=== PATIENT | female | born 1935 | race Caucasian/White ===

== ENCOUNTER 2017-03-14 06:19 | Day surgery (SDC) | payer MEDICARE, BC ==
[~2017-03-14] VITALS: Ht 154.9 cm; Wt 66.4 kg
[~2017-03-14 06:19] MED LIST: ASPI1TAB69 PO; BETH10TA2 PO; CLOP75TA PO; LOSA100T PO
[2017-03-14 06:47] VITALS: BP 177/89; PULSE 58; RESP 20; TEMP 97.9; O2SAT 97
[2017-03-14] MEDS ORDERED: ACET300T (06:51)
[2017-03-14] MEDS ORDERED: METO50TA PO (06:51)
[2017-03-14] MEDS ORDERED: ASPI81CH6 CHEW (06:51)
[2017-03-14] MEDS ORDERED: TRAM50TA PO (06:51)
[2017-03-14] MEDS ORDERED: CLON0.1T PO (06:51)
[2017-03-14] MEDS ORDERED: LISI10TA3 PO (06:51)
[2017-03-14 07:25] LABS: APTT (PATIENT) 31.3 SEC (24.3-30.1); PROTHROMBIN TIME - PATIENT 10.3 SEC (9.8-11.6)
[2017-03-14 07:26] LABS: AUTOMATED NEUTROPHIL # 5.5 TH/MM3 (1.8-7.7); BASOPHIL # 0.1 TH/MM3 (0-0.2); BASOPHIL % 0.7 % (0.0-2.0); EOSINOPHIL # 0.3 TH/MM3 (0-0.4); EOSINOPHIL % 3.1 % (0.0-4.0); HEMATOCRIT 37.1 % (35.0-46.0); HEMO FLAGS DIFF FINAL; LYMPH % 23.1 % (9.0-44.0); LYMPHOCYTE # 1.9 TH/MM3 (1.0-4.8); MEAN CELL VOLUME 80.1 FL (80.0-100.0); MEAN CORPUSCULAR HEMOGLOBIN 26.2 PG (27.0-34.0); MEAN CORPUSCULAR HGB CONC 32.7 % (32.0-36.0); MONO % 6.5 % (0.0-8.0); NEUT % 66.6 % (16.0-70.0); PLATELET COUNT 360 TH/MM3 (150-450); RED BLOOD COUNT 4.63 MIL/MM3 (4.00-5.30); RED CELL DISTRIBUTION WIDTH 15.9 % (11.6-17.2); WHITE BLOOD COUNT 8.3 TH/MM3 (4.0-11.0)
[2017-03-14] MEDS ORDERED: VANCOMYCIN 1000 MG/NS 250 ML - implanted port/tunneled catheter IV SCH ×2 (07:30)
[2017-03-14] MEDS ORDERED: ceFAZolin 2 GM PREMIX 50 ML - implanted port/tunneled catheter insertion IV SCH (07:30)
[2017-03-14] MEDS ORDERED: SODIUM CHLORIDE 0.9% 1000 ML IV SCH (07:30)
[2017-03-14] MEDS ORDERED: POVIDONE IODINE 5% (ANTISEPSIS KIT) 4 APPLICATIONS EACH NARE SCH (07:30)
[2017-03-14] MEDS ORDERED: CHLORHEXIDINE GLUCONATE 2 % 1 PACK (2 CLOTHS) TOPICAL SCH (07:30)
[2017-03-14] MEDS ORDERED: MIDAZOLAM HCL 2 MG/2 ML VIAL ONE (07:40)
[2017-03-14] MEDS ORDERED: LIDOCAINE 1%/EPINEPHrine 1:100,000 SOLN 20 ML VIAL ONE (08:17)
--- NOTE | 2017-03-14 09:04 | PD.RAD ---
Post Procedure Progress Note Pre Procedure Diagnosis: (1) Renal cell carcinoma (2) H/O unilateral nephrectomy Post Procedure Diagnosis: (1) H/O unilateral nephrectomy (2) Renal cell carcinoma Procedure Date: Mar 14, 2017 Supervising Radiologist: Dipak Schwartz Proceduralist/Assist: Glen Sauer, RT(R), [place] Traore RT(R) Anesthesia: Local, Analgesia, Conscious Sedation Plan of Activity Patient to Unit: ROPU Patient Condition: Good See PACS Report for procedural detail/treatment Central Venous Access Device Procedure 1 Right Internal Jugular Infusaport (power port) Placement single lumen Marshallese: 8 Dipak Schwartz MD Mar 14, 2017 09:04
[2017-03-14 09:10] VITALS: BP 149/69; PULSE 73; RESP 20; TEMP 97.6; O2SAT 96
[2017-03-14] MEDS ORDERED: SODIUM CHLORIDE 0.9% FLUSH 10 ML FLUSH IVF PRN (09:15)
[2017-03-14 09:25] VITALS: BP 169/86; PULSE 65; RESP 20; O2SAT 96
[2017-03-14 09:55] VITALS: BP 148/80; PULSE 66; RESP 20; O2SAT 92
[2017-03-14 10:25] VITALS: BP 159/86; PULSE 66; RESP 20; O2SAT 92
[2017-03-14 10:55] VITALS: BP 157/77; PULSE 67; RESP 20; O2SAT 96
--- NOTE | 2017-03-14 16:26 | RADRPT ---
EXAM DATE/TIME: 03/14/2017 09:07 [place] COMPARISON: No previous studies available for comparison. INDICATIONS : Patient presents with renal cancer here for port placement. MEDICAL HISTORY : Osteoarthritis HTN NISQUALLY SURGICAL HISTORY : L Neph Choly R Knee APPY Cardiac Stents ENCOUNTER: Initial ACUITY: 1 month PAIN SCORE: 0/10 FLUORO TIME: 0.4 minutes IMAGE SERIES: 1 SEDATION TIME: 30 minutes ACCESS: Right internal jugular vein SEDATION: 1.) 4 mg midazolam (Versed) IV 2.) 200 mcg fentanyl (Sublimaze) IV Prophylactic antibiotics were administered with appropriate pre-procedure timing. Vancomycin within 2 hours of procedure, Ancef (or alternative) within 1 hour of procedure. DEVICE: 1. 8 Tongan single lumen cm [id number] PROCEDURE : 1. Continuous pulse oximetry and EKG monitoring. 2. Intravenous conscious sedation. 3. Ultrasound guidance for venous access. 4. Fluoroscopic guided implantable central venous port placement. The patient was placed supine. The neck was prepped in sterile fashion. Full sterile technique was u sed, including cap, mask, sterile gloves and gown, and a large sterile sheet. Hand hygiene and 2% ch lorhexidine Betadine was utilized per protocol for cutaneous antisepsis with appropriate dry time for site. Sterile gel and sterile probe cover were utilized for ultrasound guidance. The skin and sub cutaneous tissues were infiltrated with local anesthetic solution. Under direct ultrasound guidance, central venous access was accomplished in the targeted vessel. The ultrasound images depicting access guidance were stored and saved to PACS for permanent record. A s ubcutaneous pocket was created using blunt dissection. The port was introduced to the pocket. The c atheter tubing was fed through a subcutaneous tunnel to the venotomy site. The catheter tubing was c ut to a suitable length and then was introduced through a valved Peel-Away sheath and positioned with catheter tubing tip at the cavo-atrial junction level. The pocket incision was closed with subcutic ular Vicryl suture. Steri-Strips were applied. The port was flushed and locked with heparin solutio n per protocol. Sterile dressing was applied to the site. The patient tolerated the procedure well. Conscious sedation was performed with the prescribed dosages and duration as above in the presence of an independent trained radiology nurse to assist in the monitoring of the patient. EKG and oximetry remained stable throughout the procedure. The patient tolerated the procedure well and there were no complications. The patient was sent to post anesthesia recovery in stable condition. CONCLUSION: Uncomplicated ultrasound and fluoroscopic guided implanted central venous port catheter placement as described in detail above. An 8 Tongan Power port was placed. Dipak Schwartz MD on March 14, 2017 at 16:23 Board Certified Radiologist. This report was verified electronically.
== END 2017-03-14 11:15 | disposition home or self-care (01) ==
LOC: HROP 06:19 → HRIP 06:22 → HROP 11:15
PROVIDERS: ATTEND Internal Medicine Hematology & Oncology
DX: C64.9 Malignant neoplasm of unspecified kidney, except renal pelvis (principal); I10 Essential (primary) hypertension; M19.90 Unspecified osteoarthritis, unspecified site; Z01.818 Encounter for other preprocedural examination
CPT/HCPCS: 36561; 76937; 77001; 85025; 85610; 85730; 99152; 99153; C1788; J0690; J1642; J2250; J3010; J3370; J7030; J7050

== ENCOUNTER 2017-04-23 11:13 | Emergency (ER) | payer MEDICARE, BC ==
[~2017-04-23] VITALS: Ht 154.9 cm; Wt 68.0 kg
[~2017-04-23 11:13] MED LIST changes: +ACET300T; -ASPI1TAB69 PO; +ASPI81CH6 CHEW; -BETH10TA2 PO; +CLON0.1T PO; +LISI10TA3 PO; -LOSA100T PO; +METO50TA PO; +TRAM50TA PO
[2017-04-23 11:15] VITALS: BP 142/64; PULSE 91; RESP 15; TEMP 97.9; O2SAT 97
[2017-04-23] MEDS ORDERED: SODIUM CHLOR 0.9% 1000 ML INJ 1,000 ML IV ONE (12:04)
[2017-04-23] MEDS ORDERED: REGL10TA5 PO (12:09)
[2017-04-23] MEDS ORDERED: ZOFR8TAB PO (12:09)
[2017-04-23] MEDS ORDERED: PRED10 PO (12:09)
[2017-04-23] MEDS ORDERED: DICY20TA10 PO (12:09)
[2017-04-23] MEDS ORDERED: SODIUM CHLORIDE 0.9% FLUSH 10 ML FLUSH IVF PRN (12:15)
[2017-04-23 12:34] LABS: AUTOMATED NEUTROPHIL # 6.1 TH/MM3 (1.8-7.7); BASOPHIL % 0.2 % (0.0-2.0); EOSINOPHIL # 0.1 TH/MM3 (0-0.4); EOSINOPHIL % 0.8 % (0.0-4.0); HEMATOCRIT 27.2 % (35.0-46.0); HEMOGLOBIN 9.1 GM/DL (11.6-15.3); LYMPHOCYTE # 0.1 TH/MM3 (1.0-4.8); MEAN CELL VOLUME 81.6 FL (80.0-100.0); MEAN CORPUSCULAR HEMOGLOBIN 27.3 PG (27.0-34.0); MEAN CORPUSCULAR HGB CONC 33.5 % (32.0-36.0); MEAN PLATELET VOLUME 7.2 FL (7.0-11.0); MONO % 6.9 % (0.0-8.0); MONOCYTE # 0.5 TH/MM3 (0-0.9); NEUT % 91.1 % (16.0-70.0); PLATELET COUNT 225 TH/MM3 (150-450); RED BLOOD COUNT 3.34 MIL/MM3 (4.00-5.30); RED CELL DISTRIBUTION WIDTH 17.1 % (11.6-17.2); WHITE BLOOD COUNT 6.6 TH/MM3 (4.0-11.0)
[2017-04-23 12:46] LABS: BACTERIA, URINE OCC /hpf; BILIRUBIN, URINE NEG (NEG); BLOOD, URINE TRACE (NEG); GLUCOSE,URINE NEG (NEG); KETONE, URINE NEG (NEG); MUCUS URINE FEW /lpf (OCC); NITRITE,URINE NEG (NEG); PH, URINE 5.5 (5.0-8.5); SQUAMOUS EPITHELIAL CELL URINE 4 /hpf (0-5); URINE COLOR YELLOW (YELLW/STRAW); URINE LEUKOCYTE ESTERASE LARGE (NEG)
[2017-04-23 12:54] LABS: BICARBONATE 23.3 MEQ/L (21.0-32.0); CALCIUM 8.6 MG/DL (8.5-10.1); CREATININE 1.14 MG/DL (0.50-1.00)
--- NOTE | 2017-04-23 13:18 | PD ---
HPI . Weakness Chief Complaint: General Weakness Time Seen by Provider: 12:04 Travel History International Travel<30 days: No Contact w/Intl Traveler<30days: No Traveled to known affect area: No History of Present Illness HPI Patient presents complaining with generalized weakness related to inability to take adequate nutrition. She states that she has been undergoing radiation therapy for kidney cancer. She states that she has had poor appetite and weakness was started but that it has gotten worse over the last couple of days. She has no other associated symptoms such as vomiting, fever, diarrhea, urinary tract symptoms. No modifying factors. PFSH Past Medical History Arthritis: Yes Blood Disorders: No Cancer: No Cardiovascular Problems: Yes (LEFT BBB) High Cholesterol: Yes Diabetes: No Endocrine: No Gastrointestinal Disorders: Yes (STOMACH DOESN'T EMPTY WELL, ACID REFLUX ) Genitourinary: No Hepatitis: No Hiatal Hernia: No Hypertension: Yes Immune Disorder: No Implanted Vascular Access Dvce: Yes Medical other: Yes (HIGH CHOLESTEROL, R CAROTID STENOSIS) Musculoskeletal: Yes ( OSTEOARTHRITIS, HX OF LOWER BACK SX 1999, R ROTATOR CUFF ) Neurologic: Yes (BELLS PALSY X 1 -194, MINDY CARPAL TUNNEL) Psychiatric: Yes (CLAUSTROPHOBIC) Reproductive: No Respiratory: No Immunizations Current: Yes Thyroid Disease: No ?: Not Past Surgical History Abdominal Surgery: Yes (CHOLECYSTECTOMY;) Appendectomy: Yes Body Medical Devices: 1 SCREW LEFT ANKLE Cardiac Surgery: Yes (cardiac stents) Cholecystectomy: Yes Ear Surgery: No Eye Surgery: Yes (R CATARACT SURGERY 2012) Genitourinary Surgery: No Gynecologic Surgery: Yes (1979 ABDOMINAL HYSTERECTOMY) Joint Replacement: Yes (RIGHT KNEE) Oral Surgery: Yes (TONSILLECTOMY 1943) Pacemaker: No Thoracic Surgery: No Other Surgery: Yes Social History Alcohol Use: No Tobacco Use: No Substance Use: No Allergies-Medications (Allergen,Severity, Reaction): Coded Allergies: doxycycline (Unverified Allergy, Severe, BURNING ABD SWELLING THROAT, 04/23) minocycline (Unverified Allergy, Severe, BURNING ABD SWELLING THROAT, 04/23) tigecycline (Unverified Allergy, Severe, BURNING ABD SWELLING THROAT, 04/23) Sulfa (Sulfonamide Antibiotics) (Unverified Allergy, Mild, PT NOT SURE, ) PATIENT STATES THAT SHE WAS ON FOR 4 WEEKS AND HAD TO QUIT D/T SICK TO STOMACH morphine (Unverified Adverse Reaction, Severe, 04/23/17) HYPERACTIVE AND CAN'T EAT ANY FOOD Reported Meds & Prescriptions Reported Meds & Active Scripts Active Reported Prednisone 10 Mg Tab Unknown Dose PO DAILY Dicyclomine (Dicyclomine HCl) 20 Mg Tab 20 Mg PO TID PRN Zofran (Ondansetron HCl) 8 Mg Tab 8 Mg PO TID Reglan (Metoclopramide HCl) 10 Mg Tab 10 Mg PO TIDAC Tramadol (Tramadol HCl) 50 Mg Tab 50 Mg PO Q8H PRN Clonidine (Clonidine HCl) 0.1 Mg Tab 0.1 Mg PO BID Aspirin Low Dose (Aspirin) 81 Mg Chew 81 Mg CHEW DAILY Metoprolol Tartrate 50 Mg Tab 50 Mg PO BID Lisinopril 10 Mg Tab 10 Mg PO DAILY Clopidogrel (Clopidogrel Bisulfate) 75 Mg Tab 75 Mg PO DAILY Review of Systems Except as stated in HPI: all other systems reviewed are Neg General / Constitutional: No: Fever, Chills Gastrointestinal: Positive: Loss of Appetite Neurologic: Positive: Weakness Physical Exam Narrative GENERAL: Awake and alert. She does not appear to be in any distress. SKIN: warm/dry. Good color and turgor. HEAD: Normocephalic. Atraumatic. EYES: Pupils equal and round. No scleral icterus. No injection or drainage. ENT: No nasal bleeding or discharge. Mucous membranes pink and moist. NECK: Trachea midline. Full range of motion without pain.. CARDIOVASCULAR: Regular rate and rhythm. Heart sounds are normal. RESPIRATORY: No accessory muscle use. Clear to auscultation. Breath sounds equal bilaterally. GASTROINTESTINAL: Abdomen soft. Nontender. Bowel sounds present. Nondistended. MUSCULOSKELETAL: No obvious deformities. NEUROLOGICAL: Awake and alert. No obvious cranial nerve deficits. Motor grossly within normal limits. Normal speech. PSYCHIATRIC: Appropriate mood and affect; insight and judgment normal. Data Data Last Documented VS Vital Signs Date Time Temp Pulse Resp B/P (MAP) Pulse Ox O2 Delivery O2 Flow Rate FiO2 04/23/17 11:15 97.9 91 15 142/64 (90) 97 Orders Orders Basic Metabolic Panel (Bmp) (04/23/17 12:04) Complete Blood Count With Diff (04/23/17 12:04) Urinalysis - C+S If Indicated (04/23/17 12:04) Iv Access Insert/Monitor (04/23/17 12:04) Sodium Chloride 0.9% Flush (Ns Flush) (04/23/17 12:15) Sodium Chlor 0.9% 1000 Ml Inj (Ns 1000 M (04/23/17 12:04) Urine Culture (04/23/17 12:25) Ceftriaxone Inj (Rocephin Inj) (04/23/17 13:30) Labs Laboratory Tests Test 04/23/17 12:25 White Blood Count 6.6 TH/MM3 Red Blood Count 3.34 MIL/MM3 Hemoglobin 9.1 GM/DL Hematocrit 27.2 % Mean Corpuscular Volume 81.6 FL Mean Corpuscular Hemoglobin 27.3 PG Mean Corpuscular Hemoglobin Concent 33.5 % Red Cell Distribution Width 17.1 % Platelet Count 225 TH/MM3 Mean Platelet Volume 7.2 FL Neutrophils (%) (Auto) 91.1 % Lymphocytes (%) (Auto) 1.0 % Monocytes (%) (Auto) 6.9 % Eosinophils (%) (Auto) 0.8 % Basophils (%) (Auto) 0.2 % Neutrophils # (Auto) 6.1 TH/MM3 Lymphocytes # (Auto) 0.1 TH/MM3 Monocytes # (Auto) 0.5 TH/MM3 Eosinophils # (Auto) 0.1 TH/MM3 Basophils # (Auto) 0.0 TH/MM3 CBC Comment DIFF FINAL Differential Comment Urine Color YELLOW Urine Turbidity HAZY Urine pH 5.5 Urine Specific Patterson 1.023 Urine Protein 30 mg/dL Urine Glucose (UA) NEG mg/dL Urine Ketones NEG mg/dL Urine Occult Blood TRACE Urine Nitrite NEG Urine Bilirubin NEG Urine Urobilinogen 2.0 MG/DL Urine Leukocyte Esterase LARGE Urine RBC 2 /hpf Urine WBC 44 /hpf Urine Squamous Epithelial Cells 4 /hpf Urine Bacteria OCC /hpf Urine Mucus FEW /lpf Microscopic Urinalysis Comment CULTURE INDICATED Blood Urea Nitrogen 17 MG/DL Creatinine 1.14 MG/DL Random Glucose 121 MG/DL Calcium Level 8.6 MG/DL Sodium Level 136 MEQ/L Potassium Level 4.3 MEQ/L Chloride Level 103 MEQ/L Carbon Dioxide Level 23.3 MEQ/L Anion Gap 10 MEQ/L Estimat Glomerular Filtration Rate 45 ML/MIN [facility] Medical Decision Making Medical Screen Exam Complete: Yes Emergency Medical Condition: Yes Differential Diagnosis Differential diagnosis of weakness includes but is not limited to infection, CVA , electrolyte disturbance, renal failure, hypoglycemia, UTI, ACS, acute blood loss Narrative Course Vital Signs Date Time Temp Pulse Resp B/P (MAP) Pulse Ox O2 Delivery O2 Flow Rate FiO2 04/23/17 11:15 97.9 91 15 142/64 (90) 97 This patient presents with generalized weakness and poor appetite. She looks well clinically. I have given her a liter of fluid while awaiting her lab workup. CBC & BMP Diagram 04/23/17 12:25 Calcium Level 8.6 UA shows large leukocyte esterase, occasional bacteria and 44 white cells. She will be treated with Rocephin. Patient reports that she is feeling much better. Diagnosis Primary Impression: Weakness Additional Impression: Urinary tract infection Qualified Codes: N30.00 - Acute cystitis without hematuria Patient Instructions: General Instructions, Urinary Tract Infection in Women ( [place]) Med/Other Pt SpecificInfo: Prescription(s) given Scripts Cephalexin (Keflex) 500 Mg Cap 500 MG PO Q8H for Infection for 7 Days, #21 CAP 0 Refills Prov: Tiffanie Lynn MD 04/23/17 Disposition: 01 DISCHARGE HOME Condition: Stable Tiffanie Lynn MD Apr 23, 2017 13:18
[2017-04-23] MEDS ORDERED: cefTRIAXone INJ 1,000 MG in SODIUM CHLORIDE 0.9% INJ 100 ML IV ONE (13:30)
[2017-04-23] MEDS ORDERED: CEPH-460 PO (13:49)
== END 2017-04-23 14:20 | disposition home or self-care (01) ==
LOC: NEPE 11:13
DX: C64.9 Malignant neoplasm of unspecified kidney, except renal pelvis (principal); R53.1 Weakness; N30.00 Acute cystitis without hematuria; I10 Essential (primary) hypertension
CPT/HCPCS: 80048; 81001; 85025; 87086; 96361; 96365; 99284; J0696; J1642; J7030

== ENCOUNTER 2017-05-02 16:40 | Inpatient (IN) | payer MEDICARE, BC ==
[~2017-05-02] VITALS: Ht 154.9 cm; Wt 69.0 kg
[~2017-05-02 16:40] MED LIST changes: -ACET300T; +CEPH-460 PO; +DICY20TA10 PO; +PRED10 PO; +REGL10TA5 PO; +ZOFR8TAB PO
--- NOTE | 2017-05-02 17:58 | MB ---
cc: TAE HERNANDEZ M.D., TWETHIDA MD DATE OF CONSULTATION: May 02, 2017 ATTENDING PHYSICIAN: Dr. Trevino. REASON FOR CONSULTATION The patient has a metastatic renal cell cancer admitted with intractable nausea or vomiting, abdominal pain and possible ileus. HISTORY OF PRESENT ILLNESS Patient is a very pleasant 82-year-old female with history of metastatic renal cell cancer recently completed radiation. Patient presented to the clinic this afternoon with the complaint of nausea, vomiting and abdominal pain. 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 She had left nephrectomy and resection of retroperitoneal lymph node in the [facility]. She however developed progression of disease in the retroperitoneal lymph node and left supraclavicular lymph nodes. She was started on the Nivolumab and she just completed three cycles. She also received radiation into the neck and retroperitoneum which she completed about 11 days ago. She has been having nausea and vomiting. We have been bringing her to clinic for IV fluid hydration. She also started on Reglan and Zofran and most recently Ativan for nausea. The last IV fluid hydration was last Monday. She came in today with and daughter she had complained of getting weaker. She has nausea and vomiting even taking Reglan and Zofran. She also started having diarrhea every time she tries to eat. She has decreased oral intake. She only drinks less than 16 ounces of fluid a day. She is complaining of midepigastric pain and bloating. She stated the pain sometimes radiates to the back. She denies any fever or chills. Denies chest pressure, palpitation. She has dyspnea on exertion or occasional cough. She has chronic joint pain, dysuria, hematuria, rash, pleuritis, any headache, focal numbness or weakness. PAST MEDICAL HISTORY: 1. Metastatic renal cell carcinoma 2. Chronic back pain. 3. Coronary disease 4. Gastroesophageal reflux disease 5. Hyperlipidemia. 6. Hypertension. 7. Irregular heartbeat with history of a first degree heart block. 8. Lipoma 9. Osteoarthritis. PAST SURGICAL HISTORY 1. Cataract surgery 2. Cholecystectomy 3. Hand surgery 4. Knee surgery. 5. Coronary stent placement 2015 6. Lipoma resection 7. Right knee replacement 8. Rotator cuff repair 9. Total hysterectomy 10. Tonsillectomy 11. Left radical nephrectomy 2006. 12. Appendectomy 13. Port placement. FAMILY HISTORY She has two sons and a daughter, all relatively healthy. No significant cancer history in family. SOCIAL HISTORY She does not drink alcohol. She never smoked. She lives with significant other. ALLERGIES SULFA DOXYCYCLINE MINOCYCLINE MORPHINE TIGECYCLINE CURRENT MEDICATIONS 1. Plavix. 2. Baby aspirin. 3. Reglan. 4. Zofran as an. 5. Lisinopril. 6. Metoprolol. REVIEW OF SYSTEMS CONSTITUTIONAL: As above. EYES: negative. ENT: Negative. CARDIOVASCULAR SYSTEM: Chest pressure, palpitation. RESPIRATORY: Dyspnea on exertion. Denies significant cough. GASTROINTESTINAL: As above. GENITOURINARY: Decreased urine output. MUSCULOSKELETAL: Negative. ENDOCRINE: Negative. DERMATOLOGIC: Negative. NEUROLOGIC: Negative. PSYCHIATRIC: Negative. PHYSICAL EXAMINATION: VITAL SIGNS: Temperature 97.7, pulse 109, blood pressure of 04/22/1958, O2 saturation 96%. IN GENERAL: She is alert, oriented x3 as she looks very weak and dehydrated. HEAD, EYES, EARS, NOSE, AND THROAT: Atraumatic, cephalic. Pupils equal, round and light. Muscle intact for icterus. Oropharynx dry mucosa. No lesion or thrush. NECK: No thyromegaly. LYMPHATICS: Supraclavicular, no palpable axillary lymphatic no palpable axillary, inguinal lymph node. CARDIOVASCULAR SYSTEM: Regular S1-S2 and tachycardiac no murmur. LUNGS: Clear to auscultation bilaterally. ABDOMEN: Abdomen is soft. A little distended with decreased bowel sounds. Tender in the mid epigastric area. Could not palpate liver or spleen. EXTREMITIES: No cyanosis, clubbing or edema. BACK: No tenderness. SKIN: Decreased skin turgor. NEUROLOGIC: Nonfocal. LABORATORY DATA: dated May 02, 2017, it was reviewed, hemoglobin 8.5, white blood count 3.1, platelet count of 183, creatinine 142, amylase 26, lipase 69, lactate dehydrogenase 385. ASSESSMENT 1. Dehydration due to intractable nausea and vomiting. She has been having nausea and vomiting since started on radiation. She had been coming to clinic for IV fluid hydration over the last one week. She had decreased oral intake and decreased fluid intake. She is dehydrated. She is very weak. She also has abdominal pain and decreased bowel sounds. She possibly could have ileus, I do not think that she has bowel obstruction, she had a bowel movement this morning. A pancreatic enzyme is not elevated. She appeared very weak and was admitted to the hospital from the clinic. She was started on IV fluid hydration, we will also get CT of the abdomen and pelvis for further evaluation, to see if we could find etiology of her symptoms. 2. Metastatic renal cell carcinoma clear cell type. She had left nephrectomy and resection of retroperitoneal lymph node at [facility]. The pathology showed 5 cm necrotic mass with extensive vascular invasion. Multiple small vessels also showed tumor involvement. The retrocrural lymph nodes were involved with metastatic carcinoma with perineural invasion. She later developed progression of disease and started on Votrient, she however developed hypertension and could not tolerate the treatment. She was recently started on the Nivolumab and she had three infusions so far. She also received radiation to left supraclavicular lymph node and retroperitoneum which she completed about 11 days ago. Her last Nivolumab was on April 12. We will continue to monitor her. We will get a CT of abdomen/pelvis to see if there is any progression of disease that is causing her symptoms. 3. Chronic kidney disease. Her creatinine trended up due to dehydration. 4. Anemia and leukopenia, likely is due to recent radiation. Hemoglobin down to 8.5, will monitor her closely. She has no clear evidence of bleeding. With hydration her hemoglobin may trend lower and she may require transfusion. 5. Gastroesophageal reflux disease. She has been taking Pepcid. She is complaining of the mid abdominal pain. No clear evidence of pancreatitis and will start her on PPI. 6. Recent urinary tract infections, she went to emergency room was given Keflex, however, she could not tolerate the Keflex that she was given. We gave her IV rocephin in the clinic for 3 days. She denies any urinary symptoms at this time. 7. Hyperlipidemia 8. Osteoarthritis. PLAN 1. Continue IV fluid hydration. 2. Get CT of the abdomen/pelvis without contrast 3. Continue antiemetic. 4. monitor CBC next 5. start PPI 6. DVT prophylaxis. Thank you Dr. Trevino for asking us to see this patient. MD CATARINA Fletcher/ /4:46 PM /5:22 PM TIM
[2017-05-02] MEDS: SODIUM CHLOR 0.9% 1000 ML INJ 1,000 ML IV SCH (18:28)
[2017-05-02] MEDS ORDERED: ONDANSETRON ODT 4 MG TAB PO PRN (18:30)
[2017-05-02 18:45] VITALS: BP 142/67; PULSE 111; RESP 16; TEMP 98.4; O2SAT 97
[2017-05-02] MEDS ORDERED: METOCLOPRAMIDE HCL 10 MG TAB PO PRN (18:45)
[2017-05-02 20:00] VITALS: BP 125/57; PULSE 110; PULSE 116; RESP 18; TEMP 99; O2SAT 96
--- NOTE | 2017-05-02 20:06 | HHI.HP ---
[facility] [place] [facility] Unknown Admission Diagnosis Diagnoses: Travel History International Travel<30 Days: No Contact w/Intl Traveler <30 Da: No Traveled to Known Affected Are: No History of Present Illness History from patient, her oncologist, and her family members at the bedside. Patient reported that for the past 11 days, she has been feeling very weak, with associated nausea. She did not vomit but had threw up phlegm a few times. Denies fever. Also reports of abdominal distention for the past 11 days. Her last bowel movement was this morning. Stated that she has been having diarrhea about 2-3 times a day whenever she takes Reglan. This morning, her stool was bright red blood With some clots. She assumed that this is from her hemorrhoids. She however also reports of history of diverticula disease previously. Patient reports of history of metastatic renal cell carcinoma for which she has been receiving radiation treatment to her neck and abdomen for lymphadenopathy. She has received a total of 5 radiation treatments to her neck and 20 radiation treatments to her abdomen. She denies any significant dysphagia. It was more of nausea that was bothering her and not allowing her to eat. Her last doses radiation was about a week ago. Review of systems, patient denies any specific urinary symptoms. However she states she was at emergency room for UTI. Records reveal that she was at our ER on April 15, 2017 and was prescribed Keflex. Her final urine cultures were growing colonies only 50 200,000. She was discharged from ER on Keflex. Patient states she really did not take Keflex at home because she kept throwing up and was not able to tolerated. For all her above symptoms, she has been going to her oncology clinic as an outpatient almost every day. She stated she received IV fluids treatment at the outpatient clinic at least 4 times during this period. However did not see any improvement in her symptoms. She reports that she has been so weak from all the symptoms that she really is not able to move around much at all at home. She states she was not able to hold her stool or urine long enough to make it to bathroom. She is actually usually a very active lady who is still working and still driving. Review of Systems Except as stated in HPI: all other systems reviewed are Neg Past Family Social History Past Medical History htn cad - s/p stent- last one was around 2014 or 2015 LBBB renal cell carcinoma - left nephrectomy 10/2016 hx of diverticulitis Past Surgical History 1. Cataract surgery right 2. Cholecystectomy 3. Hand surgery 4. Knee surgery. right 5. Coronary stent placement 2016 6. Lipoma resection 7. Right knee replacement 8. Rotator cuff repair right 9. Total hysterectomy 10. Tonsillectomy 11. Left radical nephrectomy 2006. 12. Appendectomy 13. Port placement. Allergies: Coded Allergies: doxycycline (Unverified Allergy, Severe, BURNING ABD SWELLING THROAT, 04/23) minocycline (Unverified Allergy, Severe, BURNING ABD SWELLING THROAT, 04/23) tigecycline (Unverified Allergy, Severe, BURNING ABD SWELLING THROAT, 04/23) Sulfa (Sulfonamide Antibiotics) (Unverified Allergy, Mild, PT NOT SURE, ) PATIENT STATES THAT SHE WAS ON FOR 4 WEEKS AND HAD TO QUIT D/T SICK TO STOMACH morphine (Unverified Adverse Reaction, Severe, 04/23/17) HYPERACTIVE AND CAN'T EAT ANY FOOD Family History sister- brain cancer and lung cancer another sister- parkinson mother- pancreas infection/ cholangitis Social History no smoking/ no etho abuse/ no drugs still working, still driving, lives with Physical Exam Vital Signs Vital Signs Date Time Temp Pulse Resp B/P (MAP) Pulse Ox O2 Delivery O2 Flow Rate FiO2 05/02/17 18:45 98.4 111 16 142/67 (92) 97 Physical Exam GENERAL: This is a well-nourished, well-developed patient, in no apparent distress. SKIN: No rashes, ecchymoses or lesions. Cool and dry. HEAD: Atraumatic. Normocephalic. No temporal or scalp tenderness. EYES: Pupils equal round and reactive. Extraocular motions intact. No scleral icterus. No injection or drainage. ENT: Nose without bleeding, purulent drainage or septal hematoma. Airway patent. NECK: Trachea midline. No JVD CARDIOVASCULAR: Regular rate and rhythm without murmurs, gallops, or rubs. RESPIRATORY: Clear to auscultation. Breath sounds equal bilaterally. No wheezes , rales, or rhonchi. GASTROINTESTINAL: Abdomen soft, non-tender, nondistended. . No guarding. Extremities: No joint tenderness, effusion, or edema noted. No calf tenderness. NEUROLOGICAL: Awake and alert. Motor and sensory grossly within normal limits. Normal speech. Caprini VTE Risk Assessment Caprini VTE Risk Assessment: Mod/High Risk (score >= 2) Caprini Risk Assessment Model Point Value = 1 Point Value = 2 Point Value = 3 Point Value = 5 Age 41-60 Minor surgery BMI > 25 kg/m2 Swollen legs Varicose veins or History of unexplained or recurrent spontaneous Oral contraceptives or hormone replacement Sepsis (< 1 month) Serious lung disease, including pneumonia (< 1 month) Abnormal pulmonary function Acute myocardial infarction Congestive heart failure (< 1 month) History of inflammatory bowel disease Medical patient at bed rest Age 61-74 Arthroscopic surgery Major open surgery (> 45 min) Laparoscopic surgery (> 45 min) Malignancy Confined to bed (> 72 hours) Immobilizing plaster cast Central venous access Age >= 75 History of VTE Family history of VTE Factor V Leiden Prothrombin [id number] Lupus anticoagulant Anticardiolipin antibodies Elevated serum homocysteine Heparin-induced thrombocytopenia Other congenital or acquired thrombophilia Stroke (< 1 month) Elective arthroplasty Hip, pelvis, or leg fracture Acute spinal cord injury (< 1 month) Prophylaxis Regimen Total Risk Factor Score Risk Level Prophylaxis Regimen 0-1 Low Early ambulation 2 Moderate Order ONE of the following: *Sequential Compression Device (SCD) *Heparin 5000 units SQ BID 3-4 Higher Order ONE of the following medications: *Heparin 5000 units SQ TID *Enoxaparin/Lovenox 40 mg SQ daily (WT < 150 kg, CrCl > 30 mL/min) *Enoxaparin/Lovenox 30 mg SQ daily (WT < 150 kg, CrCl > 10-29 mL/min) *Enoxaparin/Lovenox 30 mg SQ BID (WT < 150 kg, CrCl > 30 mL/min) AND/OR *Sequential Compression Device (SCD) 5 or more Highest Order ONE of the following medications: *Heparin 5000 units SQ TID (Preferred with Epidurals) *Enoxaparin/Lovenox 40 mg SQ daily (WT < 150 kg, CrCl > 30 mL/min) *Enoxaparin/Lovenox 30 mg SQ daily (WT < 150 kg, CrCl > 10-29 mL/min) *Enoxaparin/Lovenox 30 mg SQ BID (WT < 150 kg, CrCl > 30 mL/min) AND *Sequential Compression Device (SCD) Assessment and Plan Assessment and Plan Impression: Nausea/vomiting/abdominal painting. Possible ileus. Patient has very scant bowel sounds on examination. Bright red blood per rectum with drop in hemoglobin to 8.5 from baseline of about 11. Lower GI bleed. Possible diverticular bleed versus hemorrhoidal bleed. Generalized weakness. Multifactorial. Possible from GI loss from bleeding versus poor oral intake. Symptomatic anemia with generalized weakness to the point that she is almost bedbound htn cad - s/p stent- last one was around 2014 or 2015 LBBB Metastatic renal cell carcinoma - left nephrectomy 10/2016. Received radiation to retroperitoneum and neck for lymphadenopathy. Chronic kidney disease. hx of diverticulitis GERD Osteoarthritis Plan: Serial hemoglobin and hematocrit. Type and screen. Continue IV hydration. Hold aspirin. Hold Plavix. Watch for possible acute worsening of diverticular bleeds. CT abdomen without contrast tonight stat. 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 Likely patient will need blood transfusion overnight given that she has cardiac risk factors. We'll need to keep hemoglobin above 10. For now, would resume her Reglan, and Zofran as needed. Ativan 1 mg by mouth daily at bedtime when necessary for insomnia/anxiety. DVT prophylaxis with SCD. GI prophylaxis on pantoprazole. Discussed Condition With Patient, family members at the bedside, nursing staff Physician Certification 2 Midnight Certification Type: Admission for Inpatient Services Order for Inpatient Services The services are ordered in accordance with Medicare regulations or non- Medicare payer requirements, as applicable. In the case of services not specified as inpatient-only, they are appropriately provided as inpatient services in accordance with the 2-midnight benchmark. Estimated LOS (days): 3 days is the estimated time the patient will need to remain in the hospital, assuming treatment plan goals are met and no additional complications. Post-Hospital Plan: Home Cindi Trevino MD May 02, 2017 20:06
[2017-05-02] MEDS ORDERED: traMADol HCL 50 MG TAB PO PRN (20:30)
[2017-05-02 21:00] VITALS: PULSE 120
[2017-05-02 21:15] LABS: HEMATOCRIT 23.2 % (35.0-46.0); HEMOGLOBIN 7.5 GM/DL (11.6-15.3)
--- NOTE | 2017-05-02 21:25 | RADRPT ---
EXAM DATE/TIME: 05/02/2017 20:57 [facility] COMPARISON: No previous studies available for comparison. INDICATIONS : Abdominal pain, nausea and vomiting. ORAL CONTRAST: No oral contrast ingested. RADIATION DOSE: 13.95 CTDIvol (mGy) MEDICAL HISTORY : Cardiovascular disease. renal cancer SURGICAL HISTORY : multiple ortho surgeries ENCOUNTER: Initial ACUITY: 1 day PAIN SCALE: 5/10 LOCATION: abdomen TECHNIQUE: Volumetric scanning of the abdomen and pelvis was performed. Using automated exposure control and ad justment of the mA and/or kV according to patient size, radiation dose was kept as low as reasonably achievable to obtain optimal diagnostic quality images. DICOM format image data is available electro nically for review and comparison. The lack of IV contrast limits the diagnosis for certain organ pa thology. FINDINGS: LOWER LUNGS: Linear atelectasis versus scarring in the right lung base. Left lung base is clear. LIVER: Homogeneous density without lesion. There is no dilation of the biliary tree. No gallbladder, surgi rosario removed. There is diffuse ascites in the upper abdomen. There appears to be soft tissue periton eal implants along the right upper lateral abdomen.. SPLEEN: Normal size without lesion. PANCREAS: Within normal limits. KIDNEYS: Status post left nephrectomy. Right kidney is grossly within normal limits. No calcified right renal stones are seen. No evidence of hydronephrosis. ADRENAL GLANDS: Within normal limits. VASCULAR: There is no aortic aneurysm. Atherosclerotic changes throughout the aorta. There is evidence of prior right adenopathy. There is a left para-aortic lymph node measuring approximately 2 cm. BOWEL/MESENTERY: The stomach, small bowel, and colon demonstrate no acute abnormality. There is no free intraperitone al air. There is stool throughout the colon. There is diffuse ascites throughout the abdomen and pelv is. ABDOMINAL WALL: Within normal limits. RETROPERITONEUM: There is para-aortic adenopathy. No definite pelvic adenopathy seen however, this is limited due to t he ascites throughout the pelvis. BLADDER: No wall thickening or mass. REPRODUCTIVE: Within normal limits. INGUINAL: There is no lymphadenopathy or hernia. MUSCULOSKELETAL: Within normal limits for patient age. CONCLUSION: 1. Diffuse abdominal and pelvic ascites. 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 2. Para-aortic adenopathy suggestive of neoplastic disease. Recommend PET CT for further evaluation. 3. Status post left nephrectomy. 4. There appears to be peritoneal implants along the upper right lateral abdomen. Neoplastic disease a primary consideration. Micha White MD on May 02, 2017 at 21:15 Board Certified Radiologist. This report was verified electronically.
[2017-05-02] MEDS: LORazepam 1 MG TAB PO PRN (21:39)
[2017-05-02] MEDS: PANTOPRAZOLE SOD 40 MG DELAYED RELEASE TAB PO SCH (21:39)
[2017-05-02 22:00] VITALS: PULSE 110
[2017-05-02 23:00] VITALS: PULSE 110
[2017-05-02] MEDS ORDERED: diphenhydrAMINE HCL 25 MG CAP PO PRN (23:00)
[2017-05-02] MEDS ORDERED: FUROSEMIDE 20 MG/2 ML VIAL IV PUSH ONE (23:00)
[2017-05-03] VITALS (31 sets, daily range): BP systolic 116–155; BP diastolic 55–84; PULSE 68–110; RESP 16–18; TEMP 97.1–99.5; O2SAT 94–98
[2017-05-03] MEDS: ACETAMINOPHEN 325 MG TAB PO PRN ×2 (00:15→09:35)
[2017-05-03] MEDS: ONDANSETRON HCL 4 MG/2 ML VIAL IV PUSH PRN (02:14)
[2017-05-03] MEDS: LORazepam 1 MG TAB PO PRN (02:39)
[2017-05-03 07:00] LABS: HEMATOCRIT 24.8 % (35.0-46.0); HEMOGLOBIN 8.3 GM/DL (11.6-15.3); MEAN CELL VOLUME 82.5 FL (80.0-100.0); MEAN CORPUSCULAR HEMOGLOBIN 27.6 PG (27.0-34.0); MEAN CORPUSCULAR HGB CONC 33.4 % (32.0-36.0); MEAN PLATELET VOLUME 7.5 FL (7.0-11.0); PLATELET COUNT 136 TH/MM3 (150-450); RED BLOOD COUNT 3.01 MIL/MM3 (4.00-5.30); RED CELL DISTRIBUTION WIDTH 16.9 % (11.6-17.2); WHITE BLOOD COUNT 2.7 TH/MM3 (4.0-11.0)
[2017-05-03 07:13] LABS: CALCIUM 7.7 MG/DL (8.5-10.1); CREATININE 1.07 MG/DL (0.50-1.00)
[2017-05-03] MEDS: LISINOPRIL 10 MG TAB PO SCH (08:36)
[2017-05-03] MEDS: METOPROLOL SUCCINATE 50 MG EXTENDED RELEASE TAB PO SCH (08:36)
[2017-05-03] MEDS: PANTOPRAZOLE SOD 40 MG DELAYED RELEASE TAB PO SCH ×2 (08:36→22:04)
[2017-05-03] MEDS: SODIUM CHLOR 0.9% 1000 ML INJ 1,000 ML IV SCH ×3 (08:38→22:14)
[2017-05-03] MEDS ORDERED: CLOPIDOGREL 75 MG TAB PO SCH (09:00)
[2017-05-03] MEDS ORDERED: ASPIRIN 81 MG CHEW TAB PO SCH (09:00)
--- NOTE | 2017-05-03 10:42 | PD.CONS ---
HPI History of Present Illness This is a 82 year old female with known metastatic renal cancer s/p radiation tx to neck and abd who presented with abd distention, abd pain, n/v. She began having these symptoms in the last few weeks when she started her radiation treatments. The n/v and distention seems to be worsening. Abd pain worse in left quadrant and radiates to umbilitcal area. Rates her pain 10/10. Yesterday she had a loose bloody stool with bright red blood. Denies black tarry stool. Normally she alternates between diarrhea and constipation. Her last colonoscopy was 5-[address] Ibarra and findings of hemorrhoids, diverticulosis. She has had an EGD in past and says it was "good." (Tracie Bustillo) PFSH Past Medical History htn cad - s/p stent- last one was around 2014 or 2015 LBBB renal cell carcinoma - left nephrectomy 10/2016 hx of diverticulitis Past Surgical History 1. Cataract surgery right 2. Cholecystectomy 3. Hand surgery 4. Knee surgery. right 5. Coronary stent placement 2015 6. Lipoma resection 7. Right knee replacement 8. Rotator cuff repair right 9. Total hysterectomy 10. Tonsillectomy 11. Left radical nephrectomy 2006. 12. Appendectomy 13. Port placement. (Tracie Bustillo) Coded Allergies: doxycycline (Unverified Allergy, Severe, BURNING ABD SWELLING THROAT, 04/23) minocycline (Unverified Allergy, Severe, BURNING ABD SWELLING THROAT, 04/23) tigecycline (Unverified Allergy, Severe, BURNING ABD SWELLING THROAT, 04/23) Sulfa (Sulfonamide Antibiotics) (Unverified Allergy, Mild, PT NOT SURE, ) PATIENT STATES THAT SHE WAS ON FOR 4 WEEKS AND HAD TO QUIT D/T SICK TO STOMACH morphine (Unverified Adverse Reaction, Severe, 04/23/17) HYPERACTIVE AND CAN'T EAT ANY FOOD Family History sister- brain cancer and lung cancer another sister- parkinson mother- pancreas infection/ cholangitis Social History no smoking/ no etho abuse/ no drugs still working, still driving, lives with (Tracie Bustillo) Review of Systems Constitutional: COMPLAINS OF: Fatigue, DENIES: Fever Endocrine: DENIES: Polydipsia Eyes: DENIES: Blurred vision Ears, nose, mouth, throat: DENIES: Hearing loss Respiratory: DENIES: Cough Cardiovascular: DENIES: Chest pain Gastrointestinal: COMPLAINS OF: Abdominal pain, Bloody stools, Nausea, Vomiting , DENIES: Black stools, Hematemesis Genitourinary: DENIES: Hematuria Musculoskeletal: DENIES: Joint Swelling Integumentary: DENIES: Pruritus Hematologic/lymphatic: DENIES: Bruising Neurologic: DENIES: Abnormal gait Psychiatric: DENIES: Confusion (Tracie Bustillo) GI Exam Vitals I&O Vital Signs Date Time Temp Pulse Resp B/P (MAP) Pulse Ox O2 Delivery O2 Flow Rate FiO2 05/03/17 10:28 97.8 89 18 137/76 95 05/03/17 07:44 97.9 108 18 155/74 (101) 97 05/03/17 07:00 102 05/03/17 06:00 101 05/03/17 05:00 98.9 102 16 122/67 (85) 97 05/03/17 05:00 100 05/03/17 04:00 102 05/03/17 03:00 100 05/03/17 02:30 98.6 101 16 116/56 97 05/03/17 02:00 108 05/03/17 01:45 99.0 105 16 118/55 95 05/03/17 01:32 97.1 108 16 122/65 96 05/03/17 01:15 99.5 106 16 117/59 95 05/03/17 01:02 98.2 108 18 132/65 97 05/03/17 01:00 108 05/03/17 00:00 109 05/02/17 23:00 110 05/02/17 22:00 110 05/02/17 21:00 120 05/02/17 20:00 116 05/02/17 20:00 99.0 110 18 125/57 (79) 96 05/02/17 20:00 116 05/02/17 18:45 98.4 111 16 142/67 (92) 97 I/O 05/02/17 05/02/17 05/02/17 05/03/17 05/03/17 05/03/17 07:00 15:00 23:00 07:00 15:00 23:00 Intake Total 520 ml Output Total 425 ml Balance 95 ml Intake Oral 120 ml Packed Cells 400 ml Output Urine Total 425 ml Imaging Last Impressions Abdomen/Pelvis CT 05/02/172005 Signed Impressions: Service Date/Time: Tuesday, May 02, 2017 20:57 - CONCLUSION: 1. Diffuse abdominal and pelvic ascites. 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 2. Para-aortic adenopathy suggestive of neoplastic disease. Recommend PET CT for further evaluation. 3. Status post left nephrectomy. 4. There appears to be peritoneal implants along the upper right lateral abdomen. Neoplastic disease a primary consideration. Micha White MD Laboratory Test 05/02/17 20:52 05/03/17 06:35 Hemoglobin 7.5 GM/DL 8.3 GM/DL Hematocrit 23.2 % 24.8 % White Blood Count 2.7 TH/MM3 Red Blood Count 3.01 MIL/MM3 Mean Corpuscular Volume 82.5 FL Mean Corpuscular Hemoglobin 27.6 PG Mean Corpuscular Hemoglobin Concent 33.4 % Red Cell Distribution Width 16.9 % Platelet Count 136 TH/MM3 Mean Platelet Volume 7.5 FL Blood Urea Nitrogen 15 MG/DL Creatinine 1.07 MG/DL Random Glucose 100 MG/DL Calcium Level 7.7 MG/DL Sodium Level 131 MEQ/L Potassium Level 4.0 MEQ/L Chloride Level 102 MEQ/L Carbon Dioxide Level 21.0 MEQ/L Anion Gap 8 MEQ/L Estimat Glomerular Filtration Rate 49 ML/MIN Physical Examination HEENT: PERRL; normocephalic; atraumatic; no jaundice. CHEST: CTA CARDIAC: RRR ABDOMEN: firm, round and distended, diffusely tender; no hepatosplenomegaly; bowel sounds are present in all four quadrants. EXTREMITIES: No clubbing, cyanosis, or edema. SKIN: Normal; no rash; no jaundice. PIPE LINE GAUGER: No focal deficits; alert and oriented times three. (Tracie Bustillo [employer]) Assessment and Plan Plan ASSESSMENT - n/v, abd distention - prob r/t ascites. CT showing ascites probably malignant , neoplastic dz. paracentesis is pending - hematochezia - unclear etiology, none prior none since. last colonoscopy 5- 10 years ago, diverticulosis and hemorrhoids found. could be diverticular bleed vs hemorrhoids. Does not want colonoscopy at this time, and prep would be problematic with n/v. - anemia - 7.5 on admission, normocytic. s/p 1 x prbc. likely multifactorial, r /t radiation and metastatic dz. - metastatic renal cancer - oncology following. s/p radiation PLAN - await paracentesis - consider EGD/colonoscopy after paracentesis when pt able to tolerate prep. - monitor labs - transfuse as needed - notify GI of active bleeding - further recs to follow - supportive care pt seen by myself and Dr Asher and this note is written on her behalf (Tracie Bustillo) Physician Comments seen, examined agree with above paracentesis suggesting malignant ascites, await cytology she states she had one episode of rectal bleeding, small amount only she wiped , from a hemorrhoid she had for a long time (Tania Asher MD) Tracie Bustillo May 03, 2017 10:42 Tania Asher MD May 03, 2017 22:01
[2017-05-03 11:10] LABS: DIRECT BILIRUBIN ADULT 0.1 MG/DL (0.0-0.2)
[2017-05-03 11:13] LABS: INDIRECT BILIRUBIN 0.4 MG/DL (0.0-0.8); TOTAL BILIRUBIN ADULT 0.5 MG/DL (0.2-1.0); TOTAL PROTEIN 4.9 GM/DL (6.4-8.2)
[2017-05-03 12:20] LABS: BANDS 6 % (0-6); LYMPHOCYTES 6 % (9-44); METAMYELOCYTES 2 % (0-1); MONOCYTES 6 % (0-8); NEUTROPHIL # MANUAL DIFF 2.4 TH/MM3 (1.8-7.7); POLYS (SEG NEUTROPHILS) 80 % (16-70)
[2017-05-03 12:21] LABS: ACANTHOCYTES OCC (NORMAL)
[2017-05-03 12:23] LABS: BURR CELLS 1+ (NORMAL)
[2017-05-03 13:45] LABS: INTERNATIONAL NORMALIZED RATIO 1.1 RATIO
--- NOTE | 2017-05-03 13:46 | PD.ONC.PN ---
Subjective Subjective Remarks Afebrile overnight. Patient complaining of pain in abdomen and tightness. she is hoping she will be able to have some fluid drained off the abdomen, and that it will improve her symptoms. Had a bowel movement this morning. No vomiting since yesterday. able to keep down full liquids at this time. Objective Data Date Time Temp Pulse Resp B/P (MAP) Pulse Ox O2 Delivery O2 Flow Rate FiO2 05/03/17 13:00 68 05/03/17 12:00 68 05/03/17 11:00 93 05/03/17 11:00 98.4 91 18 121/72 96 05/03/17 10:28 97.8 89 18 137/76 95 05/03/17 09:00 110 05/03/17 08:00 106 05/03/17 07:44 97.9 108 18 155/74 (101) 97 05/03/17 07:00 102 05/03/17 06:00 101 05/03/17 05:00 98.9 102 16 122/67 (85) 97 05/03/17 05:00 100 05/03/17 04:00 102 05/03/17 03:00 100 05/03/17 02:30 98.6 101 16 116/56 97 05/03/17 02:00 108 05/03/17 01:45 99.0 105 16 118/55 95 05/03/17 01:32 97.1 108 16 122/65 96 05/03/17 01:15 99.5 106 16 117/59 95 05/03/17 01:02 98.2 108 18 132/65 97 05/03/17 01:00 108 05/03/17 00:00 109 05/02/17 23:00 110 05/02/17 22:00 110 05/02/17 21:00 120 05/02/17 20:00 116 05/02/17 20:00 99.0 110 18 125/57 (79) 96 05/02/17 20:00 116 05/02/17 18:45 98.4 111 16 142/67 (92) 97 05/03/17 05/03/17 05/03/17 07:00 15:00 23:00 Intake Total 520 ml Output Total 425 ml Balance 95 ml Result Diagram: 05/03/17 0635 05/03/17 0635 Laboratory Results Laboratory Tests Test 05/02/17 20:52 05/03/17 06:35 05/03/17 12:17 Hemoglobin 7.5 GM/DL 8.3 GM/DL Hematocrit 23.2 % 24.8 % White Blood Count 2.7 TH/MM3 Red Blood Count 3.01 MIL/MM3 Mean Corpuscular Volume 82.5 FL Mean Corpuscular Hemoglobin 27.6 PG Mean Corpuscular Hemoglobin Concent 33.4 % Red Cell Distribution Width 16.9 % Platelet Count 136 TH/MM3 Mean Platelet Volume 7.5 FL CBC Comment AUTO DIFF Differential Total Cells Counted 100 Neutrophils % (Manual) 80 % Band Neutrophils % 6 % Lymphocytes % 6 % Monocytes % 6 % Neutrophils # (Manual) 2.4 TH/MM3 Metamyelocytes 2 % Differential Comment FINAL DIFF MANUAL Atypical Lymphocytes % Platelet Estimate LOW Platelet Morphology Comment NORMAL [place] Cells 1+ Acanthocytes OCC Blood Urea Nitrogen 15 MG/DL Creatinine 1.07 MG/DL Random Glucose 100 MG/DL Calcium Level 7.7 MG/DL Sodium Level 131 MEQ/L Potassium Level 4.0 MEQ/L Chloride Level 102 MEQ/L Carbon Dioxide Level 21.0 MEQ/L Anion Gap 8 MEQ/L Estimat Glomerular Filtration Rate 49 ML/MIN Total Bilirubin 0.5 MG/DL Direct Bilirubin 0.1 MG/DL Indirect Bilirubin 0.4 MG/DL Aspartate Amino Transf (AST/SGOT) 24 U/L Alanine Aminotransferase (ALT/SGPT) 11 U/L Alkaline Phosphatase 75 U/L Total Protein 4.9 GM/DL Albumin 2.0 GM/DL Imaging Studies Last Impressions Abdomen/Pelvis CT 05/02/172005 Signed Impressions: Service Date/Time: Tuesday, May 02, 2017 20:57 - CONCLUSION: 1. Diffuse abdominal and pelvic ascites. 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 2. Para-aortic adenopathy suggestive of neoplastic disease. Recommend PET CT for further evaluation. 3. Status post left nephrectomy. 4. There appears to be peritoneal implants along the upper right lateral abdomen. Neoplastic disease a primary consideration. Micha White MD Administered Medications Medications (Trade) Dose Ordered Sig/Shavon Route PRN Reason Start Time Stop Time Status Last Admin Dose Admin Sodium Chloride 1,000 ml @ 100 mls/hr Q10H IV 05/02/17 17:43 05/03/17 08:38 Lisinopril (Prinivil) 10 mg DAILY PO 05/03/17 09:00 05/03/17 08:36 Metoprolol Succinate (Toprol Xl) 50 mg DAILY PO 05/03/17 09:00 05/03/17 08:36 Pantoprazole Sodium (Protonix) 40 mg BID PO 05/02/17 21:00 05/03/17 08:36 Lorazepam (Ativan) 1 mg TID PRN PO ANXIETY 05/02/17 18:45 05/03/17 02:39 Lorazepam (Ativan) 1 mg HS PRN PO insomnia, anxiety 05/02/17 20:45 05/02/17 21:39 Diphenhydramine HCl (Benadryl) 25 mg Q4H PRN PO SEE LABEL COMMENTS 05/02/17 23:00 05/03/17 00:16 Ondansetron HCl (Zofran Inj) 4 mg Q6HR PRN IV PUSH nausea/vomiting 05/03/17 02:15 05/03/17 02:14 Objective Remarks GENERAL: Elderly female, lying in bed, appears comfortable and in nad. SKIN: Warm and dry. HEAD: Normocephalic. EYES: No injection or drainage. NECK: Supple, trachea midline. CARDIOVASCULAR: Regular rate and rhythm RESPIRATORY: anterior reynaga clear. GASTROINTESTINAL: Abdomen distended, tight with ascites. EXTREMITIES: No cyanosis, or edema. NEUROLOGICAL: No obvious focal deficit. Assessment/Plan Problem List: (1) Nausea & vomiting ICD Codes: R11.2 - Nausea with vomiting, unspecified Plan: --on IVF hydration + anti-emetic therapy (2) Renal cell carcinoma ICD Codes: C64.9 - Malignant neoplasm of unspecified kidney, except renal pelvis Plan: --will resume Nivolumab outpatient. History (brought forward from initial consult for continuity of care) --left nephrectomy and resection of retroperitoneal lymph node in the [facility]. pathology showed 5 cm necrotic mass with extensive vascular invasion. Multiple small vessels also showed tumor involvement. --was started on Votrient but could not tolerate-->had hypertensive crisis. --developed progression of disease in the retroperitoneal lymph node and left supraclavicular lymph nodes. --was started on the Nivolumab completed three cycles. (last Nivolumab on ), also received radiation to the neck and retroperitoneum -->completed 11 days ago. --has been having nausea and vomiting ever since starting XRT. -- have been bringing her to clinic for IV fluid hydration. She also started on Reglan and Zofran but had to be admitted when nausea bc intractable/patient had weakness. (3) anemia + leukopenia Plan: --d/t recent radiation --monitor and transfuse as needed. (4) Acid reflux disease ICD Codes: K21.9 - Gastro-esophageal reflux disease without esophagitis Plan: --on PPI (5) DVT prophylaxis Plan: --start SCD's Assessment 82y/o female with recently diagnosed metastatic renal cell cancer admitted with intractable nausea and vomiting, abdominal pain and possible ileus. h/o Coronary disease, Gastroesophageal reflux disease Hyperlipidemia. Hypertension. Irregular heartbeat with history of a first degree heart block. Plan 1. start SCD's for DVT prophylaxis. 2. continue IVF hydration 3. consult IR re: ascites seen on CT abdomen. will see if she has enough to drain via Ultrasound guided paracentesis. Attending Statement The exam, history, and the medical decision-making described in the above note were completed with the assistance of the mid-level provider. I reviewed and agree with the findings presented. I attest that I had a [id number] encounter with the patient on the same day, and personally performed and documented my assessment and findings in the medical record. C/o upper abdominal pain and tightness. Nausea controlled and no emesis. Had 1 UPRBC transfusion and Hgb has trended up. Reviewed CT with pt and her daughter. She has developed new ascites and peritoneal caking likely progression of disease. There are paraaortic LN but seems smaller. I do not think she is responding to the Nivolumab but she only received 3 cyc so far. Her disease appear to be aggressive and prognosis is guarded. Will consult radiology for US guided paracentesis to see if it would alleviate her abdominal pain and send for cytology. Gi also was consulted to evaluate her CHRISTOPHER pain. Discussed living will with patient and daughter. Their questions were answered. Problem Qualifiers (1) Nausea & vomiting: Gael Seaman May 03, 2017 13:46 Yousif Jones MD May 03, 2017 16:11
--- NOTE | 2017-05-03 14:48 | HHI.PR ---
Subjective Remarks Complaints of abdominal pain today. Pain for paracentesis today. Continue monitoring of hemoglobin is in process. Objective Vital Signs Date Time Temp Pulse Resp B/P (MAP) Pulse Ox O2 Delivery O2 Flow Rate FiO2 05/03/17 13:00 68 05/03/17 12:00 68 05/03/17 11:00 93 05/03/17 11:00 98.4 91 18 121/72 96 05/03/17 10:28 97.8 89 18 137/76 95 05/03/17 09:00 110 05/03/17 08:00 106 05/03/17 07:44 97.9 108 18 155/74 (101) 97 05/03/17 07:00 102 05/03/17 06:00 101 05/03/17 05:00 98.9 102 16 122/67 (85) 97 05/03/17 05:00 100 05/03/17 04:00 102 05/03/17 03:00 100 05/03/17 02:30 98.6 101 16 116/56 97 05/03/17 02:00 108 05/03/17 01:45 99.0 105 16 118/55 95 05/03/17 01:32 97.1 108 16 122/65 96 05/03/17 01:15 99.5 106 16 117/59 95 05/03/17 01:02 98.2 108 18 132/65 97 05/03/17 01:00 108 05/03/17 00:00 109 05/02/17 23:00 110 05/02/17 22:00 110 05/02/17 21:00 120 05/02/17 20:00 116 05/02/17 20:00 99.0 110 18 125/57 (79) 96 05/02/17 20:00 116 05/02/17 18:45 98.4 111 16 142/67 (92) 97 I/O 05/02/17 05/02/17 05/02/17 05/03/17 05/03/17 05/03/17 07:00 15:00 23:00 07:00 15:00 23:00 Intake Total 520 ml Output Total 425 ml Balance 95 ml Intake Oral 120 ml Packed Cells 400 ml Output Urine Total 425 ml Result Diagram: 05/03/1735 05/03/17634 Objective Remarks GENERAL: NAD, A&Ox3 HEAD: Normocephalic. NECK: Supple, trachea midline. No lymphadenopathy. EYES: No scleral icterus. No injection or drainage. CARDIOVASCULAR: Regular rate and rhythm without murmurs, gallops, or rubs. RESPIRATORY: Breath sounds equal bilaterally. No accessory muscle use. GASTROINTESTINAL: Abdomen soft, distended and tender abdomen. MUSCULOSKELETAL: No cyanosis, or edema. SKIN: Warm and dry. NEURO: No focal neurological deficitis. A/P Problem List: (1) Ascites ICD Code: R18.8 - Other ascites (2) Anemia ICD Code: D64.9 - Anemia, unspecified (3) Renal cell carcinoma ICD Code: C64.9 - Malignant neoplasm of unspecified kidney, except renal pelvis Assessment and Plan 82-year-old female admitted secondary to irretractable nausea and vomiting with possible GI bleed in the presence of anemia, abdominal pain, and ascites. Anemia Possible GI bleed Continue to monitor hemoglobin Transfuse as needed Aspirin on hold Plavix on hold Ascites Likely related to radiation and chemotherapy Paracentesis Follow hemoglobin postprocedure Follow clinically Renal cell carcinoma And collagen following Hypertension Continue baseline treatment Follow blood pressures Adjust treatments as needed Coronary artery disease Coronary stent No chest pain reported Follow clinically Chronic kidney disease Follow renal function Osteoarthritis Left bundle-branch block Gastroesophageal reflux disease History of diverticulitis Follow clinically No changes to baseline treatment DVT prophylaxis SCD. Simone Campos MD May 03, 2017 14:48
[2017-05-03] MEDS ORDERED: LIDOCAINE HCL 1% 20 ML VIAL ONE (16:28)
[2017-05-03] MEDS ORDERED: ALBUMIN HUMAN 25% 12.5GM-W/25GM FOR 37.5GM IV ONE (16:30)
[2017-05-03] MEDS ORDERED: ALBUMIN HUMAN 25% 25GM-W/12.5GM FOR 37.5GM IV ONE (16:30)
--- NOTE | 2017-05-03 16:53 | RADRPT ---
EXAM DATE/TIME: 05/03/2017 15:02 [place] COMPARISON: No previous studies available for comparison. INDICATIONS : Ascites. MEDICAL HISTORY : Hypercholesterolemia. Hypertension. Gastroesophageal reflux disease. Hyperlipidemia. Arthritis. Chemo therapy. Renal cancer. SURGICAL HISTORY : Appendectomy. Cholecystectomy. Hysterectomy. Nephrectomy. Bilateral knee arthroscopy. ENCOUNTER: Initial ACUITY: 1 day PAIN SCORE: 3/10 LOCATION: Right lower quadrant FLUID: Total volume of 6300 cc of bloody fluid was removed. Fluid was sent to lab for ordered studies. Post procedure scanning reveals no hematoma or other complication. TECHNIQUE: 1. Ultrasound guidance for abdominal paracentesis. 2. Paracentesis. The risks, benefits, and alternatives to ultrasound guided paracentesis were explained to the patient in detail including the risk of bleeding and infection. Written and verbal informed consent was obt ained. With the patient on the ultrasound table, ultrasound imaging was used to select the most appropriate approach for paracentesis. Overlying skin was prepped and draped in the usual sterile fashion and wi th a local anesthetic, a dermatotomy was made with an 11 blade scalpel. A 6 [place] [id number] ca theter was introduced into the peritoneal cavity and fluid was collected. The patient tolerated the procedure well and left the ultrasound suite in stable condition. CONCLUSION: Uncomplicated ultrasound guided paracentesis. Kye Johnston MD on May 03, 2017 at 16:50 Board Certified Radiologist. This report was verified electronically.
[2017-05-03 18:47] LABS: PERITONEAL LYMPHS 16 %; PERITONEAL MESOTHELIAL 58 %; PERITONEAL POLYS(SEGS) 26 %
[2017-05-03 18:49] LABS: PERITONEAL RBC 532145 /MM3 (0-0)
[2017-05-04] VITALS (27 sets, daily range): BP systolic 112–126; BP diastolic 59–68; PULSE 94–104; RESP 15–18; TEMP 98–98.9; O2SAT 95–98
[2017-05-04 06:50] LABS: BASOPHIL % 0.7 % (0.0-2.0); EOSINOPHIL % 1.5 % (0.0-4.0); HEMOGLOBIN 8.4 GM/DL (11.6-15.3); LYMPH % 10.8 % (9.0-44.0); LYMPHOCYTE # 0.3 TH/MM3 (1.0-4.8); MEAN CELL VOLUME 83.3 FL (80.0-100.0); MEAN CORPUSCULAR HEMOGLOBIN 28.2 PG (27.0-34.0); MEAN CORPUSCULAR HGB CONC 33.8 % (32.0-36.0); MEAN PLATELET VOLUME 7.7 FL (7.0-11.0); MONO % 7.8 % (0.0-8.0); MONOCYTE # 0.2 TH/MM3 (0-0.9); NEUT % 79.2 % (16.0-70.0); PLATELET COUNT 129 TH/MM3 (150-450); WHITE BLOOD COUNT 2.5 TH/MM3 (4.0-11.0)
[2017-05-04 07:28] LABS: ALBUMIN 1.9 GM/DL (3.4-5.0); AST (GOT) 26 U/L (15-37); BICARBONATE 18.8 MEQ/L (21.0-32.0); BLOOD UREA NITROGEN 12 MG/DL (7-18); CALCIUM 7.7 MG/DL (8.5-10.1); CHLORIDE 104 MEQ/L (98-107); CREATININE 1.08 MG/DL (0.50-1.00); GLOMERULAR FILTRATION RATE 48 ML/MIN (>89); GLUCOSE,RANDOM 96 MG/DL (74-106); SODIUM (NA) 131 MEQ/L (136-145)
[2017-05-04 07:29] LABS: ALT (GPT) 9 U/L (10-53)
[2017-05-04 07:32] LABS: ALKALINE PHOSPHATASE 67 U/L (45-117); TOTAL BILIRUBIN ADULT 0.6 MG/DL (0.2-1.0); TOTAL PROTEIN 4.2 GM/DL (6.4-8.2)
[2017-05-04] MEDS: LISINOPRIL 10 MG TAB PO SCH (09:00)
[2017-05-04] MEDS: METOPROLOL SUCCINATE 50 MG EXTENDED RELEASE TAB PO SCH (09:00)
[2017-05-04] MEDS: PANTOPRAZOLE SOD 40 MG DELAYED RELEASE TAB PO SCH (09:01)
--- NOTE | 2017-05-04 09:27 | PD.ONC.PN ---
Subjective Subjective Remarks Afebrile overnight. Patient resting in bed in nad. Feels much better after paracentesis yesterday. 6L were removed. She ate a small dinner last night and had eggs and escobar for breakfast this AM. Objective Data Date Time Temp Pulse Resp B/P (MAP) Pulse Ox O2 Delivery O2 Flow Rate FiO2 05/04/17 07:43 98.8 96 18 121/59 (79) 97 05/04/17 06:00 101 05/04/17 05:00 99 05/04/17 04:00 101 05/04/17 04:00 98.9 98 15 125/62 (83) 98 05/04/17 03:00 101 05/04/17 02:00 102 05/04/17 01:00 102 05/04/17 00:00 98.0 102 16 122/68 (86) 95 05/04/17 00:00 101 05/03/17 23:00 100 05/03/17 22:00 102 05/03/17 21:00 102 05/03/17 20:00 99.0 108 18 135/67 (89) 96 05/03/17 20:00 102 05/03/17 19:00 106 05/03/17 18:00 98 05/03/17 16:53 97.8 98 18 150/75 (100) 98 05/03/17 16:41 98.0 97 16 138/63 (88) 94 05/03/17 16:23 98.5 94 16 135/64 (87) 96 05/03/17 14:38 98.5 92 18 153/84 95 05/03/17 14:00 92 05/03/17 13:00 68 05/03/17 12:00 68 05/03/17 11:00 93 05/03/17 11:00 98.4 91 18 121/72 96 05/03/17 10:28 97.8 89 18 137/76 95 05/04/17 05/04/17 05/04/17 07:00 15:00 23:00 Intake Total 240 ml 1000 ml Output Total 1000 ml Balance -760 ml 1000 ml Result Diagram: 05/04/17 0530 05/04/17 0530 Laboratory Results Laboratory Tests Test 05/03/17 13:20 05/03/17 15:40 05/04/17 05:30 Prothrombin Time 11.0 SEC Prothromb Time International Ratio 1.1 RATIO Peritoneal Fluid WBC 502 /MM3 Peritoneal Fluid RBC 020929 /MM3 Peritoneal Fluid Neutrophils 26 % Peritoneal Fluid Lymphocytes 16 % Peritoneal Fluid Mesothelial Cells 58 % Peritoneal Fluid Comment Peritoneal Fluid Total Protein 3.0 GM/DL Peritoneal Fluid Albumin 1.8 G/DL Peritoneal Fluid LDH 675 U/L Peritoneal Fluid Glucose 106 MG/DL White Blood Count 2.5 TH/MM3 Red Blood Count 3.00 MIL/MM3 Hemoglobin 8.4 GM/DL Hematocrit 25.0 % Mean Corpuscular Volume 83.3 FL Mean Corpuscular Hemoglobin 28.2 PG Mean Corpuscular Hemoglobin Concent 33.8 % Red Cell Distribution Width 17.0 % Platelet Count 129 TH/MM3 Mean Platelet Volume 7.7 FL Neutrophils (%) (Auto) 79.2 % Lymphocytes (%) (Auto) 10.8 % Monocytes (%) (Auto) 7.8 % Eosinophils (%) (Auto) 1.5 % Basophils (%) (Auto) 0.7 % Neutrophils # (Auto) 2.0 TH/MM3 Lymphocytes # (Auto) 0.3 TH/MM3 Monocytes # (Auto) 0.2 TH/MM3 Eosinophils # (Auto) 0.0 TH/MM3 Basophils # (Auto) 0.0 TH/MM3 CBC Comment DIFF FINAL Differential Comment Blood Urea Nitrogen 12 MG/DL Creatinine 1.08 MG/DL Random Glucose 96 MG/DL Total Protein 4.2 GM/DL Albumin 1.9 GM/DL Calcium Level 7.7 MG/DL Alkaline Phosphatase 67 U/L Aspartate Amino Transf (AST/SGOT) 26 U/L Alanine Aminotransferase (ALT/SGPT) 9 U/L Total Bilirubin 0.6 MG/DL Sodium Level 131 MEQ/L Potassium Level 4.2 MEQ/L Chloride Level 104 MEQ/L Carbon Dioxide Level 18.8 MEQ/L Anion Gap 8 MEQ/L Estimat Glomerular Filtration Rate 48 ML/MIN Culture Results Microbiology Date/Time Source Procedure Growth Status 05/03/17 15:40 Fluid Peritoneal Fluid Gram Stain - Final Resulted 05/03/17 15:40 Fluid Peritoneal Fluid Body Fluid Culture Pending Resulted Administered Medications Medications (Trade) Dose Ordered Sig/Shavon Route PRN Reason Start Time Stop Time Status Last Admin Dose Admin Lisinopril (Prinivil) 10 mg DAILY PO 05/03/17 09:00 05/03/17 08:36 Metoprolol Succinate (Toprol Xl) 50 mg DAILY PO 05/03/17 09:00 05/03/17 08:36 Lorazepam (Ativan) 1 mg TID PRN PO ANXIETY 05/02/17 18:45 05/03/17 02:39 Lorazepam (Ativan) 1 mg HS PRN PO insomnia, anxiety 05/02/17 20:45 05/02/17 21:39 Diphenhydramine HCl (Benadryl) 25 mg Q4H PRN PO SEE LABEL COMMENTS 05/02/17 23:00 05/03/17 00:16 Ondansetron HCl (Zofran Inj) 4 mg Q6HR PRN IV PUSH nausea/vomiting 05/03/17 02:15 05/03/17 02:14 Objective Remarks GENERAL: Elderly female, supine in bed in nad. SKIN: Warm and dry. HEAD: Normocephalic. EYES: No injection or drainage. NECK: Supple, trachea midline. CARDIOVASCULAR: Regular rate and rhythm RESPIRATORY: anterior reynaga clear. GASTROINTESTINAL: Abdomen soft, non-tender. EXTREMITIES: No cyanosis, or edema. NEUROLOGICAL: No obvious focal deficit. Assessment/Plan Problem List: (1) Renal cell carcinoma ICD Codes: C64.9 - Malignant neoplasm of unspecified kidney, except renal pelvis Plan: --will resume Nivolumab outpatient. History (brought forward from initial consult for continuity of care) --left nephrectomy and resection of retroperitoneal lymph node in the [facility]. pathology showed 5 cm necrotic mass with extensive vascular invasion. Multiple small vessels also showed tumor involvement. --was started on Votrient but could not tolerate-->had hypertensive crisis. --developed progression of disease in the retroperitoneal lymph node and left supraclavicular lymph nodes. --was started on the Nivolumab completed three cycles. (last Nivolumab on ), also received radiation to the neck and retroperitoneum -->completed 11 days ago. --has been having nausea and vomiting ever since starting XRT. -- have been bringing her to clinic for IV fluid hydration. She also started on Reglan and Zofran but had to be admitted when nausea bc intractable/patient had weakness. (2) anemia + leukopenia Plan: --d/t recent radiation --monitor and transfuse as needed. (3) Acid reflux disease ICD Codes: K21.9 - Gastro-esophageal reflux disease without esophagitis Plan: --on PPI (4) DVT prophylaxis Plan: --start SCD's Assessment 82y/o female with recently diagnosed metastatic renal cell cancer admitted with intractable nausea and vomiting, abdominal pain and possible ileus. h/o Coronary disease, Gastroesophageal reflux disease Hyperlipidemia. Hypertension. Irregular heartbeat with history of a first degree heart block. Plan 1. resume ASA and Plavix 2. stop IVF 3. reduce Protonix to once daily. 4. consult PT/OT 5. if patient tolerating a regular diet today without n/v and PT/OT evaluate, could be discharged home tomorrow. Attending Statement The exam, history, and the medical decision-making described in the above note were completed with the assistance of the mid-level provider. I reviewed and agree with the findings presented. I attest that I had a [id number] encounter with the patient on the same day, and personally performed and documented my assessment and findings in the medical record.Feels better after paracentesis with removal of 6.3L of bloody fluid. Abdominal pain has improved. Tolerated small amount of food last night.. I have reviewed her CT and compared to her last PET, the peritoneal implants are new and ascites is also new. The ascitic fluid has SAAg 0.2 c/w malignant ascites. The paraaortic LN have decreased in size and appear to respond to XRT. I have discussed with . I have extensive discussion with pt and her children. I told her she likely has failed Nivolumab as she has significant progression of disease. I plan to switch her to Cabozantinib. She wants to be aggressive with treatment. I will have my office staff assist them to get the Cabozantinib. They have many questions which were answered. Stop IVF and consult PT to evaluate pt and see if she is going to need outpt PT. Gale Seaman May 04, 2017 09:27 Yousif Jones MD May 04, 2017 14:11
--- NOTE | 2017-05-04 11:57 | HHI.PR ---
Subjective Remarks Abdominal pain has resolved. Patient is status post 6.3 L removal of fluid from paracentesis yesterday. Albumin was replaced IV. Electrolytes are being monitored. Objective Vital Signs Date Time Temp Pulse Resp B/P (MAP) Pulse Ox O2 Delivery O2 Flow Rate FiO2 05/04/17 11:30 98.6 97 18 112/60 (77) 98 05/04/17 10:00 102 05/04/17 09:00 100 05/04/17 08:00 96 05/04/17 07:43 98.8 96 18 121/59 (79) 97 05/04/17 07:00 96 05/04/17 06:00 101 05/04/17 05:00 99 05/04/17 04:00 101 05/04/17 04:00 98.9 98 15 125/62 (83) 98 05/04/17 03:00 101 05/04/17 02:00 102 05/04/17 01:00 102 05/04/17 00:00 98.0 102 16 122/68 (86) 95 05/04/17 00:00 101 05/03/17 23:00 100 05/03/17 22:00 102 05/03/17 21:00 102 05/03/17 20:00 99.0 108 18 135/67 (89) 96 05/03/17 20:00 102 05/03/17 19:00 106 05/03/17 18:00 98 05/03/17 16:53 97.8 98 18 150/75 (100) 98 05/03/17 16:41 98.0 97 16 138/63 (88) 94 05/03/17 16:23 98.5 94 16 135/64 (87) 96 05/03/17 14:38 98.5 92 18 153/84 95 05/03/17 14:00 92 05/03/17 13:00 68 05/03/17 12:00 68 I/O 05/03/17 05/03/17 05/03/17 05/04/17 05/04/17 05/04/17 07:00 15:00 23:00 07:00 15:00 23:00 Intake Total 520 ml 400 ml 1480 ml 240 ml 1000 ml Output Total 425 ml 901 ml 1000 ml Balance 95 ml 400 ml 579 ml -760 ml 1000 ml Intake Oral 120 ml 480 ml 240 ml IV Total 1000 ml 1000 ml Packed Cells 400 ml 400 ml Output Urine Total 425 ml 900 ml 1000 ml Stool Total 1 ml Result Diagram: 05/04/1752905/04/17529 Objective Remarks GENERAL: NAD, A&Ox3 HEAD: Normocephalic. NECK: Supple, trachea midline. No lymphadenopathy. EYES: No scleral icterus. No injection or drainage. CARDIOVASCULAR: Regular rate and rhythm without murmurs, gallops, or rubs. RESPIRATORY: Breath sounds equal bilaterally. No accessory muscle use. GASTROINTESTINAL: Abdomen soft, distended and tender abdomen. MUSCULOSKELETAL: No cyanosis, or edema. SKIN: Warm and dry. NEURO: No focal neurological deficitis. A/P Problem List: (1) Ascites ICD Code: R18.8 - Other ascites (2) Anemia ICD Code: D64.9 - Anemia, unspecified (3) Renal cell carcinoma ICD Code: C64.9 - Malignant neoplasm of unspecified kidney, except renal pelvis Assessment and Plan 82-year-old female admitted secondary to irretractable nausea and vomiting with possible GI bleed in the presence of anemia, abdominal pain, and ascites. Albumin replace. V. No electrolytes disturbance. Continue to monitor labs. Labs ordered for further monitoring. Electrolytes are not disturbed thus far. Physical therapy evaluation initiated. Anemia Possible GI bleed Continue to monitor hemoglobin Transfuse as needed Aspirin on hold Plavix on hold Ascites Likely related to radiation and chemotherapy Paracentesis Follow hemoglobin postprocedure Follow clinically Renal cell carcinoma And collagen following Hypertension Continue baseline treatment Follow blood pressures Adjust treatments as needed Coronary artery disease Coronary stent No chest pain reported Follow clinically Chronic kidney disease Follow renal function Osteoarthritis Left bundle-branch block Gastroesophageal reflux disease History of diverticulitis Follow clinically No changes to baseline treatment DVT prophylaxis SCD. Simone Campos MD May 04, 2017 11:57
[2017-05-04] MEDS: CLOPIDOGREL 75 MG TAB PO SCH (12:35)
[2017-05-04] MEDS: ASPIRIN 81 MG CHEW TAB PO SCH (12:35)
--- NOTE | 2017-05-04 12:51 | HHI.GIFU ---
Subjective Remarks Pt OOB to chair, feeling better after paracentesis yesterday. + semiformed BM yesterday. NV improved. tolerating diet. (Tracie Bustillo) Objective Vitals I&O Vital Signs Date Time Temp Pulse Resp B/P (MAP) Pulse Ox O2 Delivery O2 Flow Rate FiO2 05/04/17 12:00 100 05/04/17 11:30 98.6 97 18 112/60 (77) 98 05/04/17 11:00 97 05/04/17 10:00 102 05/04/17 09:00 100 05/04/17 08:00 96 05/04/17 07:43 98.8 96 18 121/59 (79) 97 05/04/17 07:00 96 05/04/17 06:00 101 05/04/17 05:00 99 05/04/17 04:00 101 05/04/17 04:00 98.9 98 15 125/62 (83) 98 05/04/17 03:00 101 05/04/17 02:00 102 05/04/17 01:00 102 05/04/17 00:00 98.0 102 16 122/68 (86) 95 05/04/17 00:00 101 05/03/17 23:00 100 05/03/17 22:00 102 05/03/17 21:00 102 05/03/17 20:00 99.0 108 18 135/67 (89) 96 05/03/17 20:00 102 05/03/17 19:00 106 05/03/17 18:00 98 05/03/17 16:53 97.8 98 18 150/75 (100) 98 05/03/17 16:41 98.0 97 16 138/63 (88) 94 05/03/17 16:23 98.5 94 16 135/64 (87) 96 05/03/17 14:38 98.5 92 18 153/84 95 05/03/17 14:00 92 05/03/17 13:00 68 I/O 05/03/17 05/03/17 05/03/17 05/04/17 05/04/17 05/04/17 06:59 14:59 22:59 06:59 14:59 22:59 Intake Total 520 ml 400 ml 1480 ml 240 ml 1000 ml Output Total 425 ml 901 ml 1000 ml Balance 95 ml 400 ml 579 ml -760 ml 1000 ml Intake Oral 120 ml 480 ml 240 ml IV Total 1000 ml 1000 ml Packed Cells 400 ml 400 ml Output Urine Total 425 ml 900 ml 1000 ml Stool Total 1 ml Laboratory Laboratory Tests Test 05/03/17 13:20 05/03/17 15:40 05/04/17 05:30 Prothrombin Time 11.0 Prothromb Time International Ratio 1.1 Peritoneal Fluid WBC 502 Peritoneal Fluid RBC [id number] Peritoneal Fluid Neutrophils 26 Peritoneal Fluid Lymphocytes 16 Peritoneal Fluid Mesothelial Cells 58 Peritoneal Fluid Comment Peritoneal Fluid Total Protein 3.0 Peritoneal Fluid Albumin 1.8 Peritoneal Fluid LDH 675 Peritoneal Fluid Glucose 106 White Blood Count 2.5 Red Blood Count 3.00 Hemoglobin 8.4 Hematocrit 25.0 Mean Corpuscular Volume 83.3 Mean Corpuscular Hemoglobin 28.2 Mean Corpuscular Hemoglobin Concent 33.8 Red Cell Distribution Width 17.0 Platelet Count 129 Mean Platelet Volume 7.7 Neutrophils (%) (Auto) 79.2 Lymphocytes (%) (Auto) 10.8 Monocytes (%) (Auto) 7.8 Eosinophils (%) (Auto) 1.5 Basophils (%) (Auto) 0.7 Neutrophils # (Auto) 2.0 Lymphocytes # (Auto) 0.3 Monocytes # (Auto) 0.2 Eosinophils # (Auto) 0.0 Basophils # (Auto) 0.0 CBC Comment DIFF FINAL Differential Comment Blood Urea Nitrogen 12 Creatinine 1.08 Random Glucose 96 Total Protein 4.2 Albumin 1.9 Calcium Level 7.7 Alkaline Phosphatase 67 Aspartate Amino Transf (AST/SGOT) 26 Alanine Aminotransferase (ALT/SGPT) 9 Total Bilirubin 0.6 Sodium Level 131 Potassium Level 4.2 Chloride Level 104 Carbon Dioxide Level 18.8 Anion Gap 8 Estimat Glomerular Filtration Rate 48 Date/Time Source Procedure Growth Status 05/03/17 15:40 Fluid Peritoneal Fluid Gram Stain - Final Resulted 05/03/17 15:40 Fluid Peritoneal Fluid Body Fluid Culture Pending Resulted Imaging Last Impressions Cyst Biopsy Asp-Paracentesis US 05/03/17 0000 Signed Impressions: Service Date/Time: Wednesday, May 03, 2017 15:02 - CONCLUSION: Uncomplicated ultrasound guided paracentesis. Kye Johnston MD Abdomen/Pelvis CT 05/02/172005 Signed Impressions: Service Date/Time: Tuesday, May 02, 2017 20:57 - CONCLUSION: 1. Diffuse abdominal and pelvic ascites. 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 2. Para-aortic adenopathy suggestive of neoplastic disease. Recommend PET CT for further evaluation. 3. Status post left nephrectomy. 4. There appears to be peritoneal implants along the upper right lateral abdomen. Neoplastic disease a primary consideration. Micha White MD Physical Exam HEENT: PERRL; normocephalic; atraumatic; no jaundice. CHEST: CTA CARDIAC: RRR ABDOMEN: Soft, distended, nontender; no hepatosplenomegaly; bowel sounds are present in all four quadrants. EXTREMITIES: No clubbing, cyanosis, or edema. SKIN: Normal; no rash; no jaundice. CHANGE ADVISOR: No focal deficits; alert and oriented times three. (Tracie Bustillo) Assessment and Plan Plan ASSESSMENT - n/v, abd distention - prob r/t ascites. CT showing ascites probably malignant , neoplastic dz. paracentesis is pending - hematochezia - unclear etiology, none prior none since. last colonoscopy 5- 10 years ago, diverticulosis and hemorrhoids found. could be diverticular bleed vs hemorrhoids. Does not want colonoscopy at this time, and prep would be problematic with n/v. - anemia - 7.5 on admission, normocytic. s/p 1 x prbc. likely multifactorial, r /t radiation and metastatic dz. - metastatic renal cancer - oncology following. s/p radiation 05/04/17 n/v and abd pain improved after paracenteis, 6.3L removed. SAAG 0.1. tolerating diet. 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
[2017-05-04] MEDS: ONDANSETRON HCL 4 MG/2 ML VIAL IV PUSH PRN (13:16)
[2017-05-04] MEDS: SUCRALFATE 1 GM/10 ML CUP PO SCH ×2 (17:07→20:43)
[2017-05-05] VITALS (20 sets, daily range): BP systolic 104–138; BP diastolic 50–75; PULSE 88–106; RESP 16–20; TEMP 85–99.2; O2SAT 97–99
[2017-05-05] MEDS: LORazepam 1 MG TAB PO PRN ×2 (01:02→19:50)
[2017-05-05] MEDS ORDERED: SIMETHICONE 125 MG CHEWABLE TAB PO ONE (02:15)
[2017-05-05 06:46] LABS: AUTOMATED NEUTROPHIL # 2.1 TH/MM3 (1.8-7.7); BASOPHIL % 0.7 % (0.0-2.0); EOSINOPHIL # 0.1 TH/MM3 (0-0.4); EOSINOPHIL % 1.8 % (0.0-4.0); HEMATOCRIT 28.6 % (35.0-46.0); HEMOGLOBIN 9.6 GM/DL (11.6-15.3); LYMPH % 14.7 % (9.0-44.0); LYMPHOCYTE # 0.4 TH/MM3 (1.0-4.8); MEAN CELL VOLUME 82.9 FL (80.0-100.0); MEAN CORPUSCULAR HEMOGLOBIN 27.9 PG (27.0-34.0); MEAN CORPUSCULAR HGB CONC 33.6 % (32.0-36.0); MONO % 7.6 % (0.0-8.0); MONOCYTE # 0.2 TH/MM3 (0-0.9); NEUT % 75.2 % (16.0-70.0); PLATELET COUNT 153 TH/MM3 (150-450); RED BLOOD COUNT 3.45 MIL/MM3 (4.00-5.30); RED CELL DISTRIBUTION WIDTH 17.3 % (11.6-17.2); WHITE BLOOD COUNT 2.8 TH/MM3 (4.0-11.0)
[2017-05-05 06:54] LABS: ALT (GPT) 10 U/L (10-53); AST (GOT) 24 U/L (15-37); BICARBONATE 20.9 MEQ/L (21.0-32.0); BLOOD UREA NITROGEN 12 MG/DL (7-18); CALCIUM 7.9 MG/DL (8.5-10.1); CHLORIDE 103 MEQ/L (98-107); CREATININE 0.96 MG/DL (0.50-1.00); GLOMERULAR FILTRATION RATE 55 ML/MIN (>89); GLUCOSE,RANDOM 107 MG/DL (74-106); SODIUM (NA) 132 MEQ/L (136-145)
[2017-05-05 06:56] LABS: ALKALINE PHOSPHATASE 83 U/L (45-117); TOTAL BILIRUBIN ADULT 0.6 MG/DL (0.2-1.0); TOTAL PROTEIN 4.7 GM/DL (6.4-8.2)
[2017-05-05] MEDS: PANTOPRAZOLE SOD 40 MG DELAYED RELEASE TAB PO SCH (08:07)
[2017-05-05] MEDS: LISINOPRIL 10 MG TAB PO SCH (08:07)
[2017-05-05] MEDS: SUCRALFATE 1 GM/10 ML CUP PO SCH ×4 (08:07→19:49)
--- NOTE | 2017-05-05 09:47 | HHI.FF ---
Face to Face Verification Diagnosis: (1) Ascites (2) Renal cell carcinoma (3) H/O unilateral nephrectomy Physical Therapy Order: Evaluate and Treat, Improve ambulation, Strength and gait training I have seen patient Maryana Newman on 05/05/17. My clinical findings support the need for the requested home health care services because: Ltd mobility - disease progression Deconditioned w/ increased weakness High risk of falls I certify that my clinical findings support that this patient is homebound because: Unsteady gait/balance Unsafe to leave home unassisted Unable to use public transportation Simone Campos MD May 05, 2017 09:47
[2017-05-05] MEDS: ASPIRIN 81 MG CHEW TAB PO SCH (10:19)
[2017-05-05] MEDS: METOPROLOL SUCCINATE 50 MG EXTENDED RELEASE TAB PO SCH (10:19)
[2017-05-05] MEDS ORDERED: SIMETHICONE 80 MG CHEWABLE TAB CHEW PRN (11:00)
--- NOTE | 2017-05-05 11:02 | HHI.PR ---
Subjective Remarks No significant abdominal pain today. Patient does report some bloating and feelings of indigestion and gas. She also says she feels weak and does not feel stable for home yet. Her appetite has been poor. Objective Vital Signs Date Time Temp Pulse Resp B/P (MAP) Pulse Ox O2 Delivery O2 Flow Rate FiO2 05/05/17 10:05 104 05/05/17 08:00 98.6 104 20 119/64 (82) 98 05/05/17 06:04 98.1 101 16 111/50 (70) 98 05/05/17 06:00 106 05/05/17 05:00 104 05/05/17 04:00 103 05/05/17 03:00 102 05/05/17 02:00 102 05/05/17 01:00 102 05/05/17 00:00 98.0 100 16 104/72 (83) 97 05/05/17 00:00 100 05/04/17 23:00 98 05/04/17 22:00 94 05/04/17 21:00 96 05/04/17 20:00 99 05/04/17 20:00 98.7 99 17 126/63 (84) 98 05/04/17 19:00 102 05/04/17 18:00 102 05/04/17 17:00 104 05/04/17 16:00 100 05/04/17 15:35 98.2 104 18 117/64 (81) 97 05/04/17 15:00 102 05/04/17 14:00 100 05/04/17 13:00 104 05/04/17 12:00 100 05/04/17 11:30 98.6 97 18 112/60 (77) 98 I/O 05/04/17 05/04/17 05/04/17 05/05/17 05/05/17 05/05/17 07:00 15:00 23:00 07:00 15:00 23:00 Intake Total 240 ml 1000 ml 820 ml Output Total 1000 ml 1000 ml 450 ml Balance -760 ml 1000 ml -180 ml -450 ml Intake Oral 240 ml 820 ml IV Total 1000 ml Output Urine Total 1000 ml 1000 ml 450 ml # Bowel Movements 0 Result Diagram: 05/05/17 0605/05/17 06 Objective Remarks GENERAL: NAD, A&Ox3 HEAD: Normocephalic. NECK: Supple, trachea midline. No lymphadenopathy. EYES: No scleral icterus. No injection or drainage. CARDIOVASCULAR: Regular rate and rhythm without murmurs, gallops, or rubs. RESPIRATORY: Breath sounds equal bilaterally. No accessory muscle use. GASTROINTESTINAL: Abdomen soft, distended and tender abdomen. MUSCULOSKELETAL: No cyanosis, or edema. SKIN: Warm and dry. NEURO: No focal neurological deficitis. A/P Problem List: (1) Ascites ICD Code: R18.8 - Other ascites (2) Anemia ICD Code: D64.9 - Anemia, unspecified (3) Renal cell carcinoma ICD Code: C64.9 - Malignant neoplasm of unspecified kidney, except renal pelvis Assessment and Plan 82-year-old female admitted secondary to irretractable nausea and vomiting with possible GI bleed in the presence of anemia, abdominal pain, and ascites. Continue to monitor labs. Labs ordered for further monitoring. Electrolytes are not disturbed thus far. Gas-X started for indigestion. Continue to work with physical therapy. Possible discharge tomorrow if her clinical status improves. Anemia Possible GI bleed Continue to monitor hemoglobin Transfuse as needed Aspirin on hold Plavix on hold Ascites Likely related to radiation and chemotherapy Paracentesis Follow hemoglobin postprocedure Follow clinically Renal cell carcinoma And collagen following Hypertension Continue baseline treatment Follow blood pressures Adjust treatments as needed Coronary artery disease Coronary stent No chest pain reported Follow clinically Chronic kidney disease Follow renal function Osteoarthritis Left bundle-branch block Gastroesophageal reflux disease History of diverticulitis Follow clinically No changes to baseline treatment DVT prophylaxis SCD. Discharge planning Discharge home tomorrow if patient's strength improves and if her appetite and indigestion improve Simone Campos MD May 05, 2017 11:02
[2017-05-05 13:20] LABS: AMYLASE BODY FLUID 11 U/L; AMYLASE BODY FLUID TYPE PERITONEAL
--- NOTE | 2017-05-05 13:20 | PD.ONC.PN ---
Subjective Subjective Remarks Afebrile overnight. Patient still having difficulty tolerating a normal diet. she ate an omelette this AM and was able to keep that down. states last night she had some "irritation" in her stomach. she states she has a sensitive stomach in general and is not entirely sure what the reason for the irritation is. she is not sure the carafate helps, but states she doesn't like the way it tastes. Denies any pain at present. Objective Data Date Time Temp Pulse Resp B/P (MAP) Pulse Ox O2 Delivery O2 Flow Rate FiO2 05/05/17 10:05 104 05/05/17 08:00 98.6 104 20 119/64 (82) 98 05/05/17 06:04 98.1 101 16 111/50 (70) 98 05/05/17 06:00 106 05/05/17 05:00 104 05/05/17 04:00 103 05/05/17 03:00 102 05/05/17 02:00 102 05/05/17 01:00 102 05/05/17 00:00 98.0 100 16 104/72 (83) 97 05/05/17 00:00 100 05/04/17 23:00 98 05/04/17 22:00 94 05/04/17 21:00 96 05/04/17 20:00 99 05/04/17 20:00 98.7 99 17 126/63 (84) 98 05/04/17 19:00 102 05/04/17 18:00 102 05/04/17 17:00 104 05/04/17 16:00 100 05/04/17 15:35 98.2 104 18 117/64 (81) 97 05/04/17 15:00 102 05/04/17 14:00 100 05/05/17 05/05/17 05/05/17 07:00 15:00 23:00 Output Total 450 ml Balance -450 ml Result Diagram: 05/05/17 0600 05/05/17 06 Laboratory Results Laboratory Tests Test 05/05/17 06:00 White Blood Count 2.8 TH/MM3 Red Blood Count 3.45 MIL/MM3 Hemoglobin 9.6 GM/DL Hematocrit 28.6 % Mean Corpuscular Volume 82.9 FL Mean Corpuscular Hemoglobin 27.9 PG Mean Corpuscular Hemoglobin Concent 33.6 % Red Cell Distribution Width 17.3 % Platelet Count 153 TH/MM3 Mean Platelet Volume 8.0 FL Neutrophils (%) (Auto) 75.2 % Lymphocytes (%) (Auto) 14.7 % Monocytes (%) (Auto) 7.6 % Eosinophils (%) (Auto) 1.8 % Basophils (%) (Auto) 0.7 % Neutrophils # (Auto) 2.1 TH/MM3 Lymphocytes # (Auto) 0.4 TH/MM3 Monocytes # (Auto) 0.2 TH/MM3 Eosinophils # (Auto) 0.1 TH/MM3 Basophils # (Auto) 0.0 TH/MM3 CBC Comment DIFF FINAL Differential Comment Blood Urea Nitrogen 12 MG/DL Creatinine 0.96 MG/DL Random Glucose 107 MG/DL Total Protein 4.7 GM/DL Albumin 2.0 GM/DL Calcium Level 7.9 MG/DL Alkaline Phosphatase 83 U/L Aspartate Amino Transf (AST/SGOT) 24 U/L Alanine Aminotransferase (ALT/SGPT) 10 U/L Total Bilirubin 0.6 MG/DL Sodium Level 132 MEQ/L Potassium Level 4.0 MEQ/L Chloride Level 103 MEQ/L Carbon Dioxide Level 20.9 MEQ/L Anion Gap 8 MEQ/L Estimat Glomerular Filtration Rate 55 ML/MIN Culture Results Microbiology Date/Time Source Procedure Growth Status 05/03/17 15:40 Fluid Peritoneal Fluid Gram Stain - Final Resulted 05/03/17 15:40 Fluid Peritoneal Fluid Body Fluid Culture - Preliminary NO GROWTH IN 48 HOURS. Resulted Administered Medications Medications (Trade) Dose Ordered Sig/Shavon Route PRN Reason Start Time Stop Time Status Last Admin Dose Admin Lisinopril (Prinivil) 10 mg DAILY PO 05/03/17 09:00 05/03/17 08:36 Metoprolol Succinate (Toprol Xl) 50 mg DAILY PO 05/03/17 09:00 05/05/17 10:19 Lorazepam (Ativan) 1 mg TID PRN PO ANXIETY 05/02/17 18:45 05/03/17 02:39 Lorazepam (Ativan) 1 mg HS PRN PO insomnia, anxiety 05/02/17 20:45 05/05/17 01:02 Diphenhydramine HCl (Benadryl) 25 mg Q4H PRN PO SEE LABEL COMMENTS 05/02/17 23:00 05/03/17 00:16 Ondansetron HCl (Zofran Inj) 4 mg Q6HR PRN IV PUSH nausea/vomiting 05/03/17 02:15 05/04/17 13:16 Pantoprazole Sodium (Protonix) 40 mg DAILY PO 05/05/17 09:00 05/05/17 08:07 Clopidogrel Bisulfate (Plavix) 75 mg DAILY PO 05/04/17 12:06 05/04/17 12:35 Aspirin (Aspirin Chew) 81 mg DAILY PO 05/04/17 12:08 05/05/17 10:19 Sucralfate (Carafate Liq) 1 gm ACHS PO 05/04/17 17:00 05/05/17 08:07 Objective Remarks GENERAL: Elderly female, lying in bed in nad. she appears comfortable. SKIN: Warm and dry. HEAD: Normocephalic. EYES: No injection or drainage. NECK: Supple, trachea midline. CARDIOVASCULAR: Regular rate and rhythm RESPIRATORY: anterior reynaga clear. GASTROINTESTINAL: Abdomen soft, there is no tenderness to palpation. +BS EXTREMITIES: No cyanosis, or edema. NEUROLOGICAL: awake and alert. Assessment/Plan Problem List: (1) Renal cell carcinoma ICD Codes: C64.9 - Malignant neoplasm of unspecified kidney, except renal pelvis Plan: --will resume Nivolumab outpatient. History (brought forward from initial consult for continuity of care) --left nephrectomy and resection of retroperitoneal lymph node in the [facility]. pathology showed 5 cm necrotic mass with extensive vascular invasion. Multiple small vessels also showed tumor involvement. --was started on Votrient but could not tolerate-->had hypertensive crisis. --developed progression of disease in the retroperitoneal lymph node and left supraclavicular lymph nodes. --was started on the Nivolumab completed three cycles. (last Nivolumab on ), also received radiation to the neck and retroperitoneum -->completed 11 days ago. --has been having nausea and vomiting ever since starting XRT. -- have been bringing her to clinic for IV fluid hydration. She also started on Reglan and Zofran but had to be admitted when nausea bc intractable/patient had weakness. (2) anemia + leukopenia Plan: --d/t recent radiation --monitor and transfuse as needed. (3) Acid reflux disease ICD Codes: K21.9 - Gastro-esophageal reflux disease without esophagitis Plan: --on PPI (4) DVT prophylaxis Plan: --SCD's Assessment 82y/o female with recently diagnosed metastatic renal cell cancer admitted with intractable nausea and vomiting, abdominal pain and possible ileus. h/o Coronary disease, Gastroesophageal reflux disease Hyperlipidemia. Hypertension. Irregular heartbeat with history of a first degree heart block. Plan 1. ok to discharge when tolerating a regular diet. 2. monitor CBC 3. once discharged, follow up in clinic. Attending Statement The exam, history, and the medical decision-making described in the above note were completed with the assistance of the mid-level provider. I reviewed and agree with the findings presented. I attest that I had a [id number] encounter with the patient on the same day, and personally performed and documented my assessment and findings in the medical record. Still has CHRISTOPHER discomfort but overall improved. Still weak and not tolerating PO well. Ascitic fluid cytology pending. Continue PT. Once she tolerqate PO, can be d/ c and f/u oncology clinic. Plan to treat her with Cabozantinib. Gale Seaman May 05, 2017 13:20 Yousif Jones MD May 05, 2017 19:10
[2017-05-05] MEDS: CLOPIDOGREL 75 MG TAB PO SCH (13:27)
--- NOTE | 2017-05-05 14:46 | HHI.GIFU ---
Subjective Remarks Pt is resting in bed, friend at bedside. She states she is going to be discharged tomorrow. Discussed EGD with her she would like to do this with Dr. Ibarra who she is already established with on an outpatient basis. (Libia Mcgregor) Objective Vitals I&O Vital Signs Date Time Temp Pulse Resp B/P (MAP) Pulse Ox O2 Delivery O2 Flow Rate FiO2 05/05/17 13:19 98.1 89 20 129/75 (93) 99 05/05/17 10:05 104 05/05/17 08:00 98.6 104 20 119/64 (82) 98 05/05/17 06:04 98.1 101 16 111/50 (70) 98 05/05/17 06:00 106 05/05/17 05:00 104 05/05/17 04:00 103 05/05/17 03:00 102 05/05/17 02:00 102 05/05/17 01:00 102 05/05/17 00:00 98.0 100 16 104/72 (83) 97 05/05/17 00:00 100 05/04/17 23:00 98 05/04/17 22:00 94 05/04/17 21:00 96 05/04/17 20:00 99 05/04/17 20:00 98.7 99 17 126/63 (84) 98 05/04/17 19:00 102 05/04/17 18:00 102 05/04/17 17:00 104 05/04/17 16:00 100 05/04/17 15:35 98.2 104 18 117/64 (81) 97 05/04/17 15:00 102 I/O 05/04/17 05/04/17 05/04/17 05/05/17 05/05/17 05/05/17 07:00 15:00 23:00 07:00 15:00 23:00 Intake Total 240 ml 1000 ml 820 ml Output Total 1000 ml 1000 ml 450 ml Balance -760 ml 1000 ml -180 ml -450 ml Intake Oral 240 ml 820 ml IV Total 1000 ml Output Urine Total 1000 ml 1000 ml 450 ml # Bowel Movements 0 Laboratory Laboratory Tests Test 05/05/17 06:00 White Blood Count 2.8 Red Blood Count 3.45 Hemoglobin 9.6 Hematocrit 28.6 Mean Corpuscular Volume 82.9 Mean Corpuscular Hemoglobin 27.9 Mean Corpuscular Hemoglobin Concent 33.6 Red Cell Distribution Width 17.3 Platelet Count 153 Mean Platelet Volume 8.0 Neutrophils (%) (Auto) 75.2 Lymphocytes (%) (Auto) 14.7 Monocytes (%) (Auto) 7.6 Eosinophils (%) (Auto) 1.8 Basophils (%) (Auto) 0.7 Neutrophils # (Auto) 2.1 Lymphocytes # (Auto) 0.4 Monocytes # (Auto) 0.2 Eosinophils # (Auto) 0.1 Basophils # (Auto) 0.0 CBC Comment DIFF FINAL Differential Comment Blood Urea Nitrogen 12 Creatinine 0.96 Random Glucose 107 Total Protein 4.7 Albumin 2.0 Calcium Level 7.9 Alkaline Phosphatase 83 Aspartate Amino Transf (AST/SGOT) 24 Alanine Aminotransferase (ALT/SGPT) 10 Total Bilirubin 0.6 Sodium Level 132 Potassium Level 4.0 Chloride Level 103 Carbon Dioxide Level 20.9 Anion Gap 8 Estimat Glomerular Filtration Rate 55 Date/Time Source Procedure Growth Status 05/03/17 15:40 Fluid Peritoneal Fluid Gram Stain - Final Resulted 05/03/17 15:40 Fluid Peritoneal Fluid Body Fluid Culture - Preliminary NO GROWTH IN 48 HOURS. Resulted Imaging Last Impressions Cyst Biopsy Asp-Paracentesis US 05/03/17 0000 Signed Impressions: Service Date/Time: Wednesday, May 03, 2017 15:02 - CONCLUSION: Uncomplicated ultrasound guided paracentesis. Kye Johnston MD Abdomen/Pelvis CT 05/02/172005 Signed Impressions: Service Date/Time: Tuesday, May 02, 2017 20:57 - CONCLUSION: 1. Diffuse abdominal and pelvic ascites. 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 2. Para-aortic adenopathy suggestive of neoplastic disease. Recommend PET CT for further evaluation. 3. Status post left nephrectomy. 4. There appears to be peritoneal implants along the upper right lateral abdomen. Neoplastic disease a primary consideration. Micha White MD Physical Exam HEENT:Normocephalic; atraumatic; no jaundice. CHEST: CTA CARDIAC: RRR ABDOMEN: Distended, soft, nontender, bowel sounds active EXTREMITIES: No clubbing, cyanosis, or edema. SKIN: Normal; no rash; no jaundice. SHOWCASE TRIMMER: No focal deficits; alert and oriented times three. (Libia Mcgregor) Assessment and Plan Plan ASSESSMENT - n/v, abd distention - prob r/t ascites. CT showing ascites probably malignant , neoplastic dz. paracentesis is pending - hematochezia - unclear etiology, none prior none since. last colonoscopy 5- 10 years ago, diverticulosis and hemorrhoids found. could be diverticular bleed vs hemorrhoids. Does not want colonoscopy at this time, and prep would be problematic with n/v. - anemia - 7.5 on admission, normocytic. s/p 1 x prbc. likely multifactorial, r /t radiation and metastatic dz. - metastatic renal cancer - oncology following. s/p radiation (05/04/17) n/v and abd pain improved after paracentesis, 6.3L removed. SAAG 0.1. tolerating diet. HH stable (05/05) --> Per attending notes and pt she is planned for discharge tomorrow if feeling OK. Peritoneal cytology still pending. Discussed EGD with pt, however, she would like to do this on an outpatient basis with Dr. Ibarra who she has already established care with. Improvement in H/H today, currently 9.6/28.6, has not received transfusion in 2 days. Tolerating diet OK, with some nausea. Denies emesis. PLAN - WENDI - Follow up with Stacey as discussed - Peritoneal cytology pending - OK to DC from a GI standpoint Pt has been seen and evaluated by myself and Dr. Asher and this note is written on her behalf (Libia Mcgregor) Physician Comments agree gi will sign off (Tania Asher MD) Libia Mcgregor May 05, 2017 14:46 Tania Asher MD May 05, 2017 20:58
[2017-05-06] VITALS (13 sets, daily range): BP systolic 100–108; BP diastolic 54–63; PULSE 89–106; RESP 18–20; TEMP 98.4–99; O2SAT 95–99
[2017-05-06] MEDS: LORazepam 1 MG TAB PO PRN (00:47)
[2017-05-06] MEDS: SUCRALFATE 1 GM/10 ML CUP PO SCH ×2 (08:00→12:00)
[2017-05-06] MEDS: LISINOPRIL 10 MG TAB PO SCH (09:00)
[2017-05-06] MEDS: PANTOPRAZOLE SOD 40 MG DELAYED RELEASE TAB PO SCH ×2 (09:00→10:43)
--- NOTE | 2017-05-06 09:30 | PD.ONC.PN ---
Subjective Subjective Remarks Afebrile Patient reports her appetite is still not that good States she had Carafate last night that did not help much with her abdominal discomfort Asking if an appetite stimulant might help Objective Data Date Time Temp Pulse Resp B/P (MAP) Pulse Ox O2 Delivery O2 Flow Rate FiO2 05/06/17 06:00 101 05/06/17 05:33 99.0 106 18 106/63 (77) 95 05/06/17 04:07 96 05/06/17 03:00 100 05/06/17 02:00 96 05/06/17 01:00 90 05/06/17 00:38 98.8 89 20 105/54 (71) 95 05/06/17 00:07 90 05/05/17 23:00 90 05/05/17 22:00 94 05/05/17 21:00 94 05/05/17 20:19 92 05/05/17 19:53 99.2 89 18 138/73 (94) 98 05/05/17 19:00 92 05/05/17 17:48 90 05/05/17 16:49 98.1 88 20 127/62 (83) 98 05/05/17 13:19 98.1 89 20 129/75 (93) 99 05/05/17 12:00 94 05/05/17 10:05 104 05/06/17 05/06/17 05/06/17 07:00 15:00 23:00 Intake Total 480 ml Output Total 250 ml Balance 230 ml Result Diagram: 05/05/17 0600 05/05/17 0600 Culture Results Microbiology Date/Time Source Procedure Growth Status 05/03/17 15:40 Fluid Peritoneal Fluid Gram Stain - Final Resulted 05/03/17 15:40 Fluid Peritoneal Fluid Body Fluid Culture - Preliminary NO GROWTH IN 48 HOURS. Resulted Administered Medications Medications (Trade) Dose Ordered Sig/Shavon Route PRN Reason Start Time Stop Time Status Last Admin Dose Admin Lisinopril (Prinivil) 10 mg DAILY PO 05/03/17 09:00 05/03/17 08:36 Metoprolol Succinate (Toprol Xl) 50 mg DAILY PO 05/03/17 09:00 05/05/17 10:19 Lorazepam (Ativan) 1 mg TID PRN PO ANXIETY 05/02/17 18:45 05/05/17 19:50 Lorazepam (Ativan) 1 mg HS PRN PO insomnia, anxiety 05/02/17 20:45 05/06/17 00:47 Diphenhydramine HCl (Benadryl) 25 mg Q4H PRN PO SEE LABEL COMMENTS 05/02/17 23:00 05/03/17 00:16 Ondansetron HCl (Zofran Inj) 4 mg Q6HR PRN IV PUSH nausea/vomiting 05/03/17 02:15 05/04/17 13:16 Pantoprazole Sodium (Protonix) 40 mg DAILY PO 05/05/17 09:00 05/05/17 08:07 Clopidogrel Bisulfate (Plavix) 75 mg DAILY PO 05/04/17 12:06 05/05/17 13:27 Aspirin (Aspirin Chew) 81 mg DAILY PO 05/04/17 12:08 05/05/17 10:19 Sucralfate (Carafate Liq) 1 gm ACHS PO 05/04/17 17:00 05/05/17 19:49 Objective Remarks GENERAL: Elderly female, lying in bed in no acute distress. Her is at bedside SKIN: Warm and dry. HEAD: Normocephalic. EYES: No injection or drainage. NECK: Supple, trachea midline. CARDIOVASCULAR: Regular rate and rhythm RESPIRATORY: anterior reynaga clear. GASTROINTESTINAL: Abdomen soft, mildly distended. There is no tenderness to palpation. +BS EXTREMITIES: No cyanosis, or edema. NEUROLOGICAL: Normal speech. Moving all extremities. No obvious focal deficit. Assessment/Plan Problem List: (1) Renal cell carcinoma ICD Codes: C64.9 - Malignant neoplasm of unspecified kidney, except renal pelvis Plan: --will resume crizotinib outpatient. History (brought forward from initial consult for continuity of care) --left nephrectomy and resection of retroperitoneal lymph node in the [facility]. pathology showed 5 cm necrotic mass with extensive vascular invasion. Multiple small vessels also showed tumor involvement. --was started on Votrient but could not tolerate-->had hypertensive crisis. --developed progression of disease in the retroperitoneal lymph node and left supraclavicular lymph nodes. --was started on the Nivolumab completed three cycles. (last Nivolumab on ), also received radiation to the neck and retroperitoneum -->completed 11 days ago. --has been having nausea and vomiting ever since starting XRT. -- have been bringing her to clinic for IV fluid hydration. She also started on Reglan and Zofran but had to be admitted when nausea bc intractable/patient had weakness. (2) anemia + leukopenia Plan: --d/t recent radiation --monitor and transfuse as needed. (3) Acid reflux disease ICD Codes: K21.9 - Gastro-esophageal reflux disease without esophagitis Plan: --on PPI and Carafate (4) DVT prophylaxis Plan: --SCD's Assessment 82y/o female with recently diagnosed metastatic renal cell cancer admitted with intractable nausea and vomiting, abdominal pain and possible ileus. h/o Coronary disease, Gastroesophageal reflux disease Hyperlipidemia. Hypertension. Irregular heartbeat with history of a first degree heart block. Plan 1. Plan to initiate therapy with cabozantinib on an outpatient basis 2. Continue to encourage good by mouth intake 3. Once discharged, patient instructed to call if she begins to have increased abdominal discomfort 4. Await ascitic fluid cytology results Attending Statement The exam, history, and the medical decision-making described in the above note were completed with the assistance of the mid-level provider. I reviewed and agree with the findings presented. I attest that I had a [id number] encounter with the patient on the same day, and personally performed and documented my assessment and findings in the medical record. Feeling better. Still has decreased appetite and upper abdominal discomfort. Abdomen is soft. and non tender. Will give her Megace. She can be d/c and f/u oncology clinic 1 week. Plan to start cabozantinib once she received the drugs. More Silverman May 06, 2017 09:30 Yousif Jones MD May 06, 2017 12:30
[2017-05-06 10:08] LABS: AUTOMATED NEUTROPHIL # 2.1 TH/MM3 (1.8-7.7); BASOPHIL % 0.5 % (0.0-2.0); EOSINOPHIL % 1.2 % (0.0-4.0); HEMATOCRIT 26.3 % (35.0-46.0); HEMOGLOBIN 8.9 GM/DL (11.6-15.3); LYMPH % 16.4 % (9.0-44.0); LYMPHOCYTE # 0.5 TH/MM3 (1.0-4.8); MEAN CELL VOLUME 81.8 FL (80.0-100.0); MEAN CORPUSCULAR HEMOGLOBIN 27.7 PG (27.0-34.0); MEAN CORPUSCULAR HGB CONC 33.9 % (32.0-36.0); MEAN PLATELET VOLUME 8.2 FL (7.0-11.0); MONO % 7.2 % (0.0-8.0); MONOCYTE # 0.2 TH/MM3 (0-0.9); NEUT % 74.7 % (16.0-70.0); PLATELET COUNT 157 TH/MM3 (150-450); RED BLOOD COUNT 3.21 MIL/MM3 (4.00-5.30); RED CELL DISTRIBUTION WIDTH 17.1 % (11.6-17.2); WHITE BLOOD COUNT 2.8 TH/MM3 (4.0-11.0)
[2017-05-06] MEDS ORDERED: WHEE1EAC TOPICAL (10:17)
--- NOTE | 2017-05-06 10:20 | HHI.DS ---
Discharge Summary Admission Date May 02, 2017 at 21:14 Discharge Date: May 06, 2017 Admitting Diagnosis (1) Weakness ICD Code: R53.1 - Weakness Diagnosis: Principal (2) Renal cell carcinoma ICD Code: C64.9 - Malignant neoplasm of unspecified kidney, except renal pelvis Diagnosis: Principal (3) Ascites ICD Code: R18.8 - Other ascites Diagnosis: Principal Procedures Paracentesis Brief History - From Admission History from patient, her oncologist, and her family members at the bedside. Patient reported that for the past 11 days, she has been feeling very weak, with associated nausea. She did not vomit but had threw up phlegm a few times. Denies fever. Also reports of abdominal distention for the past 11 days. Her last bowel movement was this morning. Stated that she has been having diarrhea about 2-3 times a day whenever she takes Reglan. This morning, her stool was bright red blood With some clots. She assumed that this is from her hemorrhoids. She however also reports of history of diverticula disease previously. Patient reports of history of metastatic renal cell carcinoma for which she has been receiving radiation treatment to her neck and abdomen for lymphadenopathy. She has received a total of 5 radiation treatments to her neck and 20 radiation treatments to her abdomen. She denies any significant dysphagia. It was more of nausea that was bothering her and not allowing her to eat. Her last doses radiation was about a week ago. Review of systems, patient denies any specific urinary symptoms. However she states she was at emergency room for UTI. Records reveal that she was at our ER on April 15, 2017 and was prescribed Keflex. Her final urine cultures were growing colonies only 50 200,000. She was discharged from ER on Keflex. Patient states she really did not take Keflex at home because she kept throwing up and was not able to tolerated. For all her above symptoms, she has been going to her oncology clinic as an outpatient almost every day. She stated she received IV fluids treatment at the outpatient clinic at least 4 times during this period. However did not see any improvement in her symptoms. She reports that she has been so weak from all the symptoms that she really is not able to move around much at all at home. She states she was not able to hold her stool or urine long enough to make it to bathroom. She is actually usually a very active lady who is still working and still driving. CBC/BMP: 05/06/17 0935 05/05/17 0600 Significant Findings Laboratory Tests Test 05/03/17 13:20 05/03/17 15:40 05/04/17 05:30 05/05/17 06:00 Peritoneal Fluid WBC 502 /MM3 (0-10) Peritoneal Fluid RBC 927740 /MM3 (0-0) White Blood Count 2.5 TH/MM3 (4.0-11.0) 2.8 TH/MM3 (4.0-11.0) Red Blood Count 3.00 MIL/MM3 (4.00-5.30) 3.45 MIL/MM3 (4.00-5.30) Hemoglobin 8.4 GM/DL (11.6-15.3) 9.6 GM/DL (11.6-15.3) Hematocrit 25.0 % (35.0-46.0) 28.6 % (35.0-46.0) Platelet Count 129 TH/MM3 (150-450) Neutrophils (%) (Auto) 79.2 % (16.0-70.0) 75.2 % (16.0-70.0) Lymphocytes # (Auto) 0.3 TH/MM3 (1.0-4.8) 0.4 TH/MM3 (1.0-4.8) Creatinine 1.08 MG/DL (0.50-1.00) Total Protein 4.2 GM/DL (6.4-8.2) 4.7 GM/DL (6.4-8.2) Albumin 1.9 GM/DL (3.4-5.0) 2.0 GM/DL (3.4-5.0) Calcium Level 7.7 MG/DL (8.5-10.1) 7.9 MG/DL (8.5-10.1) Alanine Aminotransferase (ALT/SGPT) 9 U/L (10-53) Sodium Level 131 MEQ/L (136-145) 132 MEQ/L (136-145) Carbon Dioxide Level 18.8 MEQ/L (21.0-32.0) 20.9 MEQ/L (21.0-32.0) Estimat Glomerular Filtration Rate 48 ML/MIN (>89) 55 ML/MIN (>89) Red Cell Distribution Width 17.3 % (11.6-17.2) Random Glucose 107 MG/DL (74-106) Test 05/06/17 09:35 White Blood Count 2.8 TH/MM3 (4.0-11.0) Red Blood Count 3.21 MIL/MM3 (4.00-5.30) Hemoglobin 8.9 GM/DL (11.6-15.3) Hematocrit 26.3 % (35.0-46.0) Neutrophils (%) (Auto) 74.7 % (16.0-70.0) Lymphocytes # (Auto) 0.5 TH/MM3 (1.0-4.8) Hospital Course Mrs. Newman is an 42-year-old female. She was admitted secondary to irretractable nausea and vomiting with abdominal distention. At baseline she has renal cell carcinoma and is receiving radiation therapy for this. Workup showed she had ascites. Etiology for the ascites is likely cancer combined with radiation. She was treated with the paracentesis. 6.3 L of fluid were removed. Weakness has been present and working with PT. At this point she is stable enough for transition to home with home health and continuation of PT. She is medically stable for discharge home today. Pt Condition on Discharge: Stable Discharge Disposition: Disch w/ Home Health Serv Discharge Time: > 30 minutes Discharge Instructions DIET: Follow Instructions for: As Tolerated, No Restrictions Activities you can perform: Regular-No Restrictions Simone Campos MD May 06, 2017 10:20
[2017-05-06] MEDS: METOPROLOL SUCCINATE 50 MG EXTENDED RELEASE TAB PO SCH (10:43)
[2017-05-06] MEDS ORDERED: SODIUM CHLORIDE 0.9% FLUSH 10 ML FLUSH IV FLUSH PRN (12:45)
[2017-05-06] MEDS: CLOPIDOGREL 75 MG TAB PO SCH (13:23)
[2017-05-06] MEDS: ASPIRIN 81 MG CHEW TAB PO SCH (13:24)
== END 2017-05-06 13:55 | disposition home health service (06) | DRG 378 ==
LOC: HCIN 17:06 → OBSVTOIN 17:06 → INTOOBSV 17:06 → OBSVTOIN 21:14
PROVIDERS: ADMIT Hospitalist; ATTEND Hospitalist
PROC: 30233N1 Transfusion of Nonautologous Red Blood Cells into Peripheral Vein, Percutaneous Approach (ICD-10-PCS; 2017-05-02)
PROC: 0W9G3ZX Drainage of Peritoneal Cavity, Percutaneous Approach, Diagnostic (ICD-10-PCS; principal; 2017-05-03)
DX: K92.1 Melena (principal); R18.0 Malignant ascites; C77.8 Secondary and unspecified malignant neoplasm of lymph nodes of multiple regions; R06.09 Other forms of dyspnea; E86.0 Dehydration; N18.9 Chronic kidney disease, unspecified; I12.9 Hypertensive chronic kidney disease with stage 1 through stage 4 chronic kidney disease, or unspecified chronic kidney disease; I25.10 Atherosclerotic heart disease of native coronary artery without angina pectoris; D63.0 Anemia in neoplastic disease; D64.89 Other specified anemias; I44.7 Left bundle-branch block, unspecified; M19.90 Unspecified osteoarthritis, unspecified site; K21.9 Gastro-esophageal reflux disease without esophagitis; R05 Cough; G89.29 Other chronic pain; R31.9 Hematuria, unspecified; R30.0 Dysuria; I49.9 Cardiac arrhythmia, unspecified; R21 Rash and other nonspecific skin eruption; R20.0 Anesthesia of skin; E78.5 Hyperlipidemia, unspecified; D72.819 Decreased white blood cell count, unspecified; K57.90 Diverticulosis of intestine, part unspecified, without perforation or abscess without bleeding; Y84.2 Radiological procedure and radiotherapy as the cause of abnormal reaction of the patient, or of later complication, without mention of misadventure at the time of the procedure; Z96.651 Presence of right artificial knee joint; Z80.8 Family history of malignant neoplasm of other organs or systems; Z85.528 Personal history of other malignant neoplasm of kidney; Z90.710 Acquired absence of both cervix and uterus; Z90.5 Acquired absence of kidney; Z92.3 Personal history of irradiation; Z80.1 Family history of malignant neoplasm of trachea, bronchus and lung; Z95.5 Presence of coronary angioplasty implant and graft
CPT/HCPCS: 36430; 49083; 74176; 80048; 80053; 80076; 82042; 82150; 82945; 83615; 84157; 85007; 85014; 85018; 85025; 85027; 85610; 86850; 86900; 86901; 86920; 87070; 87205; 88112; 88305; 88341; 88342; 89051; C1729; J1642; J2405; J7030; P9016; P9047

== ENCOUNTER 2017-07-24 09:48 | Inpatient (IN) | payer MEDICARE, BC ==
[2017-07-24] VITALS (7 sets, daily range): BP systolic 105–157; BP diastolic 66–91; PULSE 56–89; RESP 15–20; TEMP 96.9–97.7; O2SAT 95–99
[~2017-07-24] VITALS: Ht 152.4 cm; Wt 55.0 kg
[~2017-07-24 09:48] MED LIST changes: -CEPH-460 PO; -CLON0.1T PO; -DICY20TA10 PO; -PRED10 PO; +WHEE1EAC TOPICAL
[2017-07-24] MEDS ORDERED: traMADol HCL 50 MG TAB PO ONE (10:30)
[2017-07-24 11:14] LABS: AUTOMATED NEUTROPHIL # 4.5 TH/MM3 (1.8-7.7); BASOPHIL % 0.2 % (0.0-2.0); EOSINOPHIL # 0.1 TH/MM3 (0-0.4); EOSINOPHIL % 0.8 % (0.0-4.0); HEMATOCRIT 41.3 % (35.0-46.0); HEMOGLOBIN 13.9 GM/DL (11.6-15.3); LYMPH % 20.3 % (9.0-44.0); LYMPHOCYTE # 1.3 TH/MM3 (1.0-4.8); MEAN CELL VOLUME 83.5 FL (80.0-100.0); MEAN CORPUSCULAR HGB CONC 33.6 % (32.0-36.0); MEAN PLATELET VOLUME 7.7 FL (7.0-11.0); MONO % 7.9 % (0.0-8.0); MONOCYTE # 0.5 TH/MM3 (0-0.9); NEUT % 70.8 % (16.0-70.0); PLATELET COUNT 180 TH/MM3 (150-450); RED BLOOD COUNT 4.94 MIL/MM3 (4.00-5.30); RED CELL DISTRIBUTION WIDTH 23.4 % (11.6-17.2); WHITE BLOOD COUNT 6.3 TH/MM3 (4.0-11.0)
--- NOTE | 2017-07-24 11:25 | RADRPT ---
EXAM DATE/TIME: 07/24/2017 10:55 [facility] COMPARISON: No previous studies available for comparison. INDICATIONS : Chest pains. MEDICAL HISTORY : Cardiovascular disease. Renal Cancer SURGICAL HISTORY : Ortho surgeries, [id number] ENCOUNTER: Initial ACUITY: 2 days PAIN SCORE: 6/10 LOCATION: Bilateral chest FINDINGS: A single view of the chest demonstrates the lungs to be symmetrically aerated without evidence of mas s, infiltrate or effusion. The cardiomediastinal contours are unremarkable. Osseous structures are intact. [id number] catheter tip in the right atrium. CONCLUSION: The lungs are clear. Getachew Cohen MD on July 24, 2017 at 11:23 Board Certified Radiologist. This report was verified electronically.
--- NOTE | 2017-07-24 11:26 | PD ---
HPI Chief Complaint: Pain: Acute or Chronic Time Seen by Provider: 10:28 Travel History International Travel<30 days: No Contact w/Intl Traveler<30days: No Traveled to known affect area: No History of Present Illness HPI This is a 82-year-old female with a history of renal cancer, who presents here today with complaints of pain under her left breast. Patient reports it is a tugging pain in it is under her left breast. She reports it radiates to her back. She denies any fevers, chills. She says it is also tender to touch. She denies any previous history of DVTs. She denies any history of metastatic disease to her lungs. She denies any true shortness of breath. There are no palpitations. PFSH Past Medical History Arthritis: Yes Asthma: No Autoimmune Disease: No Blood Disorders: No Anxiety: Yes Depression: No Heart Rhythm Problems: No Cancer: Yes (Kidney) Cardiovascular Problems: Yes (LEFT BBB) High Cholesterol: Yes Chemotherapy: Yes Chest Pain: No Congestive Heart Failure: No COPD: No Cerebrovascular Accident: No Diabetes: No Endocrine: No Gastrointestinal Disorders: Yes ( ACID REFLUX ) GERD: Yes Genitourinary: No Hepatitis: No Hiatal Hernia: No Hypertension: Yes Immune Disorder: No Implanted Vascular Access Dvce: Yes Kidney Stones: No Medical other: Yes (HIGH CHOLESTEROL, R CAROTID STENOSIS) Musculoskeletal: Yes ( OSTEOARTHRITIS, HX OF LOWER BACK SX 1999, R ROTATOR CUFF ) Neurologic: Yes (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, MINDY CARPAL TUNNEL) Psychiatric: Yes (CLAUSTROPHOBIC) Reproductive: No Respiratory: No Immunizations Current: Yes Migraines: No Radiation Therapy: Yes Renal Failure: No Seizures: No Sickle Cell Disease: No Sleep Apnea: No Thyroid Disease: No Ulcer: No Past Surgical History Abdominal Surgery: Yes (CHOLECYSTECTOMY;) AICD: No Appendectomy: Yes Arteriovenous Shunt: No Body Medical Devices: 1 SCREW LEFT ANKLE Cardiac Surgery: Yes (cardiac stents) Cholecystectomy: Yes Ear Surgery: No Endocrine Surgery: No Eye Surgery: Yes (R EYE CATARACT SURGERY 2012) Genitourinary Surgery: No Gynecologic Surgery: Yes (1979 ABDOMINAL HYSTERECTOMY) Insulin Pump: No Joint Replacement: Yes (RIGHT KNEE) Oral Surgery: Yes (TONSILLECTOMY 1943) Pacemaker: No Thoracic Surgery: No Other Surgery: Yes Social History Alcohol Use: No Tobacco Use: No Substance Use: No Allergies-Medications (Allergen,Severity, Reaction): Coded Allergies: doxycycline (Unverified Allergy, Severe, BURNING ABD SWELLING THROAT, 07/24) minocycline (Unverified Allergy, Severe, BURNING ABD SWELLING THROAT, 07/24) tigecycline (Unverified Allergy, Severe, BURNING ABD SWELLING THROAT, 07/24) Sulfa (Sulfonamide Antibiotics) (Unverified Allergy, Mild, PT NOT SURE, ) PATIENT STATES THAT SHE WAS ON FOR 4 WEEKS AND HAD TO QUIT D/T SICK TO STOMACH morphine (Unverified Adverse Reaction, Severe, 07/24/17) HYPERACTIVE AND CAN'T EAT ANY FOOD Reported Meds & Prescriptions Reported Meds & Active Scripts Active Wheelchair 1 Each Each Unit TOPICAL DAILY PRN Reported Colace (Docusate Sodium) 100 Mg Capsule 100 Mg PO BID Magic Mouthwash Adult Liq (Multi-Ingredient Mouthwash/Gargle) 120 Ml Susp 5 Ml SWISH-SWAL ACHS Each 5mL contains: Nystatin 200,000units, Diphenhydramine 4.25mg, Viscous Lidocaine 10mg, Childress syrup 0.8 mL Pantoprazole (Pantoprazole Sodium) 40 Mg Tab 40 Mg PO DAILY Megestrol ES Liq 625 Mg/5 Ml Susp 10 Ml PO DAILY Cabometyx (Cabozantinib S-Malate) 60 Mg Tablet Unknown Dose PO DAILY Metoprolol Tartrate 50 Mg Tab 50 Mg PO BID Review of Systems Except as stated in HPI: all other systems reviewed are Neg General / Constitutional: No: Fever, Chills HENT: No: Headaches, Lightheadedness Cardiovascular: Positive: Chest Pain or Discomfort (Pain under left breast), No : Palpitations Respiratory: Positive: Pleuritic Pain, No: Cough, Shortness of Breath Gastrointestinal: No: Nausea, Vomiting, Abdominal Pain Genitourinary: No: Frequency, Dysuria Musculoskeletal: No: Weakness, Pain Skin: No Lesions Neurologic: No: Weakness, Syncope, Headache Physical Exam Narrative GENERAL: Well-developed well-nourished female in no acute respiratory distress. SKIN: Focused skin assessment warm/dry. In the presence of the nurse, on examination under the patient's left breast, there is a rash that consistent with possible Sarah. It is tender to the touch under her left rib. She reports is also deeper discomfort. HEAD: Atraumatic. Normocephalic. EYES: Pupils equal and round. No scleral icterus. No injection or drainage. ENT: No nasal bleeding or discharge. Mucous membranes pink and moist. NECK: Trachea midline. No JVD. CARDIOVASCULAR: Regular rate and rhythm. No murmur appreciated. RESPIRATORY: No accessory muscle use. Clear to auscultation. Breath sounds equal bilaterally. GASTROINTESTINAL: Abdomen soft, non-tender, nondistended. On examination NEUROLOGICAL: Awake and alert. No obvious cranial nerve deficits. Motor grossly within normal limits. Normal speech. Data Data Last Documented VS Vital Signs Date Time Temp Pulse Resp B/P (MAP) Pulse Ox O2 Delivery O2 Flow Rate FiO2 07/24/17 12:30 84 15 138/73 (94) 97 Room Air 07/24/17 10:02 97.4 Orders Orders Electrocardiogram (07/24/17 10:28) Complete Blood Count With Diff (07/24/17 10:28) Comprehensive Metabolic Panel (07/24/17 10:28) Ckmb (Isoenzyme) Profile (07/24/17 10:28) Troponin I (07/24/17 10:28) Chest, Single Ap (07/24/17 10:28) Iv Access Insert/Monitor (07/24/17 10:28) Ecg Monitoring (07/24/17 10:28) Oximetry (07/24/17 10:28) Ventilation & Perfusion Scan (07/24/17 ) Tramadol (Ultram) (07/24/17 10:30) Sodium Chlorid 0.9% 500 Ml Inj (Ns 500 M (07/24/17 13:45) Ondansetron Inj (Zofran Inj) (07/24/17 14:00) Sodium Chlor 0.9% 1000 Ml Inj (Ns 1000 M (07/24/17 15:00) Hydromorphone Pf Inj (Dilaudid Pf Inj) (07/24/17 15:00) Admit Order (Ed Use Only) (07/24/17 15:30) Labs Laboratory Tests Test 07/24/17 10:39 White Blood Count 6.3 TH/MM3 Red Blood Count 4.94 MIL/MM3 Hemoglobin 13.9 GM/DL Hematocrit 41.3 % Mean Corpuscular Volume 83.5 FL Mean Corpuscular Hemoglobin 28.0 PG Mean Corpuscular Hemoglobin Concent 33.6 % Red Cell Distribution Width 23.4 % Platelet Count 180 TH/MM3 Mean Platelet Volume 7.7 FL Neutrophils (%) (Auto) 70.8 % Lymphocytes (%) (Auto) 20.3 % Monocytes (%) (Auto) 7.9 % Eosinophils (%) (Auto) 0.8 % Basophils (%) (Auto) 0.2 % Neutrophils # (Auto) 4.5 TH/MM3 Lymphocytes # (Auto) 1.3 TH/MM3 Monocytes # (Auto) 0.5 TH/MM3 Eosinophils # (Auto) 0.1 TH/MM3 Basophils # (Auto) 0.0 TH/MM3 CBC Comment DIFF FINAL Differential Comment Blood Urea Nitrogen 17 MG/DL Creatinine 0.84 MG/DL Random Glucose 84 MG/DL Total Protein 5.7 GM/DL Albumin 2.6 GM/DL Calcium Level 8.7 MG/DL Alkaline Phosphatase 124 U/L Aspartate Amino Transf (AST/SGOT) 63 U/L Alanine Aminotransferase (ALT/SGPT) 36 U/L Total Bilirubin 1.2 MG/DL Sodium Level 136 MEQ/L Potassium Level 3.9 MEQ/L Chloride Level 104 MEQ/L Carbon Dioxide Level 19.8 MEQ/L Anion Gap 12 MEQ/L Estimat Glomerular Filtration Rate 65 ML/MIN Total Creatine Kinase 78 U/L Troponin I 0.02 NG/ML MDM Medical Decision Making Medical Screen Exam Complete: Yes Emergency Medical Condition: Yes Differential Diagnosis Pulmonary embolism versus candidiasis versus ACS versus pneumonia Narrative Course This is an 82-year-old female with a history of renal cancer, presents today with complaints of pain under her left breast. Patient states is worse with movement and respiration. The patient does have a area of redness under her left breast. There is some tenderness to touch in her left chest wall cavity. Patient is allergic to contrast material secondary to having a single kidney. A VQ scan was ordered. VQ scan shows evidence of a pulmonary embolism. Patient will be admitted to the medicine service. Case was discussed with Dr. Gigi Campos who agrees for the admission. She will be placed on anticoagulation by Dr. Campos. She has been given a fluid bolus and has been started on normal saline. Diagnosis Primary Impression: Pulmonary embolism Additional Impressions: Weakness Renal cell carcinoma Admitting Information Admitting Physician Requests: Admit Kan Aviles MD Jul 24, 2017 11:26
[2017-07-24 11:30] LABS: ALBUMIN 2.6 GM/DL (3.4-5.0); ALT (GPT) 36 U/L (10-53); AST (GOT) 63 U/L (15-37); BICARBONATE 19.8 MEQ/L (21.0-32.0); BLOOD UREA NITROGEN 17 MG/DL (7-18); CALCIUM 8.7 MG/DL (8.5-10.1); CHLORIDE 104 MEQ/L (98-107); CREATININE 0.84 MG/DL (0.50-1.00); GLOMERULAR FILTRATION RATE 65 ML/MIN (>89); GLUCOSE,RANDOM 84 MG/DL (74-106); SODIUM (NA) 136 MEQ/L (136-145)
[2017-07-24 11:34] LABS: ALKALINE PHOSPHATASE 124 U/L (45-117); TOTAL BILIRUBIN ADULT 1.2 MG/DL (0.2-1.0); TOTAL PROTEIN 5.7 GM/DL (6.4-8.2); TROPONIN I 0.02 NG/ML (0.02-0.05)
[2017-07-24] MEDS ORDERED: SODIUM CHLORID 0.9% 500 ML INJ 500 ML IV ONE (13:45)
[2017-07-24] MEDS ORDERED: ONDANSETRON HCL 4 MG/2 ML VIAL IV PUSH ONE (14:00)
--- NOTE | 2017-07-24 14:30 | RADRPT ---
EXAM DATE/TIME: 07/24/2017 11:28 [facility] COMPARISON: CHEST SINGLE AP, July 24, 2017, 10:55. INDICATIONS : Embolus. Chest pain. DOSE: 0.85 mCi Tc99m DTPA 8.8 mCi Tc99m MAA MEDICAL HISTORY : Metastatic, kidney. Renal cell carcinoma. Hypertension. SURGICAL HISTORY : Nephrectomy, left. Hysterectomy. Cholecystectomy. ENCOUNTER: Initial ACUITY: 1 day PAIN SCALE: 0/10 LOCATION: Bilateral chest TECHNIQUE: Following five minutes of tidal breathing of DTPA aerosol, planar images of the lungs were performed in eight projections. The patient was then injected with MAA, and eight-view perfusion scan was perf ormed. FINDINGS: There is a mildly heterogeneous pattern of aerosol delivery to the periphery of both lungs. No focal ventilatory defects are seen. The perfusion lung scan demonstrates a prominent perfusion defect which demonstrate intact perfusion. As is located posterior lateral left lower lung and is seen on 5 views. The size of the lesion sug gests greater than one segment, but less than 2 segment. CONCLUSION: Intermediate probability pulmonary embolus. Getachew Cohen MD on July 24, 2017 at 14:26 Board Certified Radiologist. This report was verified electronically.
[2017-07-24] MEDS ORDERED: HYDROmorphone HCL PF 2 MG/ML VIAL IVS ONE (15:00)
[2017-07-24] MEDS: SODIUM CHLOR 0.9% 1000 ML INJ 1,000 ML IV SCH (15:15)
[2017-07-24] MEDS ORDERED: CABO60TA PO (15:25)
[2017-07-24] MEDS ORDERED: MEGE1SUS10 PO (15:25)
[2017-07-24] MEDS ORDERED: MAGICADU2 SWISH-SWAL (15:25)
[2017-07-24] MEDS ORDERED: PANT40TA3 PO (15:25)
[2017-07-24] MEDS ORDERED: COLA100C5 PO (16:52)
[2017-07-24] MEDS ORDERED: BISACODYL 10 MG SUPP RECTAL PRN (17:15)
[2017-07-24] MEDS ORDERED: NALOXONE HCL 0.4 MG/ML AMP IV PUSH PRN (17:15)
[2017-07-24] MEDS ORDERED: SODIUM CHLORIDE 0.9% FLUSH 10 ML FLUSH IV FLUSH PRN (17:15)
[2017-07-24] MEDS ORDERED: SENNOSIDES 8.6 MG TAB PO PRN (17:15)
--- NOTE | 2017-07-24 17:37 | HHI.HP ---
[facility] Gayatri De Souza MD Admission Diagnosis Pulmonary embolus, renal cancer, Diagnoses: (1) Pulmonary embolism (2) Renal cell carcinoma Travel History International Travel<30 Days: No Contact w/Intl Traveler <30 Da: No Traveled to Known Affected Are: No History of Present Illness 82-year-old female with a history of renal cell carcinoma presents to the ER today after onset of pleuritic pain and shortness of breath. ER workup revealed pulmonary embolisms. She denies any recent lower extremity edema or calf pain. She has been undergoing p.o. chemotherapy for her renal cell carcinoma. 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 During her paracentesis treatments she had excessive bleeding. Her risk of bleeding required that she stop Plavix 2 months ago and more recently she stopped aspirin (1 month ago). Her chief complaint at this time is pain during deep inspiration and general pain with radiation to her left back. Her pain has been difficult to control due to sensitivity to narcotics causing nausea for most that are given. She was recently able to tolerate a small dose of Dilaudid. She points out a rash , under her left breast, which is smooth and pink. Her oncologist is Dr. Yousif Jones. Review of Systems Constitutional: DENIES: Fatigue, Fever, Weight gain, Weight loss Eyes: DENIES: Blurred vision, Diplopia, Eye pain, Vision loss Cardiovascular: COMPLAINS OF: Chest pain, Dyspnea on Exertion, DENIES: Palpitations, Syncope, Lower Extremity Edema Gastrointestinal: COMPLAINS OF: Nausea, DENIES: Abdominal pain, Black stools, Bloody stools, Constipation, Diarrhea Neurologic: DENIES: Abnormal gait, Headache, Localized weakness, Paresthesias, Seizures Psychiatric: DENIES: Anxiety, Confusion, Mood changes, Depression Past Family Social History Past Medical History Coronary artery disease, hypertension, dyslipidemia, stent placement 2 in 2015 , shingles 2013 Past Surgical History Right knee replacement, cholecystectomy, hysterectomy, right shoulder surgery Allergies: Coded Allergies: doxycycline (Unverified Allergy, Severe, BURNING ABD SWELLING THROAT, 07/24) minocycline (Unverified Allergy, Severe, BURNING ABD SWELLING THROAT, 07/24) tigecycline (Unverified Allergy, Severe, BURNING ABD SWELLING THROAT, 07/24) Sulfa (Sulfonamide Antibiotics) (Unverified Allergy, Mild, PT NOT SURE, ) PATIENT STATES THAT SHE WAS ON FOR 4 WEEKS AND HAD TO QUIT D/T SICK TO STOMACH morphine (Unverified Adverse Reaction, Severe, 07/24/17) HYPERACTIVE AND CAN'T EAT ANY FOOD Family History Sister had lung cancer with metastasis to the brain Social History Denies smoking, denies drinking alcohol Physical Exam Vital Signs Vital Signs Date Time Temp Pulse Resp B/P (MAP) Pulse Ox O2 Delivery O2 Flow Rate FiO2 07/24/17 17:01 96.9 89 18 143/88 (106) 95 07/24/17 16:19 88 22 105/67 (80) 97 07/24/17 12:30 84 15 138/73 (94) 97 Room Air 07/24/17 12:00 56 15 157/91 (113) 95 07/24/17 10:21 84 15 152/80 (104) 99 Room Air 07/24/17 10:02 97.4 82 20 134/66 (88) 99 Physical Exam GENERAL: Elderly, well-developed patient, in pain, weak, no respiratory distress SKIN: 1.5 x 5 cm rest that is smooth shiny and pink under left breast HEAD: Atraumatic. Normocephalic. No temporal or scalp tenderness. EYES: Pupils equal round and reactive. Extraocular motions intact. No scleral icterus. No injection or drainage. ENT: Nose without bleeding, purulent drainage or septal hematoma. Throat without erythema, tonsillar hypertrophy or exudate. Mouth is dry, tongue is denuded NECK: Trachea midline. No JVD or lymphadenopathy. Supple, nontender, no meningeal signs. CARDIOVASCULAR: Regular rate and rhythm without murmurs, gallops, or rubs. RESPIRATORY: Clear to auscultation. Breath sounds equal bilaterally. No wheezes , rales, or rhonchi. GASTROINTESTINAL: Abdomen soft, non-tender, nondistended. No hepato-splenomegaly , or palpable masses. No guarding. MUSCULOSKELETAL: Extremities without clubbing, cyanosis, or edema. No joint tenderness, effusion, or edema noted. No calf tenderness. Negative Homans sign bilaterally. NEUROLOGICAL: Awake and alert. Cranial nerves II through XII intact. Motor and sensory grossly within normal limits. Five out of 5 muscle strength in all muscle groups. Normal speech. Laboratory Laboratory Tests Test 07/24/17 10:39 White Blood Count 6.3 Red Blood Count 4.94 Hemoglobin 13.9 Hematocrit 41.3 Mean Corpuscular Volume 83.5 Mean Corpuscular Hemoglobin 28.0 Mean Corpuscular Hemoglobin Concent 33.6 Red Cell Distribution Width 23.4 Platelet Count 180 Mean Platelet Volume 7.7 Neutrophils (%) (Auto) 70.8 Lymphocytes (%) (Auto) 20.3 Monocytes (%) (Auto) 7.9 Eosinophils (%) (Auto) 0.8 Basophils (%) (Auto) 0.2 Neutrophils # (Auto) 4.5 Lymphocytes # (Auto) 1.3 Monocytes # (Auto) 0.5 Eosinophils # (Auto) 0.1 Basophils # (Auto) 0.0 CBC Comment DIFF FINAL Differential Comment Blood Urea Nitrogen 17 Creatinine 0.84 Random Glucose 84 Total Protein 5.7 Albumin 2.6 Calcium Level 8.7 Alkaline Phosphatase 124 Aspartate Amino Transf (AST/SGOT) 63 Alanine Aminotransferase (ALT/SGPT) 36 Total Bilirubin 1.2 Sodium Level 136 Potassium Level 3.9 Chloride Level 104 Carbon Dioxide Level 19.8 Anion Gap 12 Estimat Glomerular Filtration Rate 65 Total Creatine Kinase 78 Troponin I 0.02 Result Diagram: 07/24/17 1039 07/24/17 1039 Caprini VTE Risk Assessment Caprini VTE Risk Assessment: Mod/High Risk (score >= 2) Caprini Risk Assessment Model Point Value = 1 Point Value = 2 Point Value = 3 Point Value = 5 Age 41-60 Minor surgery BMI > 25 kg/m2 Swollen legs Varicose veins or History of unexplained or recurrent spontaneous Oral contraceptives or hormone replacement Sepsis (< 1 month) Serious lung disease, including pneumonia (< 1 month) Abnormal pulmonary function Acute myocardial infarction Congestive heart failure (< 1 month) History of inflammatory bowel disease Medical patient at bed rest Age 61-74 Arthroscopic surgery Major open surgery (> 45 min) Laparoscopic surgery (> 45 min) Malignancy Confined to bed (> 72 hours) Immobilizing plaster cast Central venous access Age >= 75 History of VTE Family history of VTE Factor V Leiden Prothrombin [id number] Lupus anticoagulant Anticardiolipin antibodies Elevated serum homocysteine Heparin-induced thrombocytopenia Other congenital or acquired thrombophilia Stroke (< 1 month) Elective arthroplasty Hip, pelvis, or leg fracture Acute spinal cord injury (< 1 month) Prophylaxis Regimen Total Risk Factor Score Risk Level Prophylaxis Regimen 0-1 Low Early ambulation 2 Moderate Order ONE of the following: *Sequential Compression Device (SCD) *Heparin 5000 units SQ BID 3-4 Higher Order ONE of the following medications: *Heparin 5000 units SQ TID *Enoxaparin/Lovenox 40 mg SQ daily (WT < 150 kg, CrCl > 30 mL/min) *Enoxaparin/Lovenox 30 mg SQ daily (WT < 150 kg, CrCl > 10-29 mL/min) *Enoxaparin/Lovenox 30 mg SQ BID (WT < 150 kg, CrCl > 30 mL/min) AND/OR *Sequential Compression Device (SCD) 5 or more Highest Order ONE of the following medications: *Heparin 5000 units SQ TID (Preferred with Epidurals) *Enoxaparin/Lovenox 40 mg SQ daily (WT < 150 kg, CrCl > 30 mL/min) *Enoxaparin/Lovenox 30 mg SQ daily (WT < 150 kg, CrCl > 10-29 mL/min) *Enoxaparin/Lovenox 30 mg SQ BID (WT < 150 kg, CrCl > 30 mL/min) AND *Sequential Compression Device (SCD) Assessment and Plan Problem List: (1) Pulmonary embolism ICD Code: I26.99 - Other pulmonary embolism without acute cor pulmonale (2) Renal cell carcinoma ICD Code: C64.9 - Malignant neoplasm of unspecified kidney, except renal pelvis Assessment and Plan Pulmonary embolism High suspicion clinically, verified by VQ scan Doppler study of lower extremities pending Patient started on heparin drip Pain controlled with IV Dilaudid Avoiding NSAIDs due to nephrotoxicity Oncology consulted to assist with selection of oral options for treatment Renal cell carcinoma Ongoing treatment with p.o. 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 In the case of services not specified as inpatient-only, they are appropriately provided as inpatient services in accordance with the 2-midnight benchmark. Estimated LOS (days): 3 days is the estimated time the patient will need to remain in the hospital, assuming treatment plan goals are met and no additional complications. Post-Hospital Plan: Home Health Real Campos MD Jul 24, 2017 17:37
[2017-07-24] MEDS: NYSTAT/DIPHENHY/LIDO MOUTHWASH (Adult) 120ML SWISH-SWAL SCH ×2 (18:00→19:59)
[2017-07-24] MEDS: HYDROmorphone HCL PF 0.5 MG/0.5 ML SYRINGE IV PUSH PRN ×2 (19:54→23:57)
[2017-07-24] MEDS: BETAMETHASONE/CLOTRIMAZOLE CREAM 15 GM TOPICAL SCH (19:55)
[2017-07-24] MEDS: SODIUM CHLORIDE 0.9% FLUSH 10 ML FLUSH IV FLUSH SCH (19:59)
--- NOTE | 2017-07-24 20:33 | EKG ---
Date Performed: 07/24/2017 Time Performed: 10:51:48 PTAGE: 82 years EKG: Sinus rhythm MARKED LEFT AXIS DEVIATION LEFT BUNDLE BRANCH BLOCK ABNORMAL ECG PREVIOUS TRACING : 10/13/2014 11.01 Since the previous tracing, no significant change noted DOCTOR: Santiago Escobedo Interpretating Date/Time 07/24/2017 20:31:29
[2017-07-24] MEDS: HEPARIN-D5W 25,000 U/250 ML 250 ML IV PRN (22:54)
[2017-07-25] VITALS: BP 126/69; PULSE 95; RESP 18; TEMP 97.3; O2SAT 96
[2017-07-25] MEDS: SODIUM CHLOR 0.9% 1000 ML INJ 1,000 ML IV SCH ×3 (01:00→20:36)
[2017-07-25] MEDS: HYDROmorphone HCL PF 0.5 MG/0.5 ML SYRINGE IV PUSH PRN ×4 (04:20→16:48)
[2017-07-25 04:48] LABS: AUTOMATED NEUTROPHIL # 4.5 TH/MM3 (1.8-7.7); BASOPHIL % 0.3 % (0.0-2.0); EOSINOPHIL % 0.4 % (0.0-4.0); HEMATOCRIT 36.5 % (35.0-46.0); HEMOGLOBIN 12.2 GM/DL (11.6-15.3); LYMPH % 22.1 % (9.0-44.0); LYMPHOCYTE # 1.4 TH/MM3 (1.0-4.8); MEAN CELL VOLUME 84.1 FL (80.0-100.0); MEAN CORPUSCULAR HGB CONC 33.4 % (32.0-36.0); MEAN PLATELET VOLUME 7.7 FL (7.0-11.0); MONOCYTE # 0.5 TH/MM3 (0-0.9); NEUT % 69.2 % (16.0-70.0); PLATELET COUNT 160 TH/MM3 (150-450); RED BLOOD COUNT 4.34 MIL/MM3 (4.00-5.30); RED CELL DISTRIBUTION WIDTH 23.5 % (11.6-17.2); WHITE BLOOD COUNT 6.5 TH/MM3 (4.0-11.0)
[2017-07-25 05:17] LABS: BICARBONATE 19.4 MEQ/L (21.0-32.0); CREATININE 0.69 MG/DL (0.50-1.00)
[2017-07-25 08:06] VITALS: BP 146/67; PULSE 99; RESP 16; TEMP 97.3; O2SAT 95
[2017-07-25] MEDS: NYSTAT/DIPHENHY/LIDO MOUTHWASH (Adult) 120ML SWISH-SWAL SCH ×4 (09:00→22:21)
[2017-07-25] MEDS: BETAMETHASONE/CLOTRIMAZOLE CREAM 15 GM TOPICAL SCH ×2 (09:00→21:00)
[2017-07-25] MEDS: SODIUM CHLORIDE 0.9% FLUSH 10 ML FLUSH IV FLUSH SCH ×2 (09:00→21:00)
[2017-07-25 12:00] VITALS: BP 169/85; PULSE 103; RESP 18; TEMP 98; O2SAT 95
[2017-07-25] MEDS ORDERED: IODIXANOL 320 MG/ML 10 ML VIAL (for Rad CT) IVCONTRAST ONE (12:05)
--- NOTE | 2017-07-25 12:20 | RADRPT ---
EXAM DATE/TIME: 07/25/2017 11:51 [facility] COMPARISON: No previous studies available for comparison. INDICATIONS : Left lower chest pain. IV CONTRAST: 43 cc Visipaque (iodixanol) IV RADIATION DOSE: 19.6 CTDIvol (mGy) MEDICAL HISTORY : Cardiovascular disease. Hypertension. Renal cell carcinoma. SURGICAL HISTORY : Hysterectomy. Nephrectomy, left. ENCOUNTER: Initial ACUITY: 4 - 6 days PAIN SCALE: 8/10 LOCATION: Left lower chest TECHNIQUE: Volumetric scanning of the chest was performed using a pulmonary embolism protocol MIP images were re constructed. Using automated exposure control and adjustment of the mA and/or kV according to patien t size, radiation dose was kept as low as reasonably achievable to obtain optimal diagnostic quality images. DICOM format image data is available electronically for review and comparison. Follow-up recommendations for detected pulmonary nodules are based at a minimum on nodule size and pa tient risk factors according to Fleischner Society Guidelines. FINDINGS: PULMONARY ARTERIES: Multiple filling defects are noted in the distal right main pulmonary artery extending into multiple posterior lower lobe pulmonary arteries. There is milder thrombus in the left lower lobe pulmonary ar teries. The main pulmonary artery is patent. LUNGS: There is no pneumothorax . There is patchy infiltrate in the right lower lobe. There is focal consoli dation a small portion of the lingula and left upper lobe. No concerning pulmonary nodule is visualiz ed. PLEURAE: There is small bilateral pleural effusions. MEDIASTINUM: There is good visualization of the great vessels of the middle mediastinum. No evidence of mediastin al or hilar adenopathy/mass. MUSCULOSKELETAL: Within normal limits for patient age. MISCELLANEOUS: The visualized upper abdominal organs demonstrate no acute abnormality. CONCLUSION: 1. Bilateral pulmonary emboli. 2. Multiple areas of consolidation. 3. Small pleural effusion. 4. Moderate amount of ascites in the upper abdomen. Graham Roche MD on July 25, 2017 at 12:10 Board Certified Radiologist. This report was verified electronically.
--- NOTE | 2017-07-25 14:17 | RADRPT ---
EXAM DATE/TIME: 07/25/2017 10:47 [facility] COMPARISON: No previous studies available for comparison. INDICATIONS : Bilateral leg swelling. MEDICAL HISTORY : Hypercholesterolemia. Hypertension. Gastroesophageal reflux disease. Hyperlipidemia. Arthritis. Chemo therapy. Renal cancer. SURGICAL HISTORY : Appendectomy. Cholecystectomy. Hysterectomy. Nephrectomy. Bilateral knee arthroscopy. ENCOUNTER: Initial ACUITY: 1 day PAIN SCORE: 3/10 LOCATION: Bilateral legs. TECHNIQUE: Venous ultrasound of the left and right leg was performed from the inguinal ligament to the proximal calf. Real-time, color Doppler and spectral tracing, compression and augmentation techniques were us ed. FINDINGS: RIGHT LEG: There is occlusive thrombus in the central posterior tibial vein and peroneal vein. There is normal c ompressibility of the deep venous system from the inguinal region to the popliteal vein. No echogeni c clot is seen in the lumen of the common femoral, femoral, popliteal. There is a normal response of the venous system to proximal and distal augmentation and respiration. LEFT LEG: There is partially occlusive thrombus in the left popliteal vein. There is normal compressibility of the deep venous system from the inguinal region to the proximal calf. No echogenic clot is seen in t he lumen of the common femoral, femoral, and posterior tibial veins. There is a normal response of t he venous system to proximal and distal augmentation and respiration. CONCLUSION: 1. Occlusive right calf vein DVT. 2. Partially occlusive left popliteal vein DVT, likely chronic. Jin Lara MD on July 25, 2017 at 13:37 Board Certified Radiologist. This report was verified electronically.
[2017-07-25 16:00] VITALS: BP 173/82; PULSE 94; RESP 16; TEMP 97.7; O2SAT 96
[2017-07-25 20:00] VITALS: BP 186/86; PULSE 120; RESP 18; TEMP 97.5; O2SAT 96
[2017-07-25] MEDS: METOPROLOL TARTRATE 50 MG TAB PO SCH (22:20)
--- NOTE | 2017-07-25 23:23 | HHI.PR ---
Subjective Remarks Patient seen this afternoon. She says that pleuritic chest pain continues, however improving.she reports last bowel movement was 4 days ago. Objective Vital Signs Date Time Temp Pulse Resp B/P (MAP) Pulse Ox O2 Delivery O2 Flow Rate FiO2 07/25/17 20:00 97.5 120 18 186/86 (119) 96 07/25/17 16:00 97.7 94 16 173/82 (112) 96 07/25/17 12:00 98.0 103 18 169/85 (113) 95 07/25/17 08:06 97.3 99 16 146/67 (93) 95 07/25/17 06:44 20 07/25/17 00:00 97.3 95 18 126/69 (88) 96 I/O 07/25/17 07/25/17 07/25/17 07/26/17 07/26/17 07/26/17 07:00 15:00 23:00 07:00 15:00 23:00 Intake Total 1000 ml 1020 ml Balance 1000 ml 1020 ml Intake Oral 1020 ml IV Total 1000 ml # Voids 3 # Bowel Movements 0 Result Diagram: 07/25/170 07/25/17 0410 Objective Remarks GENERAL: patient sitting up in bed. Appears uncomfortable breathing. SKIN: Warm and dry. HEAD: Normocephalic. EYES: No scleral icterus. No injection or drainage. NECK: Supple, trachea midline. No JVD. CARDIOVASCULAR: Regular rate and rhythm without murmurs, gallops, or rubs. RESPIRATORY: Breath sounds equal bilaterally. No accessory muscle use. GASTROINTESTINAL: Abdomen soft, non-tender, nondistended. MUSCULOSKELETAL: No cyanosis, or edema. BACK: Nontender without obvious deformity. No CVA tenderness. A/P Assessment and Plan Pulmonary embolism High suspicion clinically, verified by VQ scan Doppler study of lower extremities pending Patient started on heparin drip Pain controlled with IV Dilaudid Avoiding NSAIDs due to nephrotoxicity Oncology consulted to assist with selection of oral options for treatment = Due to cancer, the possibility of lifelong treatment without an actual diagnosis of pulmonary embolism, went ahead and ordered CT pulmonary angiogram this morning which is positive for PE. Follow-up oncology recommendations. Continue heparin drip.start Levaquin for possiblepneumonia on CT Renal cell carcinoma Ongoing treatment with p.o. 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 Continue to monitor. Constipation. Laxatives ordered. Stomatitis Patient requested Magic mouthwash, as needed Dermatomycosis Tender pink rash under left breast Begin Lotrisone topically Hypertension Continue home meds = Restart metoprolol. DVT prophylaxis Heparin Zane Jain MD July 25, 2017 23:23
[2017-07-25] MEDS ORDERED: DOCUSATE SODIUM 50 MG/SENNA 8.6 MG TAB PO ONE (23:30)
[2017-07-25] MEDS ORDERED: cloNIDine HCL 0.1 MG TAB PO PRN (23:30)
[2017-07-25] MEDS ORDERED: MAGNESIUM HYDROXIDE SUSP 30 ML CUP PO ONE (23:30)
[2017-07-26] VITALS (7 sets, daily range): BP systolic 123–160; BP diastolic 59–93; PULSE 79–109; RESP 15–18; TEMP 97.3–98.1; O2SAT 93–96
[2017-07-26] MEDS: HYDROmorphone HCL PF 0.5 MG/0.5 ML SYRINGE IV PUSH PRN ×5 (01:10→22:40)
[2017-07-26] MEDS: LEVOFLOXACIN 500 MG TAB PO SCH ×2 (01:10→07:50)
[2017-07-26 03:15] LABS: BASOPHIL % 0.5 % (0.0-2.0); EOSINOPHIL % 0.7 % (0.0-4.0); HEMATOCRIT 34.6 % (35.0-46.0); HEMOGLOBIN 11.8 GM/DL (11.6-15.3); LYMPH % 17.7 % (9.0-44.0); MEAN CELL VOLUME 84.3 FL (80.0-100.0); MEAN CORPUSCULAR HEMOGLOBIN 28.9 PG (27.0-34.0); MEAN CORPUSCULAR HGB CONC 34.2 % (32.0-36.0); MEAN PLATELET VOLUME 7.5 FL (7.0-11.0); MONO % 8.5 % (0.0-8.0); MONOCYTE # 0.5 TH/MM3 (0-0.9); NEUT % 72.6 % (16.0-70.0); PLATELET COUNT 161 TH/MM3 (150-450); RED CELL DISTRIBUTION WIDTH 22.8 % (11.6-17.2); WHITE BLOOD COUNT 5.6 TH/MM3 (4.0-11.0)
[2017-07-26 03:37] LABS: BICARBONATE 23.5 MEQ/L (21.0-32.0); CALCIUM 8.1 MG/DL (8.5-10.1); CREATININE 0.95 MG/DL (0.50-1.00); DIRECT BILIRUBIN ADULT 0.2 MG/DL (0.0-0.2); INDIRECT BILIRUBIN 0.6 MG/DL (0.0-0.8); MAGNESIUM 1.5 MG/DL (1.5-2.5); TOTAL BILIRUBIN ADULT 0.8 MG/DL (0.2-1.0); TOTAL PROTEIN 4.9 GM/DL (6.4-8.2)
[2017-07-26] MEDS: HEPARIN-D5W 25,000 U/250 ML 250 ML IV PRN (05:16)
[2017-07-26] MEDS: SODIUM CHLOR 0.9% 1000 ML INJ 1,000 ML IV SCH ×3 (05:35→17:18)
[2017-07-26] MEDS: DOCUSATE SODIUM 50 MG/SENNA 8.6 MG TAB PO SCH ×2 (07:51→19:50)
[2017-07-26] MEDS: SODIUM CHLORIDE 0.9% FLUSH 10 ML FLUSH IV FLUSH SCH ×2 (07:51→19:50)
[2017-07-26] MEDS: METOPROLOL TARTRATE 50 MG TAB PO SCH ×2 (07:54→19:51)
[2017-07-26] MEDS: BETAMETHASONE/CLOTRIMAZOLE CREAM 15 GM TOPICAL SCH ×2 (07:55→19:51)
[2017-07-26] MEDS: NYSTAT/DIPHENHY/LIDO MOUTHWASH (Adult) 120ML SWISH-SWAL SCH ×4 (08:02→19:51)
[2017-07-26] MEDS ORDERED: APIXABAN 5 MG TABLET PO SCH (10:15)
--- NOTE | 2017-07-26 14:40 | PD.ONC.PN ---
Subjective Subjective Remarks Afebrile Pt reports she still has a significant amt of pain in her ribs when moving or deep breathing No bleeding or oozing gums Wants to know if she should be taking her medication for her renal cell carcinoma Objective Data Date Time Temp Pulse Resp B/P (MAP) Pulse Ox O2 Delivery O2 Flow Rate FiO2 07/26/17 12:00 97.3 79 16 123/62 (82) 95 07/26/17 08:01 91 07/26/17 04:00 98.1 92 18 136/70 (92) 93 07/26/17 00:00 97.7 99 18 160/93 (115) 96 07/25/17 20:00 97.5 120 18 186/86 (119) 96 07/25/17 16:00 97.7 94 16 173/82 (112) 96 07/26/17 07/26/17 07/26/17 07:00 15:00 23:00 Intake Total 1000 ml Balance 1000 ml Result Diagram: 07/26/17 0303 07/26/17 0303 Laboratory Results Laboratory Tests Test 07/25/17 21:04 07/26/17 03:03 Activated Partial Thromboplast Time 60.8 SEC 51.6 SEC White Blood Count 5.6 TH/MM3 Red Blood Count 4.10 MIL/MM3 Hemoglobin 11.8 GM/DL Hematocrit 34.6 % Mean Corpuscular Volume 84.3 FL Mean Corpuscular Hemoglobin 28.9 PG Mean Corpuscular Hemoglobin Concent 34.2 % Red Cell Distribution Width 22.8 % Platelet Count 161 TH/MM3 Mean Platelet Volume 7.5 FL Neutrophils (%) (Auto) 72.6 % Lymphocytes (%) (Auto) 17.7 % Monocytes (%) (Auto) 8.5 % Eosinophils (%) (Auto) 0.7 % Basophils (%) (Auto) 0.5 % Neutrophils # (Auto) 4.0 TH/MM3 Lymphocytes # (Auto) 1.0 TH/MM3 Monocytes # (Auto) 0.5 TH/MM3 Eosinophils # (Auto) 0.0 TH/MM3 Basophils # (Auto) 0.0 TH/MM3 CBC Comment DIFF FINAL Differential Comment Blood Urea Nitrogen 16 MG/DL Creatinine 0.95 MG/DL Random Glucose 127 MG/DL Total Protein 4.9 GM/DL Albumin 2.0 GM/DL Calcium Level 8.1 MG/DL Phosphorus Level 2.0 MG/DL Magnesium Level 1.5 MG/DL Alkaline Phosphatase 119 U/L Aspartate Amino Transf (AST/SGOT) 47 U/L Alanine Aminotransferase (ALT/SGPT) 25 U/L Total Bilirubin 0.8 MG/DL Direct Bilirubin 0.2 MG/DL Sodium Level 138 MEQ/L Potassium Level 4.7 MEQ/L Chloride Level 108 MEQ/L Carbon Dioxide Level 23.5 MEQ/L Anion Gap 7 MEQ/L Estimat Glomerular Filtration Rate 56 ML/MIN Indirect Bilirubin 0.6 MG/DL Culture Results Microbiology Date/Time Source Procedure Growth Status 07/25/17 17:17 Stool Stool Stool Occult Blood (BRANDI) - Final HEMOCCULT POSITIVE Complete Administered Medications Medications (Trade) Dose Ordered Sig/Shavon Route PRN Reason Start Time Stop Time Status Last Admin Dose Admin Sodium Chloride 1,000 ml @ 100 mls/hr Q10H IV 07/24/17 15:00 07/26/17 07:54 Sodium Chloride (NS Flush) 2 ml BID IV FLUSH 07/24/17 21:00 07/26/17 07:51 Bisacodyl (Dulcolax Supp) 10 mg DAILY PRN RECTAL SEVERE CONSITIPATION 07/24/17 17:15 07/25/17 15:12 Hydromorphone HCl (Dilaudid Pf Inj) 0.5 mg Q4H PRN IV PUSH PAIN SCALE 4 TO 10 07/24/17 17:15 07/26/17 13:09 Multi-Ingredient Mouthwash/Gargle (Magic Mouthwash Adult Liq) 5 ml QID SWISH-SWAL 07/24/17 18:00 07/26/17 13:09 Betamethasone/ Clotrimazole (Lotrisone Cream) 1 applic Q12HR TOPICAL 07/24/17 21:00 07/26/17 07:55 Heparin Sodium/ Dextrose 250 ml @ 10 mls/hr TITRATE PRN IV Coagulation Management 07/24/17 17:30 07/26/17 05:16 Metoprolol Tartrate (Lopressor) 50 mg BID PO 07/25/17 21:00 07/26/17 07:54 Levofloxacin (Levaquin) 500 mg DAILY PO 07/25/17 23:30 07/26/17 07:50 Objective Remarks GENERAL: Older female resting in bed in no obvious distress SKIN: Warm and dry. HEAD: Normocephalic. EYES: No injection or drainage. NECK: Supple, trachea midline. CARDIOVASCULAR: Regular rate and rhythm without murmurs. RESPIRATORY: Shallow breaths due to pain. GASTROINTESTINAL: Abdomen soft, non-tender, nondistended. EXTREMITIES: No cyanosis, or edema. MUSCULOSKELETAL: Adequate muscle tone. NEUROLOGICAL: No obvious focal deficit. Awake, alert, and oriented x3. Assessment/Plan Problem List: (1) Pulmonary embolism ICD Codes: I26.99 - Other pulmonary embolism without acute cor pulmonale Plan: --Patient currently therapeutic on heparin drip --Will transition to Pradaxa tomorrow (2) Renal cell carcinoma ICD Codes: C64.9 - Malignant neoplasm of unspecified kidney, except renal pelvis Plan: --Continue on cabozantinib Assessment 82-year-old female with renal cell carcinoma admitted with rib pain found to have pulmonary embolus Plan 1. Patient will continue on heparin drip for today 2. Plan to transition to Pradaxa tomorrow 3. Resume cabozantinib while inpatient 4. Continue supportive care; monitor CBC Attending Statement The exam, history, and the medical decision-making described in the above note were completed with the assistance of the mid-level provider. I reviewed and agree with the findings presented. I attest that I had a [id number] encounter with the patient on the same day, and personally performed and documented my assessment and findings in the medical record. No bleeding. Still has pleuritic chest pain. US showed bilateral DVT and CTA +bilateral PE. Continue heparin and plan to transition to pradaxa tomorrow. Continue cabozantinib. Discussed with pt's son. Discussed with Dr. Estrada. Problem Qualifiers (1) Renal cell carcinoma: Qualified Codes: C64.9 - Malignant neoplasm of unspecified kidney, except renal pelvis More Silverman July 26, 2017 14:40 Yousif Jones MD July 26, 2017 16:11
--- NOTE | 2017-07-26 23:58 | HHI.PR ---
Subjective Remarks patient seen this morning. Says she is feeling okay, however still left-sided pleuritic chest pain worse with movement. Objective Vital Signs Date Time Temp Pulse Resp B/P (MAP) Pulse Ox O2 Delivery O2 Flow Rate FiO2 07/26/17 20:00 97.5 97 15 139/70 (93) 95 07/26/17 16:00 97.3 85 16 144/59 (87) 94 07/26/17 12:00 97.3 79 16 123/62 (82) 95 07/26/17 08:01 91 07/26/17 04:00 98.1 92 18 136/70 (92) 93 07/26/17 00:00 97.7 99 18 160/93 (115) 96 I/O 07/26/17 07/26/17 07/26/17 07/27/17 07/27/17 07/27/17 07:00 15:00 23:00 07:00 15:00 23:00 Intake Total 1000 ml 1232 ml 580 ml Balance 1000 ml 1232 ml 580 ml Intake Oral 480 ml IV Total 1000 ml 1232 ml 100 ml # Voids 1 3 # Bowel Movements 1 1 Result Diagram: 07/26/17 0303 07/26/17 0303 Imaging Last Impressions Lower Extremity Ultrasound 07/25/17 0000 Signed Impressions: Service Date/Time: Tuesday, July 25, 2017 10:47 - CONCLUSION: 1. Occlusive right calf vein DVT. 2. Partially occlusive left popliteal vein DVT, likely chronic. Jin Lara MD CT Angiography 07/25/17 0000 Signed Impressions: Service Date/Time: Tuesday, July 25, 2017 11:51 - CONCLUSION: 1. Bilateral pulmonary emboli. 2. Multiple areas of consolidation. 3. Small pleural effusion. 4. Moderate amount of ascites in the upper abdomen. Graham Roche MD Chest X-Ray 07/24/17 1028 Signed Impressions: Service Date/Time: Monday, July 24, 2017 10:55 - CONCLUSION: The lungs are clear. Getachew Choen MD Lung Scan- Nuclear Medicine 07/24/17 0000 Signed Impressions: Service Date/Time: Monday, July 24, 2017 11:28 - CONCLUSION: Intermediate probability pulmonary embolus. Getachew Cohen MD Objective Remarks GENERAL: patient sitting up in bed. appears to be breathing more comfortably, however still chest pain with deep breathing. SKIN: Warm and dry. HEAD: Normocephalic. EYES: No scleral icterus. No injection or drainage. NECK: Supple, trachea midline. No JVD. CARDIOVASCULAR: Regular rate and rhythm without murmurs, gallops, or rubs. RESPIRATORY: Breath sounds equal bilaterally. No accessory muscle use. GASTROINTESTINAL: Abdomen soft, non-tender, nondistended. MUSCULOSKELETAL: No cyanosis, or edema. BACK: Nontender without obvious deformity. No CVA tenderness. A/P Assessment and Plan Pulmonary embolism High suspicion clinically, verified by VQ scan Doppler study of lower extremities pending Patient started on heparin drip Pain controlled with IV Dilaudid Avoiding NSAIDs due to nephrotoxicity Oncology consulted to assist with selection of oral options for treatment = Due to cancer, the possibility of lifelong treatment without an actual diagnosis of pulmonary embolism, went ahead and ordered CT pulmonary angiogram this morning which is positive for PE. Follow-up oncology recommendations. Continue heparin drip.start Levaquin for possiblepneumonia on CT =continue heparin drip. [facility] Appreciate hematology assistance. Renal cell carcinoma Ongoing treatment with p.o. 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 Continue to monitor. Constipation. Laxatives ordered. Stomatitis Patient requested Magic mouthwash, as needed Dermatomycosis Tender pink rash under left breast Lotrisone topically Hypertension Continue home meds = Restart metoprolol. DVT prophylaxis Heparin drip Discharge Planning PT evaluation ordered this morning. hopefully can go home with home health tomorrow. If cleared by oncology. Zane Estrada MD July 26, 2017 23:58
[2017-07-27] VITALS (10 sets, daily range): BP systolic 116–186; BP diastolic 71–97; PULSE 80–97; RESP 16–19; TEMP 97.7–98.7; O2SAT 92–95
[2017-07-27] MEDS ORDERED: HYDROmorphone HCL PF 2 MG/ML VIAL IV PUSH ONE (02:00)
[2017-07-27 05:09] LABS: HEMATOCRIT 33.1 % (35.0-46.0); HEMOGLOBIN 11.1 GM/DL (11.6-15.3); MEAN CELL VOLUME 84.1 FL (80.0-100.0); MEAN CORPUSCULAR HEMOGLOBIN 28.2 PG (27.0-34.0); MEAN CORPUSCULAR HGB CONC 33.5 % (32.0-36.0); MEAN PLATELET VOLUME 7.2 FL (7.0-11.0); PLATELET COUNT 171 TH/MM3 (150-450); RED BLOOD COUNT 3.94 MIL/MM3 (4.00-5.30); RED CELL DISTRIBUTION WIDTH 23.7 % (11.6-17.2); WHITE BLOOD COUNT 5.8 TH/MM3 (4.0-11.0)
[2017-07-27] MEDS: HYDROmorphone HCL PF 0.5 MG/0.5 ML SYRINGE IV PUSH PRN (06:11)
[2017-07-27] MEDS: CABOZANTINIB 60 MG PO SCH (06:11)
[2017-07-27] MEDS ORDERED: NALOXONE HCL 0.4 MG/ML AMP IV PUSH PRN ×2 (09:30→18:00)
[2017-07-27] MEDS ORDERED: oxyCODONE/ACETAMINOPHEN 10 MG/325 MG TAB PO PRN (09:30)
[2017-07-27] MEDS ORDERED: HYDROmorphone HCL PF 0.5 MG/0.5 ML SYRINGE IV PUSH PRN (09:30)
[2017-07-27] MEDS ORDERED: oxyCODONE/ACETAMINOPHEN 5 MG/325 MG TAB PO PRN ×2 (09:30→18:00)
[2017-07-27] MEDS: LEVOFLOXACIN 500 MG TAB PO SCH (09:31)
[2017-07-27] MEDS: NYSTAT/DIPHENHY/LIDO MOUTHWASH (Adult) 120ML SWISH-SWAL SCH ×4 (09:31→19:53)
[2017-07-27] MEDS: SODIUM CHLORIDE 0.9% FLUSH 10 ML FLUSH IV FLUSH SCH ×2 (09:31→19:53)
[2017-07-27] MEDS: DOCUSATE SODIUM 50 MG/SENNA 8.6 MG TAB PO SCH ×2 (09:31→19:52)
[2017-07-27] MEDS: METOPROLOL TARTRATE 50 MG TAB PO SCH ×2 (09:31→19:52)
[2017-07-27] MEDS: BETAMETHASONE/CLOTRIMAZOLE CREAM 15 GM TOPICAL SCH ×2 (09:39→19:54)
[2017-07-27] MEDS: traMADol HCL 50 MG TAB PO PRN ×3 (11:38→23:21)
--- NOTE | 2017-07-27 13:01 | PD.ONC.PN ---
Subjective Subjective Remarks Afebrile Pt sitting up in bed watching TV with visitor present She reports her pain is somewhat better today She is anxious to use incentive spirometer to help with her breathing No bleeding Objective Data Date Time Temp Pulse Resp B/P (MAP) Pulse Ox O2 Delivery O2 Flow Rate FiO2 07/27/17 06:41 16 07/27/17 04:03 80 07/27/17 04:00 98.7 84 16 130/74 (92) 92 07/27/17 02:38 16 07/27/17 00:44 87 07/27/17 00:00 98.1 88 16 131/71 (91) 94 07/26/17 20:27 109 07/26/17 20:00 97.5 97 15 139/70 (93) 95 07/26/17 16:00 97.3 85 16 144/59 (87) 94 07/27/17 07/27/17 07/27/17 07:00 15:00 23:00 Intake Total 240 ml 200 ml Balance 240 ml 200 ml Result Diagram: 07/27/17 0449 07/26/17 0303 Laboratory Results Laboratory Tests Test 07/27/17 04:49 White Blood Count 5.8 TH/MM3 Red Blood Count 3.94 MIL/MM3 Hemoglobin 11.1 GM/DL Hematocrit 33.1 % Mean Corpuscular Volume 84.1 FL Mean Corpuscular Hemoglobin 28.2 PG Mean Corpuscular Hemoglobin Concent 33.5 % Red Cell Distribution Width 23.7 % Platelet Count 171 TH/MM3 Mean Platelet Volume 7.2 FL Activated Partial Thromboplast Time 48.8 SEC Culture Results Microbiology Date/Time Source Procedure Growth Status 07/25/17 17:17 Stool Stool Stool Occult Blood (BRANDI) - Final HEMOCCULT POSITIVE Complete Administered Medications Medications (Trade) Dose Ordered Sig/Shavon Route PRN Reason Start Time Stop Time Status Last Admin Dose Admin Sodium Chloride (NS Flush) 2 ml BID IV FLUSH 07/24/17 21:00 07/27/17 09:31 Bisacodyl (Dulcolax Supp) 10 mg DAILY PRN RECTAL SEVERE CONSITIPATION 07/24/17 17:15 07/25/17 15:12 Multi-Ingredient Mouthwash/Gargle (Magic Mouthwash Adult Liq) 5 ml QID SWISH-SWAL 07/24/17 18:00 07/27/17 11:39 Betamethasone/ Clotrimazole (Lotrisone Cream) 1 applic Q12HR TOPICAL 07/24/17 21:00 07/27/17 09:39 Heparin Sodium/ Dextrose 250 ml @ 10 mls/hr TITRATE PRN IV Coagulation Management 07/24/17 17:30 07/27/17 20:00 07/26/17 05:16 Metoprolol Tartrate (Lopressor) 50 mg BID PO 07/25/17 21:00 07/27/17 09:31 Senna/Docusate Sodium (Jeanette-Colace) 1 tab BID PO 07/26/17 09:00 07/27/17 09:31 Levofloxacin (Levaquin) 500 mg DAILY PO 07/25/17 23:30 07/27/17 09:31 Patient Own Medication PT OWN MED: Cabozantinib 60 mg po DAILY@0600 PO 07/27/17 06:00 07/27/17 06:11 Tramadol HCl (Ultram) 50 mg Q6H PRN PO PAIN SCALE 1 TO 10 07/27/17 10:15 07/27/17 11:38 Objective Remarks GENERAL: Older female sitting up in recliner at bedside eating lunch and talking with visitor SKIN: Warm and dry. HEAD: Normocephalic. EYES: No injection or drainage. NECK: Supple, trachea midline. CARDIOVASCULAR: Regular rate and rhythm without murmurs. RESPIRATORY: Clear anteriorly. Occasional wincing with deep breaths GASTROINTESTINAL: Abdomen soft, non-tender, nondistended. EXTREMITIES: No cyanosis, or edema. MUSCULOSKELETAL: Adequate muscle tone. NEUROLOGICAL: No obvious focal deficit. Awake, alert, and oriented x3 Assessment/Plan Problem List: (1) Pulmonary embolism ICD Codes: I26.99 - Other pulmonary embolism without acute cor pulmonale Plan: --Transition patient from heparin drip to Pradaxa this evening (2) Renal cell carcinoma ICD Codes: C64.9 - Malignant neoplasm of unspecified kidney, except renal pelvis Plan: --Continue on cabozantinib Assessment 82-year-old female with renal cell carcinoma admitted with rib pain found to have pulmonary embolus Plan 1. Start Pradaxa this evening so that patient can stay on a normal schedule for the twice daily dosing 2. Stop heparin approximately 1 hour prior to the first dose of Pradaxa 3. Continue cabozantinib 4. Monitor CBC Attending Statement The exam, history, and the medical decision-making described in the above note were completed with the assistance of the mid-level provider. I reviewed and agree with the findings presented. I attest that I had a [id number] encounter with the patient on the same day, and personally performed and documented my assessment and findings in the medical record. CP slightly better. +BM. No bleeding. Will transition to pradaxa today. Continue cabozantinib. Can be d/c 1-2 days if stable. Problem Qualifiers (1) Renal cell carcinoma: Qualified Codes: C64.9 - Malignant neoplasm of unspecified kidney, except renal pelvis More Silverman July 27, 2017 13:01 Yousif Jones MD July 27, 2017 16:09
[2017-07-27] MEDS: RESP: ALBUTEROL 2.5 MG/IPRATROPIUM 0.5 MG NEB (PRN) NEB (16:46)
--- NOTE | 2017-07-27 17:55 | HHI.PR ---
Subjective Remarks patient seen this morning. Patient still with left-sided pleuritic chest pain, however improved today. She would like to switch to tramadol. After switching to tramadol, patient's pain uncontrolled. Will add [place] as needed for breakthrough pain. Objective Vital Signs Date Time Temp Pulse Resp B/P (MAP) Pulse Ox O2 Delivery O2 Flow Rate FiO2 07/27/17 12:59 155/73 (100) 07/27/17 12:00 97.9 87 18 186/90 (122) 94 07/27/17 08:00 97.7 84 16 162/75 (104) 95 07/27/17 06:41 16 07/27/17 04:03 80 07/27/17 04:00 98.7 84 16 130/74 (92) 92 07/27/17 02:38 16 07/27/17 00:44 87 07/27/17 00:00 98.1 88 16 131/71 (91) 94 07/26/17 20:27 109 07/26/17 20:00 97.5 97 15 139/70 (93) 95 I/O 07/26/17 07/26/17 07/26/17 07/27/17 07/27/17 07/27/17 07:00 15:00 23:00 07:00 15:00 23:00 Intake Total 1000 ml 1232 ml 580 ml 240 ml 200 ml Balance 1000 ml 1232 ml 580 ml 240 ml 200 ml Intake Oral 480 ml 240 ml IV Total 1000 ml 1232 ml 100 ml 200 ml # Voids 1 3 4 # Bowel Movements 1 1 0 Result Diagram: 07/27/17 0449 07/26/17 0303 Objective Remarks GENERAL: patient sitting up in bed. appears to be breathing comfortably, however still chest pain with deep breathing. SKIN: Warm and dry. HEAD: Normocephalic. EYES: No scleral icterus. No injection or drainage. NECK: Supple, trachea midline. No JVD. CARDIOVASCULAR: Regular rate and rhythm without murmurs, gallops, or rubs. RESPIRATORY: Breath sounds equal bilaterally. No accessory muscle use. GASTROINTESTINAL: Abdomen soft, non-tender, nondistended. MUSCULOSKELETAL: No cyanosis, or edema. BACK: Nontender without obvious deformity. No CVA tenderness. A/P Assessment and Plan //Pulmonary embolism //Possible pneumonia on CT chest on admission. High suspicion clinically, verified by VQ scan Doppler study of lower extremities pending Patient started on heparin drip Pain controlled with IV Dilaudid Avoiding NSAIDs due to nephrotoxicity Oncology consulted to assist with selection of oral options for treatment = Due to cancer, the possibility of lifelong treatment without an actual diagnosis of pulmonary embolism, went ahead and ordered CT pulmonary angiogram this morning which is positive for PE. Follow-up oncology recommendations. Continue heparin drip.start Levaquin for possiblepneumonia on CT =continue heparin drip. Plan for transition to Eliquis tomorrow. Appreciate hematology assistance. = 07/27. Appreciate hematology assistance. Continue Levaquin. Switch to Pradaxa today. Appreciate assistance. Renal cell carcinoma Ongoing treatment with p.o. 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 Continue to monitor. = We will discontinue fluids to avoid ascites. Monitor hydration status Constipation. Laxatives ordered. Stomatitis Patient requested Magic mouthwash, as needed Dermatomycosis Tender pink rash under left breast Lotrisone topically Hypertension Continue home meds = Restart metoprolol. =07/27. Systolic blood pressures up in the 180s. Probably safer to avoid lisinopril. We will start amlodipine. DVT prophylaxis Heparin drip Discharge Planning Follow-up PT evaluation. We will need oncology clearance. Zane Estrada MD July 27, 2017 17:55
[2017-07-27] MEDS ORDERED: amLODIPine BESYLATE 5 MG TAB PO ONE (18:00)
[2017-07-27] MEDS ORDERED: HYDROmorphone HCL PF 0.5 MG/0.5 ML SYRINGE IV ONE (19:45)
[2017-07-27] MEDS: DABIGATRAN ETEXILATE 150 MG CAP PO SCH (21:20)
[2017-07-28] VITALS: BP 136/78; PULSE 98; RESP 19; TEMP 97.8; O2SAT 93
[2017-07-28] MEDS: RESP: ALBUTEROL 2.5 MG/IPRATROPIUM 0.5 MG NEB (PRN) NEB ×2 (01:08→20:17)
[2017-07-28 04:00] VITALS: BP 163/92; PULSE 105; RESP 19; TEMP 97.9; O2SAT 92
[2017-07-28] MEDS ORDERED: PROCHLORPERAZINE INJ 10 MG/2 ML VIAL IV PUSH ONE (04:30)
[2017-07-28 05:15] LABS: AUTOMATED NEUTROPHIL # 4.2 TH/MM3 (1.8-7.7); BASOPHIL % 0.2 % (0.0-2.0); EOSINOPHIL % 0.4 % (0.0-4.0); HEMATOCRIT 35.5 % (35.0-46.0); HEMOGLOBIN 12.2 GM/DL (11.6-15.3); LYMPH % 19.6 % (9.0-44.0); LYMPHOCYTE # 1.1 TH/MM3 (1.0-4.8); MEAN CORPUSCULAR HEMOGLOBIN 28.7 PG (27.0-34.0); MEAN CORPUSCULAR HGB CONC 34.2 % (32.0-36.0); MEAN PLATELET VOLUME 7.4 FL (7.0-11.0); MONO % 6.9 % (0.0-8.0); MONOCYTE # 0.4 TH/MM3 (0-0.9); NEUT % 72.9 % (16.0-70.0); PLATELET COUNT 164 TH/MM3 (150-450); RED BLOOD COUNT 4.23 MIL/MM3 (4.00-5.30); RED CELL DISTRIBUTION WIDTH 23.6 % (11.6-17.2); WHITE BLOOD COUNT 5.8 TH/MM3 (4.0-11.0)
[2017-07-28] MEDS: CABOZANTINIB 60 MG PO SCH (06:04)
[2017-07-28 07:37] LABS: KERATOCYTES OCC (NORMAL); OVALOCYTES 1+ (NORMAL)
[2017-07-28 08:00] VITALS: BP 123/79; PULSE 93; RESP 16; TEMP 97.3; O2SAT 97
[2017-07-28] MEDS: BETAMETHASONE/CLOTRIMAZOLE CREAM 15 GM TOPICAL SCH ×2 (09:00→21:00)
--- NOTE | 2017-07-28 09:10 | RADRPT ---
EXAM DATE/TIME: 07/28/2017 08:22 [facility] COMPARISON: CHEST SINGLE AP, July 24, 2017, 10:55. INDICATIONS : Left sided chest pain since Monday. MEDICAL HISTORY : Cardiovascular disease. Renal Cancer SURGICAL HISTORY : Ortho surgeries, [id number] ENCOUNTER: Subsequent ACUITY: 4 - 6 days PAIN SCORE: 5/10 LOCATION: Left chest FINDINGS: [id number] in good position. New patchy airspace disease in both lung bases There is no pleural effusion. There is no pneumothorax. The heart and pulmonary vascularity are norm al. The portion of the bony skeleton visualized is unremarkable. CONCLUSION: Increasing bibasilar parenchymal changes. Eribetro Renee MD FACR on July 28, 2017 at 9:07 Board Certified Radiologist. This report was verified electronically.
[2017-07-28] MEDS: SODIUM CHLORIDE 0.9% FLUSH 10 ML FLUSH IV FLUSH SCH ×2 (09:12→21:00)
[2017-07-28] MEDS: LEVOFLOXACIN 500 MG TAB PO SCH (09:12)
[2017-07-28] MEDS: DOCUSATE SODIUM 50 MG/SENNA 8.6 MG TAB PO SCH ×2 (09:12→21:00)
[2017-07-28] MEDS: METOPROLOL TARTRATE 50 MG TAB PO SCH ×2 (09:12→21:02)
[2017-07-28] MEDS: amLODIPine BESYLATE 5 MG TAB PO SCH (09:13)
[2017-07-28] MEDS: POLYETHYLENE GLYCOL 17 GM PKG PO SCH (09:13)
[2017-07-28] MEDS: DABIGATRAN ETEXILATE 150 MG CAP PO SCH ×2 (09:13→21:00)
[2017-07-28] MEDS: NYSTAT/DIPHENHY/LIDO MOUTHWASH (Adult) 120ML SWISH-SWAL SCH ×4 (09:15→21:00)
--- NOTE | 2017-07-28 09:16 | RADRPT ---
EXAM DATE/TIME: 07/28/2017 08:01 [facility] COMPARISON: CT ABDOMEN & PELVIS W/O CONTRAST, May 02, 2017, 20:57. EXTERNAL COMPARISON : [facility], CT ABDOMEN & PELVIS W/CONTRAST October 03, 2016 INDICATIONS : Abdominal pain. MEDICAL HISTORY : Hypercholesterolemia. Hypertension. Gastroesophageal reflux disease. Hyperlipidemia. Arthritis. Chemo therapy. Renal cancer. SURGICAL HISTORY : Appendectomy. Cholecystectomy. Hysterectomy. Nephrectomy. Bilateral knee arthroscopy. ENCOUNTER: Initial ACUITY: 2 days PAIN SCORE: 5/10 LOCATION: Abdomen. MEASUREMENTS: LIVER: 15.7 cm length COMMON DUCT: 9 mm RIGHT KIDNEY: 11.8 x 4.9 x 4.1 cm LEFT KIDNEY: Nephrectomy SPLEEN: 9.3 cm length AORTA: 1.7cm maximal FINDINGS: LIVER: Normal echotexture without focal lesion or ductal dilatation. Moderate ascites. COMMON DUCT: No intraluminal mass or stone visualized. GALLBLADDER: Surgically absent. PANCREAS: The visualized portions are within normal limits. RIGHT KIDNEY: Mild increased cortical echogenicity. No hydronephrosis, stone or mass. LEFT KIDNEY: Status post nephrectomy. SPLEEN: Redemonstration of an exophytic hypoechoic solid vascular mass in the inferior spleen measuring 3.7 x 3.6 x 3.4 cm. AORTA: Non aneurysmal proximally. Mid to distal aorta is not well demonstrated. IVC: Within normal limits in its visualized portions. CONCLUSION: 1. Moderate ascites. Patient has a history of malignant ascites with carcinomatosis. 2. Redemonstration of an exophytic solid mass in the inferior spleen measuring up to 3.7 cm. 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 3. Mildly increased right renal cortical echogenicity which may reflect some degree of medical renal disease. Jin Lara MD on July 28, 2017 at 9:08 Board Certified Radiologist. This report was verified electronically.
[2017-07-28] MEDS: HYDROmorphone HCL PF 0.5 MG/0.5 ML SYRINGE IV PUSH PRN ×2 (09:29→15:55)
[2017-07-28] MEDS: MEGESTROL ACETATE SUSP 400 MG/10 ML CUP PO SCH (11:33)
[2017-07-28 12:00] VITALS: BP 129/79; PULSE 93; RESP 17; TEMP 98; O2SAT 93
--- NOTE | 2017-07-28 14:44 | PD.ONC.PN ---
Subjective Subjective Remarks Afebrile Patient sleep in bed on approach She reports it is time for her pain meds but she feels like she does not need them yet Complains of abdominal "fullness" Reports her breathing is okay Overall pain improved to the left rib area Objective Data Date Time Temp Pulse Resp B/P (MAP) Pulse Ox O2 Delivery O2 Flow Rate FiO2 07/28/17 12:00 98.0 93 17 129/79 (96) 93 07/28/17 08:00 97.3 93 16 123/79 (94) 97 07/28/17 04:00 97.9 105 19 163/92 (115) 92 07/28/17 00:21 17 07/28/17 00:00 97.8 98 19 136/78 (97) 93 07/27/17 23:45 97 07/27/17 20:22 16 07/27/17 20:00 97.8 97 19 116/72 (87) 93 07/27/17 16:00 97.8 96 18 184/97 (126) 92 07/28/17 07/28/17 07/28/17 07:00 15:00 23:00 Intake Total 1700 ml Output Total 300 ml Balance 1700 ml -300 ml Result Diagram: 07/28/17 0410 07/26/17 0303 Laboratory Results Laboratory Tests Test 07/28/17 04:10 White Blood Count 5.8 TH/MM3 Red Blood Count 4.23 MIL/MM3 Hemoglobin 12.2 GM/DL Hematocrit 35.5 % Mean Corpuscular Volume 84.0 FL Mean Corpuscular Hemoglobin 28.7 PG Mean Corpuscular Hemoglobin Concent 34.2 % Red Cell Distribution Width 23.6 % Platelet Count 164 TH/MM3 Mean Platelet Volume 7.4 FL Neutrophils (%) (Auto) 72.9 % Lymphocytes (%) (Auto) 19.6 % Monocytes (%) (Auto) 6.9 % Eosinophils (%) (Auto) 0.4 % Basophils (%) (Auto) 0.2 % Neutrophils # (Auto) 4.2 TH/MM3 Lymphocytes # (Auto) 1.1 TH/MM3 Monocytes # (Auto) 0.4 TH/MM3 Eosinophils # (Auto) 0.0 TH/MM3 Basophils # (Auto) 0.0 TH/MM3 CBC Comment AUTO DIFF Differential Comment AUTO DIFF CONFIRMED Platelet Estimate NORMAL Platelet Morphology Comment NORMAL Ovalocytes 1+ Keratocytes OCC Activated Partial Thromboplast Time 38.5 SEC Culture Results Microbiology Date/Time Source Procedure Growth Status 07/25/17 17:17 Stool Stool Stool Occult Blood (BRANDI) - Final HEMOCCULT POSITIVE Complete Imaging Studies Last 24 hours Impressions Abdomen Ultrasound 07/28/171999 Signed Impressions: Service Date/Time: Friday, July 28, 2017 08:01 - CONCLUSION: 1. Moderate ascites. Patient has a history of malignant ascites with carcinomatosis. 2. Redemonstration of an exophytic solid mass in the inferior spleen measuring up to 3.7 cm. 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 3. Mildly increased right renal cortical echogenicity which may reflect some degree of medical renal disease. Jin Lara MD Chest X-Ray 07/28/17 0000 Signed Impressions: Service Date/Time: Friday, July 28, 2017 08:22 - CONCLUSION: Increasing bibasilar parenchymal changes. Eriberto Renee MD FACR Administered Medications Medications (Trade) Dose Ordered Sig/Shavon Route PRN Reason Start Time Stop Time Status Last Admin Dose Admin Sodium Chloride (NS Flush) 2 ml BID IV FLUSH 07/24/17 21:00 07/28/17 09:12 Bisacodyl (Dulcolax Supp) 10 mg DAILY PRN RECTAL SEVERE CONSITIPATION 07/24/17 17:15 07/25/17 15:12 Multi-Ingredient Mouthwash/Gargle (Magic Mouthwash Adult Liq) 5 ml QID SWISH-SWAL 07/24/17 18:00 07/28/17 11:33 Betamethasone/ Clotrimazole (Lotrisone Cream) 1 applic Q12HR TOPICAL 07/24/17 21:00 07/27/17 19:54 Metoprolol Tartrate (Lopressor) 50 mg BID PO 07/25/17 21:00 07/28/17 09:12 Senna/Docusate Sodium (Jeanette-Colace) 1 tab BID PO 07/26/17 09:00 07/28/17 09:12 Levofloxacin (Levaquin) 500 mg DAILY PO 07/25/17 23:30 07/28/17 09:12 Patient Own Medication PT OWN MED: Cabozantinib 60 mg po DAILY@0600 PO 07/27/17 06:00 07/28/17 06:04 Albuterol/ Ipratropium (Duoneb Neb) 1 ampule Q4HR NEB PRN NEB SOB/WHEEZING 07/26/17 23:30 07/28/17 01:08 Polyethylene Glycol (Miralax) 17 gm DAILY PO 07/28/17 09:00 07/28/17 09:13 Dabigatran (Pradaxa) 150 mg BID PO 07/27/17 21:00 07/28/17 09:13 Amlodipine Besylate (Norvasc) 5 mg DAILY PO 07/28/17 09:00 07/28/17 09:13 Hydromorphone HCl (Dilaudid Pf Inj) 0.5 mg Q4H PRN IV PUSH PAIN SCALE 4 TO 10 07/28/17 08:00 07/28/17 09:29 Megestrol Acetate (Megace Liq) 400 mg DAILY PO 07/28/17 10:15 07/28/17 11:33 Objective Remarks GENERAL: Older female asleep in bed on approach no obvious distress SKIN: Warm and dry. HEAD: Normocephalic. EYES: No injection or drainage. NECK: Supple, trachea midline. CARDIOVASCULAR: Regular rate and rhythm without murmurs. RESPIRATORY: Clear anteriorly. Occasional wincing with deep breaths GASTROINTESTINAL: Abdomen soft, non-tender, nondistended. EXTREMITIES: No cyanosis, or edema. MUSCULOSKELETAL: Adequate muscle tone. NEUROLOGICAL: No obvious focal deficit. Awake, alert, and oriented x3 Assessment/Plan Problem List: (1) Pulmonary embolism ICD Codes: I26.99 - Other pulmonary embolism without acute cor pulmonale Plan: --Transition patient from heparin drip to Pradaxa this evening (2) Renal cell carcinoma ICD Codes: C64.9 - Malignant neoplasm of unspecified kidney, except renal pelvis Plan: --Continue on cabozantinib Assessment 82-year-old female with renal cell carcinoma admitted with rib pain found to have pulmonary embolus Plan 1. Continue Pradaxa for PE 2. Resume Megace for poor appetite 3. Continue cabozantinib 4. Monitor CBC Attending Statement The exam, history, and the medical decision-making described in the above note were completed with the assistance of the mid-level provider. I reviewed and agree with the findings presented. I attest that I had a [id number] encounter with the patient on the same day, and personally performed and documented my assessment and findings in the medical record. Still has pain but better. Tramadol cause her to vomit. Restart IV dialudid prn. C/o abdominal distention. await US to see if she has increased ascites. Still has SOB and wheezes, get CXR. Tolerating pradaxa. No bleeding noted. Pleuritic pain better. +anorexia, restart megace. May need IVF if not able to drink enough. Continue cabozantinib. Discussed with pt and family. Problem Qualifiers (1) Renal cell carcinoma: Qualified Codes: C64.9 - Malignant neoplasm of unspecified kidney, except renal pelvis More Silverman July 28, 2017 14:44 Yousif Jones MD July 28, 2017 14:55
[2017-07-28 16:00] VITALS: BP 158/82; PULSE 92; RESP 16; TEMP 97.5; O2SAT 93
--- NOTE | 2017-07-28 18:52 | HHI.PR ---
Subjective Remarks PAtient states has mild sob Denies cp Denies fevers or chills Objective Vitals Vital Signs Date Time Temp Pulse Resp B/P (MAP) Pulse Ox O2 Delivery O2 Flow Rate FiO2 07/28/17 16:00 97.5 92 16 158/82 (107) 93 07/28/17 12:00 98.0 93 17 129/79 (96) 93 07/28/17 08:00 97.3 93 16 123/79 (94) 97 07/28/17 04:00 97.9 105 19 163/92 (115) 92 07/28/17 00:21 17 07/28/17 00:00 97.8 98 19 136/78 (97) 93 07/27/17 23:45 97 07/27/17 20:22 16 07/27/17 20:00 97.8 97 19 116/72 (87) 93 I/O 07/27/17 07/27/17 07/27/17 07/28/17 07/28/17 07/28/17 06:59 14:59 22:59 06:59 14:59 22:59 Intake Total 240 ml 200 ml 360 ml 1700 ml 1080 ml Output Total 1050 ml 300 ml 100 ml Balance 240 ml 200 ml -690 ml 1700 ml -300 ml 980 ml Intake Oral 240 ml 360 ml 1700 ml 1080 ml IV Total 200 ml Output Urine Total 1050 ml 300 ml 100 ml # Voids 4 4 # Bowel Movements 0 0 2 Result Diagram: 07/28/17 0410 07/26/17 0303 Imaging Last 72 hours Impressions Abdomen Ultrasound 07/28/17 2000 Signed Impressions: Service Date/Time: Friday, July 28, 2017 08:01 - CONCLUSION: 1. Moderate ascites. Patient has a history of malignant ascites with carcinomatosis. 2. Redemonstration of an exophytic solid mass in the inferior spleen measuring up to 3.7 cm. 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 3. Mildly increased right renal cortical echogenicity which may reflect some degree of medical renal disease. Jin Lara MD Chest X-Ray 07/28/17 0000 Signed Impressions: Service Date/Time: Friday, July 28, 2017 08:22 - CONCLUSION: Increasing bibasilar parenchymal changes. Eriberto Renee MD FACR Objective Remarks AAOx3 Right port covered C/D?I Crackles in BL lower lung reynaga right greater than left S1S2 RRR, no MRG abdomen is mildy distended, soft, + ascites A/P Problem List: (1) Pulmonary embolism ICD Code: I26.99 - Other pulmonary embolism without acute cor pulmonale (2) Renal cell carcinoma ICD Code: C64.9 - Malignant neoplasm of unspecified kidney, except renal pelvis Assessment and Plan 1. Pulmonary embolism. Patient with very high suspicion clinically, verified the VQ scan. Patient started on heparin drip. Patient's pain controlled with IV Dilaudid. The patient did not tolerate tramadol due to nausea. Oncology consulted. We will transition to Pradaxa this evening. I will start the patient on fentanyl patch and switch Dilaudid IV to as needed. 2. Renal cell carcinoma. Ongoing treatment with oral chemotherapy. 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 Abdominal ultrasound showed moderate ascites. Start the patient oral Lasix. If no improvement in will have it drained. 3. Bilateral infiltrates. Chest x-ray obtained today on 06/28 and reviewed by me shows increasing bibasilar parenchymal changes. Patient is a febrile and does not have a white count for now. We will start the patient on oral Lasix since patient has some signs of fluid overload with ascites, mild bilateral edema of the lower extremities. 4. Stool Hemoccult positive. No viviane blood. Hemoglobin has remained stable. Continue blood thinners and continue to monitor hemoglobin. DVT prophylaxis: On heparin drip. Discharge Planning Continue to monitor the medical floor discharge pending pain control and hematology clearance. Problem Qualifiers (1) Renal cell carcinoma: Qualified Codes: C64.9 - Malignant neoplasm of unspecified kidney, except renal pelvis Juan Morin MD July 28, 2017 18:52
[2017-07-28 20:00] VITALS: BP 164/85; PULSE 95; RESP 17; TEMP 97.9; O2SAT 96
[2017-07-28] MEDS ORDERED: fentaNYL 25 MCG/HR PATCH T-DERMAL SCH (20:00)
[2017-07-28] MEDS ORDERED: REMOVE OLD PATCH T-DERMAL SCH (20:00)
[2017-07-28] MEDS: FUROSEMIDE 20 MG TAB PO SCH (22:22)
[2017-07-29] VITALS (7 sets, daily range): BP systolic 133–149; BP diastolic 68–82; PULSE 78–100; RESP 17–22; TEMP 97.3–97.9; O2SAT 95–97
[2017-07-29] MEDS: CABOZANTINIB 60 MG PO SCH (05:12)
[2017-07-29 05:57] LABS: AUTOMATED NEUTROPHIL # 4.6 TH/MM3 (1.8-7.7); BASOPHIL % 0.3 % (0.0-2.0); EOSINOPHIL # 0.1 TH/MM3 (0-0.4); EOSINOPHIL % 0.9 % (0.0-4.0); HEMATOCRIT 34.7 % (35.0-46.0); HEMOGLOBIN 11.8 GM/DL (11.6-15.3); LYMPH % 17.5 % (9.0-44.0); LYMPHOCYTE # 1.1 TH/MM3 (1.0-4.8); MEAN CELL VOLUME 83.8 FL (80.0-100.0); MEAN CORPUSCULAR HEMOGLOBIN 28.4 PG (27.0-34.0); MEAN CORPUSCULAR HGB CONC 33.9 % (32.0-36.0); MEAN PLATELET VOLUME 7.1 FL (7.0-11.0); MONO % 7.7 % (0.0-8.0); MONOCYTE # 0.5 TH/MM3 (0-0.9); NEUT % 73.6 % (16.0-70.0); PLATELET COUNT 172 TH/MM3 (150-450); RED BLOOD COUNT 4.14 MIL/MM3 (4.00-5.30); WHITE BLOOD COUNT 6.3 TH/MM3 (4.0-11.0)
[2017-07-29 06:25] LABS: ALBUMIN 1.9 GM/DL (3.4-5.0); ALKALINE PHOSPHATASE 130 U/L (45-117); ALT (GPT) 20 U/L (10-53); AST (GOT) 39 U/L (15-37); BICARBONATE 20.7 MEQ/L (21.0-32.0); BLOOD UREA NITROGEN 10 MG/DL (7-18); CALCIUM 8.4 MG/DL (8.5-10.1); CHLORIDE 101 MEQ/L (98-107); CREATININE 0.78 MG/DL (0.50-1.00); GLOMERULAR FILTRATION RATE 70 ML/MIN (>89); GLUCOSE,RANDOM 108 MG/DL (74-106); MAGNESIUM 1.3 MG/DL (1.5-2.5); SODIUM (NA) 133 MEQ/L (136-145); TOTAL BILIRUBIN ADULT 0.8 MG/DL (0.2-1.0); TOTAL PROTEIN 5.2 GM/DL (6.4-8.2)
[2017-07-29] MEDS: BETAMETHASONE/CLOTRIMAZOLE CREAM 15 GM TOPICAL SCH ×2 (09:00→21:52)
[2017-07-29] MEDS: NYSTAT/DIPHENHY/LIDO MOUTHWASH (Adult) 120ML SWISH-SWAL SCH ×4 (09:00→21:51)
[2017-07-29] MEDS: DABIGATRAN ETEXILATE 150 MG CAP PO SCH ×2 (09:00→21:50)
[2017-07-29] MEDS: amLODIPine BESYLATE 5 MG TAB PO SCH (09:06)
[2017-07-29] MEDS: POLYETHYLENE GLYCOL 17 GM PKG PO SCH (09:06)
[2017-07-29] MEDS: FUROSEMIDE 20 MG TAB PO SCH (09:07)
[2017-07-29] MEDS: DOCUSATE SODIUM 50 MG/SENNA 8.6 MG TAB PO SCH ×2 (09:07→21:00)
[2017-07-29] MEDS: LEVOFLOXACIN 500 MG TAB PO SCH (09:07)
[2017-07-29] MEDS: METOPROLOL TARTRATE 50 MG TAB PO SCH ×2 (09:07→21:49)
[2017-07-29] MEDS: SODIUM CHLORIDE 0.9% FLUSH 10 ML FLUSH IV FLUSH SCH (09:07)
[2017-07-29] MEDS: MEGESTROL ACETATE SUSP 400 MG/10 ML CUP PO SCH (09:07)
[2017-07-29] MEDS: POTASSIUM CHLORIDE 25 MEQ EFFERVESCENT TAB PO SCH ×2 (11:15→21:49)
--- NOTE | 2017-07-29 11:19 | PD.ONC.PN ---
Subjective Subjective Remarks Afebrile Patient's daughter at the bedside concerned that her mom was not taking Magic mouthwash Patient states she was afraid to take it when it was not scanned at the exact time Reports her breathing is okay. She states her pain is much improved since getting a fentanyl patch Objective Data Date Time Temp Pulse Resp B/P (MAP) Pulse Ox O2 Delivery O2 Flow Rate FiO2 07/29/17 08:00 97.9 90 20 142/68 (92) 95 07/29/17 04:47 97.9 88 18 147/78 (101) 97 07/29/17 00:00 97.4 99 21 133/76 (95) 97 07/28/17 22:03 20 07/28/17 20:00 97.9 95 17 164/85 (111) 96 07/28/17 16:00 97.5 92 16 158/82 (107) 93 07/28/17 12:00 98.0 93 17 129/79 (96) 93 07/29/17 07/29/17 07/29/17 07:00 15:00 23:00 Intake Total 480 ml 0 ml Output Total 800 ml Balance -320 ml 0 ml Result Diagram: 07/29/17 0530 07/29/17 0530 Laboratory Results Laboratory Tests Test 07/29/17 05:30 White Blood Count 6.3 TH/MM3 Red Blood Count 4.14 MIL/MM3 Hemoglobin 11.8 GM/DL Hematocrit 34.7 % Mean Corpuscular Volume 83.8 FL Mean Corpuscular Hemoglobin 28.4 PG Mean Corpuscular Hemoglobin Concent 33.9 % Red Cell Distribution Width 24.0 % Platelet Count 172 TH/MM3 Mean Platelet Volume 7.1 FL Neutrophils (%) (Auto) 73.6 % Lymphocytes (%) (Auto) 17.5 % Monocytes (%) (Auto) 7.7 % Eosinophils (%) (Auto) 0.9 % Basophils (%) (Auto) 0.3 % Neutrophils # (Auto) 4.6 TH/MM3 Lymphocytes # (Auto) 1.1 TH/MM3 Monocytes # (Auto) 0.5 TH/MM3 Eosinophils # (Auto) 0.1 TH/MM3 Basophils # (Auto) 0.0 TH/MM3 CBC Comment DIFF FINAL Differential Comment Activated Partial Thromboplast Time 45.0 SEC Blood Urea Nitrogen 10 MG/DL Creatinine 0.78 MG/DL Random Glucose 108 MG/DL Total Protein 5.2 GM/DL Albumin 1.9 GM/DL Calcium Level 8.4 MG/DL Phosphorus Level 2.0 MG/DL Magnesium Level 1.3 MG/DL Alkaline Phosphatase 130 U/L Aspartate Amino Transf (AST/SGOT) 39 U/L Alanine Aminotransferase (ALT/SGPT) 20 U/L Total Bilirubin 0.8 MG/DL Sodium Level 133 MEQ/L Potassium Level 3.3 MEQ/L Chloride Level 101 MEQ/L Carbon Dioxide Level 20.7 MEQ/L Anion Gap 11 MEQ/L Estimat Glomerular Filtration Rate 70 ML/MIN Imaging Studies Last 24 hours Impressions Abdomen Ultrasound 07/28/171999 Signed Impressions: Service Date/Time: Friday, July 28, 2017 08:01 - CONCLUSION: 1. Moderate ascites. Patient has a history of malignant ascites with carcinomatosis. 2. Redemonstration of an exophytic solid mass in the inferior spleen measuring up to 3.7 cm. 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 3. Mildly increased right renal cortical echogenicity which may reflect some degree of medical renal disease. Jin Lara MD Administered Medications Medications (Trade) Dose Ordered Sig/Shavon Route PRN Reason Start Time Stop Time Status Last Admin Dose Admin Sodium Chloride (NS Flush) 2 ml BID IV FLUSH 07/24/17 21:00 07/29/17 09:07 Bisacodyl (Dulcolax Supp) 10 mg DAILY PRN RECTAL SEVERE CONSITIPATION 07/24/17 17:15 07/25/17 15:12 Multi-Ingredient Mouthwash/Gargle (Magic Mouthwash Adult Liq) 5 ml QID SWISH-SWAL 07/24/17 18:00 07/29/17 09:00 Betamethasone/ Clotrimazole (Lotrisone Cream) 1 applic Q12HR TOPICAL 07/24/17 21:00 07/29/17 09:00 Metoprolol Tartrate (Lopressor) 50 mg BID PO 07/25/17 21:00 07/29/17 09:07 Senna/Docusate Sodium (Jeanette-Colace) 1 tab BID PO 07/26/17 09:00 07/29/17 09:07 Levofloxacin (Levaquin) 500 mg DAILY PO 07/25/17 23:30 07/29/17 09:07 Patient Own Medication PT OWN MED: Cabozantinib 60 mg po DAILY@0600 PO 07/27/17 06:00 07/29/17 05:12 Albuterol/ Ipratropium (Duoneb Neb) 1 ampule Q4HR NEB PRN NEB SOB/WHEEZING 07/26/17 23:30 07/28/17 20:17 Polyethylene Glycol (Miralax) 17 gm DAILY PO 07/28/17 09:00 07/29/17 09:06 Dabigatran (Pradaxa) 150 mg BID PO 07/27/17 21:00 07/29/17 09:00 Amlodipine Besylate (Norvasc) 5 mg DAILY PO 07/28/17 09:00 07/29/17 09:06 Hydromorphone HCl (Dilaudid Pf Inj) 0.5 mg Q4H PRN IV PUSH PAIN SCALE 4 TO 10 07/28/17 08:00 07/28/17 15:55 Megestrol Acetate (Megace Liq) 400 mg DAILY PO 07/28/17 10:15 07/29/17 09:07 Furosemide (Lasix) 20 mg DAILY PO 07/28/17 19:00 07/29/17 09:07 Fentanyl (Duragesic 25 Mcg Patch.72 Hr) 1 patch Q3D T-DERMAL 07/28/17 20:00 07/28/17 21:03 Objective Remarks GENERAL: Older female resting in bed in no obvious distress. Multiple family members at bedside. SKIN: Warm and dry. HEAD: Normocephalic. EYES: No injection or drainage. NECK: Supple, trachea midline. CARDIOVASCULAR: Regular rate and rhythm without murmurs. RESPIRATORY: Clear anteriorly. Occasional wincing with deep breaths GASTROINTESTINAL: Abdomen soft, non-tender, nondistended. EXTREMITIES: No cyanosis, or edema. MUSCULOSKELETAL: Adequate muscle tone. NEUROLOGICAL: No obvious focal deficit. Awake, alert, and oriented x3 Assessment/Plan Assessment 82-year-old female with renal cell carcinoma admitted with rib pain found to have pulmonary embolus Plan Patient tolerating Pradaxa with no obvious drop in hemoglobin. She is feeling better. She is largely asymptomatic from the moderate abdominal ascites and therefore we will continue to monitor this. Furthermore, she has just started anticoagulation for her PE and it would not be the best time for any type of intervention. From an oncology standpoint she is clear for discharge and PT has cleared her for home health physical therapy. Once discharged she should follow -up in the clinic where we can monitor her CBC and follow for her renal cell carcinoma. Attending Statement The exam, history, and the medical decision-making described in the above note were completed with the assistance of the mid-level provider. I reviewed and agree with the findings presented. I attest that I had a [id number] encounter with the patient on the same day, and personally performed and documented my assessment and findings in the medical record. patient examined and notable for right basilar rales. she indicates she is not short of breath. I spoke with Dr. Jones this afternoon and will stop megace as it is prothrombotic. She will have a repeat chest film today and if there is no worsening of infiltrate at right base it would be reasonable to send her home on empiric course of antibiotics and pradaxa for her PE. This was discussed with Dr. Davey and he will order and review chest film. I discussed this with patient and daughter and tried at length to make daughter understand thought process regarding possible discharge as the the daughter was concerned due to patient's comorbidities. More Silverman July 29, 2017 11:19 Rinku Barfield MD July 29, 2017 14:56
[2017-07-29] MEDS ORDERED: FUROSEMIDE 20 MG TAB PO ONE (14:30)
[2017-07-29] MEDS ORDERED: AMLO5 PO (14:34)
[2017-07-29] MEDS ORDERED: PRAD150C PO (14:34)
[2017-07-29] MEDS ORDERED: FENT25T T-DERMAL (14:34)
[2017-07-29] MEDS ORDERED: MAGICADU2 SWISH-SWAL (14:34)
[2017-07-29] MEDS ORDERED: LOTR15T TOPICAL (14:34)
[2017-07-29] MEDS ORDERED: DILA2TAB4 PO (14:36)
--- NOTE | 2017-07-29 14:37 | HHI.PR ---
Subjective Remarks Deferred entry, the patient was seen earlier at 10:30 AM. Patient states that pain is much improved. Denies any pain at this time. Denies fevers or chills. States she had been wheezing last night. Objective Vitals Vital Signs Date Time Temp Pulse Resp B/P (MAP) Pulse Ox O2 Delivery O2 Flow Rate FiO2 07/29/17 08:00 97.9 90 20 142/68 (92) 95 07/29/17 04:47 97.9 88 18 147/78 (101) 97 07/29/17 00:00 97.4 99 21 133/76 (95) 97 07/28/17 22:03 20 07/28/17 20:00 97.9 95 17 164/85 (111) 96 07/28/17 16:00 97.5 92 16 158/82 (107) 93 I/O 07/28/17 07/28/17 07/28/17 07/29/17 07/29/17 07/29/17 07:00 15:00 23:00 07:00 15:00 23:00 Intake Total 1700 ml 1080 ml 480 ml 0 ml Output Total 300 ml 100 ml 800 ml Balance 1700 ml -300 ml 980 ml -320 ml 0 ml Intake Oral 1700 ml 1080 ml 480 ml IV Total 0 ml Output Urine Total 300 ml 100 ml 800 ml # Voids 4 # Bowel Movements 2 0 Result Diagram: 07/29/17 0530 07/29/17 0530 Imaging Last Impressions Abdomen Ultrasound 07/28/171999 Signed Impressions: Service Date/Time: Friday, July 28, 2017 08:01 - CONCLUSION: 1. Moderate ascites. Patient has a history of malignant ascites with carcinomatosis. 2. Redemonstration of an exophytic solid mass in the inferior spleen measuring up to 3.7 cm. 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 3. Mildly increased right renal cortical echogenicity which may reflect some degree of medical renal disease. Jin Lara MD Chest X-Ray 07/28/17 0000 Signed Impressions: Service Date/Time: Friday, July 28, 2017 08:22 - CONCLUSION: Increasing bibasilar parenchymal changes. Eriberto Renee MD FACR Lower Extremity Ultrasound 07/25/17 0000 Signed Impressions: Service Date/Time: Tuesday, July 25, 2017 10:47 - CONCLUSION: 1. Occlusive right calf vein DVT. 2. Partially occlusive left popliteal vein DVT, likely chronic. Jin Lara MD CT Angiography 07/25/17 0000 Signed Impressions: Service Date/Time: Tuesday, July 25, 2017 11:51 - CONCLUSION: 1. Bilateral pulmonary emboli. 2. Multiple areas of consolidation. 3. Small pleural effusion. 4. Moderate amount of ascites in the upper abdomen. Graham Roche MD Lung Scan-VQ Nuclear Medicine 07/24/17 0000 Signed Impressions: Service Date/Time: Monday, July 24, 2017 11:28 - CONCLUSION: Intermediate probability pulmonary embolus. Getachew Cohen MD Objective Remarks AAOx3 Right port covered C/D?I + crackles in RLL, rest is clear to ausculation S1S2 RRR, no MRG abdomen is mildy distended, soft, + ascites A/P Problem List: (1) Pulmonary embolism ICD Code: I26.99 - Other pulmonary embolism without acute cor pulmonale (2) Renal cell carcinoma ICD Code: C64.9 - Malignant neoplasm of unspecified kidney, except renal pelvis Assessment and Plan 1. Pulmonary embolism. Patient with very high suspicion clinically, verified the VQ scan. Patient started on heparin drip. Patient's pain controlled with IV Dilaudid. The patient did not tolerate tramadol due to nausea. Oncology consulted. We will transition to Pradaxa this evening. 07/29 pain much improved on fentanyl patch. I will discontinue IV Dilaudid and start on oral Dilaudid for breakthrough pain. 2. Renal cell carcinoma. Ongoing treatment with oral chemotherapy. 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 Abdominal ultrasound showed moderate ascites. Start the patient oral Lasix. If no improvement in will have it drained. 3. Bilateral infiltrates. Chest x-ray obtained today on 06/28 and reviewed by me shows increasing bibasilar parenchymal changes. Patient is a febrile and does not have a white count for now. We will start the patient on oral Lasix since patient has some signs of fluid overload with ascites, mild bilateral edema of the lower extremities. 07/29 Repeat CXR shows persistent RLL infiltrate - reviewed by me. Add Flagyl to cover for suspected aspiration pneumonia. 4. Stool Hemoccult positive. No viviane blood. Hemoglobin has remained stable. Continue blood thinners and continue to monitor hemoglobin. 5. Hypokalemia Due to increased potassium loss secondary to diuretic use. Replace orally and monitor. 6. Malignant ascites Increase Lasix dose to 40 mg daily. The patient had abdominal ultrasound with moderate ascites, however patient wishes to wait to have that drained. 7 dysphagia Patient noted to cough when drinking water. Daughter at bedside states that she has noticed this happening frequently. Given RLL infiltrate worrisome for aspiration. Will consult ST for swallow evaluation. Will also order a modified barium swallow DVT prophylaxis: On heparin drip. Discharge Planning Discussed with Dr Barfield. Problem Qualifiers (1) Pulmonary embolism: Qualified Codes: I26.99 - Other pulmonary embolism without acute cor pulmonale (2) Renal cell carcinoma: Qualified Codes: C64.9 - Malignant neoplasm of unspecified kidney, except renal pelvis Juan Morin MD July 29, 2017 14:37
--- NOTE | 2017-07-29 14:40 | HHI.DCPOC ---
Discharge Care Plan Diagnosis: (1) Pulmonary embolism (2) Renal cell carcinoma (3) Weakness (4) H/O unilateral nephrectomy (5) Ascites (6) Anemia (7) Abnormal CXR Goals to Promote Your Health * To prevent worsening of your condition and complications * To maintain your health at the optimal level Directions to Meet Your Goals Take your medications as prescribed Follow your dietary instruction Follow activity as directed Keep your appointments as scheduled Take your immunizations and boosters as scheduled If your symptoms worsen call your PCP, if no PCP go to Urgent Care Center or Emergency Room Smoking is Dangerous to Your Health. Avoid second hand smoke Call the 24-hour hour crisis hotline for domestic abuse at Juan Morin MD July 29, 2017 14:40
[2017-07-29] MEDS ORDERED: LEVA500T33 PO (14:44)
[2017-07-29] MEDS ORDERED: DOXYCYCLINE HYCLATE 100 MG CAP PO SCH (14:45)
--- NOTE | 2017-07-29 15:07 | RADRPT ---
EXAM DATE/TIME: 07/29/2017 14:43 [facility] COMPARISON: CHEST SINGLE AP, July 28, 2017, 8:22. INDICATIONS : Infiltrate MEDICAL HISTORY : Cardiovascular disease. Renal Cancer SURGICAL HISTORY : Ortho surgeries, [id number] ENCOUNTER: Subsequent ACUITY: 1 week PAIN SCORE: 0/10 LOCATION: Bilateral chest FINDINGS: Single AP view of the chest. Right-sided [id number] remains in place. Pulmonary parenchymal consol idation in the lower lungs is unchanged. Cardia mediastinal silhouette within normal limits. No evide nce of pleural effusion or pneumothorax. CONCLUSION: No significant interval change in bilateral lower lung consolidation. Galdino Baker MD on July 29, 2017 at 15:04 Board Certified Radiologist. This report was verified electronically.
[2017-07-29] MEDS: metroNIDAZOLE 500 MG TAB PO SCH ×2 (17:15→21:52)
[2017-07-29] MEDS: ONDANSETRON HCL 4 MG/2 ML VIAL IV PUSH PRN (20:20)
[2017-07-29] MEDS ORDERED: SULFAMETHOXAZOLE-TRIMETHOPRIM DS 800-160 MG TAB PO SCH (21:00)
[2017-07-30] VITALS (9 sets, daily range): BP systolic 132–172; BP diastolic 70–88; PULSE 76–103; RESP 17–24; TEMP 97–97.6; O2SAT 95–97
[2017-07-30] MEDS: CABOZANTINIB 60 MG PO SCH (05:37)
[2017-07-30] MEDS: SODIUM CHLORIDE 0.9% FLUSH 10 ML FLUSH IV FLUSH SCH ×3 (05:41→21:02)
[2017-07-30] MEDS: metroNIDAZOLE 500 MG TAB PO SCH ×2 (05:41→13:33)
[2017-07-30 06:51] LABS: HEMATOCRIT 34.3 % (35.0-46.0); HEMOGLOBIN 11.5 GM/DL (11.6-15.3); MEAN CELL VOLUME 82.9 FL (80.0-100.0); MEAN CORPUSCULAR HEMOGLOBIN 27.8 PG (27.0-34.0); MEAN CORPUSCULAR HGB CONC 33.6 % (32.0-36.0); MEAN PLATELET VOLUME 7.4 FL (7.0-11.0); PLATELET COUNT 175 TH/MM3 (150-450); RED BLOOD COUNT 4.14 MIL/MM3 (4.00-5.30); WHITE BLOOD COUNT 6.3 TH/MM3 (4.0-11.0)
[2017-07-30] MEDS: NYSTAT/DIPHENHY/LIDO MOUTHWASH (Adult) 120ML SWISH-SWAL SCH ×4 (08:56→21:05)
[2017-07-30] MEDS: amLODIPine BESYLATE 5 MG TAB PO SCH (08:56)
[2017-07-30] MEDS: POLYETHYLENE GLYCOL 17 GM PKG PO SCH (08:56)
[2017-07-30] MEDS: METOPROLOL TARTRATE 50 MG TAB PO SCH ×2 (08:57→21:01)
[2017-07-30] MEDS: FUROSEMIDE 40 MG TAB PO SCH (08:57)
[2017-07-30] MEDS: POTASSIUM CHLORIDE 25 MEQ EFFERVESCENT TAB PO SCH ×2 (08:57→21:00)
[2017-07-30] MEDS: DOCUSATE SODIUM 50 MG/SENNA 8.6 MG TAB PO SCH ×2 (08:57→21:00)
[2017-07-30] MEDS: LEVOFLOXACIN 500 MG TAB PO SCH (08:57)
[2017-07-30] MEDS: DABIGATRAN ETEXILATE 150 MG CAP PO SCH ×2 (09:00→21:00)
[2017-07-30] MEDS: BETAMETHASONE/CLOTRIMAZOLE CREAM 15 GM TOPICAL SCH ×2 (09:00→21:05)
[2017-07-30 13:54] LABS: BICARBONATE 23.2 MEQ/L (21.0-32.0); CALCIUM 8.2 MG/DL (8.5-10.1); CREATININE 0.83 MG/DL (0.50-1.00)
--- NOTE | 2017-07-30 16:40 | HHI.PR ---
Subjective Remarks Denies cp/sob Afebrile Sating well on room air Objective Vitals Vital Signs Date Time Temp Pulse Resp B/P (MAP) Pulse Ox O2 Delivery O2 Flow Rate FiO2 07/30/17 15:14 87 07/30/17 12:00 97.4 90 24 141/87 (105) 96 07/30/17 12:00 97.4 90 24 141/87 (105) 96 07/30/17 08:00 97.1 91 22 132/74 (93) 95 07/30/17 05:03 76 07/30/17 04:00 97.0 84 17 141/70 (93) 95 07/30/17 00:00 97.4 88 17 153/71 (98) 95 07/29/17 20:01 100 07/29/17 20:00 97.5 99 17 149/82 (104) 97 I/O 07/29/17 07/29/17 07/29/17 07/30/17 07/30/17 07/30/17 07:00 15:00 23:00 07:00 15:00 23:00 Intake Total 480 ml 0 ml 1200 ml 240 ml Output Total 800 ml 800 ml Balance -320 ml 0 ml 400 ml 240 ml Intake Oral 480 ml 1200 ml 240 ml IV Total 0 ml 0 ml Output Urine Total 800 ml 600 ml Emesis 200 ml # Voids 3 # Bowel Movements 0 Result Diagram: 07/30/17 0550 07/30/17 1310 Imaging Last Impressions Chest X-Ray 07/29/17 0000 Signed Impressions: Service Date/Time: Saturday, July 29, 2017 14:43 - CONCLUSION: No significant interval change in bilateral lower lung consolidation. Galdino Baker MD Abdomen Ultrasound 07/28/171999 Signed Impressions: Service Date/Time: Friday, July 28, 2017 08:01 - CONCLUSION: 1. Moderate ascites. Patient has a history of malignant ascites with carcinomatosis. 2. Redemonstration of an exophytic solid mass in the inferior spleen measuring up to 3.7 cm. 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 3. Mildly increased right renal cortical echogenicity which may reflect some degree of medical renal disease. Jin Lara MD Lower Extremity Ultrasound 07/25/17 0000 Signed Impressions: Service Date/Time: Tuesday, July 25, 2017 10:47 - CONCLUSION: 1. Occlusive right calf vein DVT. 2. Partially occlusive left popliteal vein DVT, likely chronic. Jin Lara MD CT Angiography 07/25/17 0000 Signed Impressions: Service Date/Time: Tuesday, July 25, 2017 11:51 - CONCLUSION: 1. Bilateral pulmonary emboli. 2. Multiple areas of consolidation. 3. Small pleural effusion. 4. Moderate amount of ascites in the upper abdomen. Graham oRche MD Lung Scan-VQ Nuclear Medicine 07/24/17 0000 Signed Impressions: Service Date/Time: Monday, July 24, 2017 11:28 - CONCLUSION: Intermediate probability pulmonary embolus. Getachew Cohen MD Objective Remarks AAOx3 Right port covered C/D?I + crackles in RLL, rest is clear to ausculation S1S2 RRR, no MRG abdomen is mildy distended, soft, + ascites Medications and IVs Current Medications Medications (Trade) Dose Ordered Sig/Shavon Route Start Time Stop Time Status Last Admin (NS Flush) 2 ml UNSCH PRN IV FLUSH 07/24/17 17:15 07/29/17 20:20 (NS Flush) 2 ml BID IV FLUSH 07/24/17 21:00 07/30/17 05:41 (Narcan Inj) 0.4 mg UNSCH PRN IV PUSH 07/24/17 17:15 (Senokot) 17.2 mg Q12H PRN PO 07/24/17 17:15 (Dulcolax Supp) 10 mg DAILY PRN RECTAL 07/24/17 17:15 07/25/17 15:12 (Magic Mouthwash Adult Liq) 5 ml QID SWISH-SWAL 07/24/17 18:00 07/30/17 13:34 (Lotrisone Cream) 1 applic Q12HR TOPICAL 07/24/17 21:00 07/30/17 09:00 (Lopressor) 50 mg BID PO 07/25/17 21:00 07/30/17 08:57 (Catapres) 0.1 mg Q6H PRN PO 07/25/17 23:30 (Jeanette-Colace) 1 tab BID PO 5/2/18 09:00 07/30/17 08:57 (Levaquin) 500 mg DAILY PO 07/25/17 23:30 07/30/17 08:57 Patient Own Medication PT OWN MED: Cabozantinib 60 mg po DAILY@0600 PO 07/27/17 06:00 07/30/17 05:37 (Duoneb Neb) 1 ampule Q4HR NEB PRN NEB 07/26/17 23:30 07/28/17 20:17 (Miralax) 17 gm DAILY PO 07/28/17 09:00 07/30/17 08:56 (Pradaxa) 150 mg BID PO 07/27/17 21:00 07/29/17 21:50 (Norvasc) 5 mg DAILY PO 07/28/17 09:00 07/30/17 08:56 (Percocet 5-325 Mg) 1 tab Q4HR PRN PO 07/27/17 18:00 (Narcan Inj) 0.4 mg UNSCH PRN IV PUSH 07/27/17 18:00 (Zofran Inj) 4 mg Q6HR PRN IV PUSH 07/28/17 08:00 07/29/17 20:20 (Dilaudid Pf Inj) 0.5 mg Q4H PRN IV PUSH 07/28/17 08:00 07/28/17 15:55 (Duragesic 25 Mcg Patch.72 Hr) 1 patch Q3D T-DERMAL 07/28/17 20:00 07/28/17 21:03 Miscellaneous Information 1 Q3D T-DERMAL 07/28/17 20:00 (K-Lyte Cl Eff) 25 meq Q12HR PO 07/29/17 11:15 07/30/17 08:57 (Lasix) 40 mg DAILY PO 07/30/17 09:00 07/30/17 08:57 (Flagyl) 500 mg Q8HR PO 07/29/17 17:15 07/30/17 13:33 Urinary Catheter: No Vascular Central Line Catheter: No A/P Problem List: (1) Pulmonary embolism ICD Code: I26.99 - Other pulmonary embolism without acute cor pulmonale (2) Renal cell carcinoma ICD Code: C64.9 - Malignant neoplasm of unspecified kidney, except renal pelvis Assessment and Plan 1. Pulmonary embolism. Patient with very high suspicion clinically, verified the VQ scan. Patient started on heparin drip. Patient's pain controlled with IV Dilaudid. The patient did not tolerate tramadol due to nausea. Oncology consulted. We will transition to Pradaxa this evening. 5/5 pain much improved on fentanyl patch. I will discontinue IV Dilaudid and start on oral Dilaudid for breakthrough pain. 2. Renal cell carcinoma. Ongoing treatment with oral chemotherapy. 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 Abdominal ultrasound showed moderate ascites. Start the patient oral Lasix. If no improvement in will have it drained. 3. Bilateral infiltrates. Chest x-ray obtained today on 06/28 and reviewed by me shows increasing bibasilar parenchymal changes. Patient is a febrile and does not have a white count for now. We will start the patient on oral Lasix since patient has some signs of fluid overload with ascites, mild bilateral edema of the lower extremities. 5/5 Repeat CXR shows persistent RLL infiltrate - reviewed by me. Add Flagyl to cover for suspected aspiration pneumonia. 5/6 Patient states can't tolerate Flagyl because of its bitterness and some nausea. Dc Levaquin and Flagyl. Will start on Augmentin orally. 4. Stool Hemoccult positive. No viviane blood. Hemoglobin has remained stable. Continue blood thinners and continue to monitor hemoglobin. 5. Hypokalemia Due to increased potassium loss secondary to diuretic use. Replace orally and monitor BMP 5/6 K 3.5 continue to replace orally. 6. Malignant ascites Increase Lasix dose to 40 mg daily. The patient had abdominal ultrasound with moderate ascites, however patient wishes to wait to have that drained. 7 dysphagia Patient noted to cough when drinking water. Daughter at bedside states that she has noticed this happening frequently. Given RLL infiltrate worrisome for aspiration. 5/6 Appreciate Speech therapy recommendations. Awaiting Barium Swallow. DVT prophylaxis: On heparin drip. Discharge Planning Discussed with Dr Barfield. Spike Hicks in am after barium swallow. Problem Qualifiers (1) Pulmonary embolism: Qualified Codes: I26.99 - Other pulmonary embolism without acute cor pulmonale (2) Renal cell carcinoma: Qualified Codes: C64.9 - Malignant neoplasm of unspecified kidney, except renal pelvis Juan Morin MD July 30, 2017 16:40
[2017-07-30] MEDS: ONDANSETRON HCL 4 MG/2 ML VIAL IV PUSH PRN (16:43)
[2017-07-30] MEDS ORDERED: POTASSIUM CHLORIDE 10 MEQ CONTROLLED RELEASE TAB PO ONE (16:45)
[2017-07-30] MEDS: AMOXICILLIN/CLAVULANATE K 875 MG TAB PO SCH (21:02)
[2017-07-31] VITALS: BP 148/87; PULSE 100; RESP 17; TEMP 97.2; O2SAT 97
[2017-07-31] MEDS: CABOZANTINIB 60 MG PO SCH (05:46)
[2017-07-31 08:00] VITALS: BP 134/69; PULSE 96; RESP 17; TEMP 97.8; O2SAT 96
[2017-07-31] MEDS: DOCUSATE SODIUM 50 MG/SENNA 8.6 MG TAB PO SCH (09:00)
[2017-07-31] MEDS: POLYETHYLENE GLYCOL 17 GM PKG PO SCH (09:00)
--- NOTE | 2017-07-31 10:06 | RADRPT ---
EXAM DATE/TIME: 07/31/2017 00:00 [facility] COMPARISON: No previous studies available for comparison. INDICATIONS : Dysphagia. Patient complains of tounge and mouth pain and swelling since she started chemo. Patient a lso complains of diarrhea and a cough. FLUORO TIME: 1.6 minutes IMAGE COUNT: 0 CONTRAST: Dose as prescribed by speech pathologist. MEDICAL HISTORY : Left kidney CA. Chemo. SURGICAL HISTORY : Left kidney removed. ENCOUNTER: Subsequent ACUITY: 2 months PAIN SCORE: 0/10 LOCATION: Esophagus. FINDINGS: A modified barium swallow was performed with speech pathology. Patient was given a variety of liquids to swallow. No aspiration or penetration was seen. The patient had some hesitation in initiating swallowing. For a full detailed report, see report by the speech pathologist. CONCLUSION: No aspiration or penetration seen. Stephen Young MD on July 31, 2017 at 10:03 Board Certified Radiologist. This report was verified electronically.
[2017-07-31] MEDS: POTASSIUM CHLORIDE 25 MEQ EFFERVESCENT TAB PO SCH (10:32)
[2017-07-31] MEDS: AMOXICILLIN/CLAVULANATE K 875 MG TAB PO SCH (10:36)
[2017-07-31] MEDS: FUROSEMIDE 40 MG TAB PO SCH (10:36)
[2017-07-31] MEDS: amLODIPine BESYLATE 5 MG TAB PO SCH (10:37)
[2017-07-31] MEDS: METOPROLOL TARTRATE 50 MG TAB PO SCH (10:37)
[2017-07-31] MEDS: DABIGATRAN ETEXILATE 150 MG CAP PO SCH (10:54)
[2017-07-31] MEDS: NYSTAT/DIPHENHY/LIDO MOUTHWASH (Adult) 120ML SWISH-SWAL SCH (10:55)
[2017-07-31] MEDS: SODIUM CHLORIDE 0.9% FLUSH 10 ML FLUSH IV FLUSH SCH (10:56)
[2017-07-31] MEDS: BETAMETHASONE/CLOTRIMAZOLE CREAM 15 GM TOPICAL SCH (10:56)
--- NOTE | 2017-07-31 11:25 | PD.ONC.PN ---
Subjective Subjective Remarks Afebrile overnight. Patient resting in bed in nad. Eager to go home. passed barium swallow this am. Objective Data Date Time Temp Pulse Resp B/P (MAP) Pulse Ox O2 Delivery O2 Flow Rate FiO2 07/31/17 08:00 97.8 96 17 134/69 (90) 96 07/31/17 00:00 97.2 100 17 148/87 (107) 97 07/30/17 20:00 97.6 103 17 172/88 (116) 97 07/30/17 19:15 97 07/30/17 16:00 97.3 86 22 139/78 (98) 96 07/30/17 15:14 87 07/30/17 12:00 97.4 90 24 141/87 (105) 96 07/30/17 12:00 97.4 90 24 141/87 (105) 96 07/31/17 07/31/17 07/31/17 07:00 15:00 23:00 Intake Total 240 ml Balance 240 ml Result Diagram: 07/30/17 0550 07/30/17 1310 Laboratory Results Laboratory Tests Test 07/30/17 13:10 07/31/17 05:50 Activated Partial Thromboplast Time 45.3 SEC 42.5 SEC Blood Urea Nitrogen 10 MG/DL Creatinine 0.83 MG/DL Random Glucose 96 MG/DL Calcium Level 8.2 MG/DL Sodium Level 132 MEQ/L Potassium Level 3.5 MEQ/L Chloride Level 98 MEQ/L Carbon Dioxide Level 23.2 MEQ/L Anion Gap 11 MEQ/L Estimat Glomerular Filtration Rate 65 ML/MIN Imaging Studies Last 24 hours Impressions Modified Barium Swallow 07/31/17 0000 Signed Impressions: Service Date/Time: Monday, July 31, 2017 00:00 - CONCLUSION: No aspiration or penetration seen. Stephen Young MD Administered Medications Medications (Trade) Dose Ordered Sig/Shavon Route PRN Reason Start Time Stop Time Status Last Admin Dose Admin Sodium Chloride (NS Flush) 2 ml UNSCH PRN IV FLUSH FLUSH AFTER USING IV ACCESS 07/24/17 17:15 07/29/17 20:20 Sodium Chloride (NS Flush) 2 ml BID IV FLUSH 07/24/17 21:00 07/31/17 10:56 Bisacodyl (Dulcolax Supp) 10 mg DAILY PRN RECTAL SEVERE CONSITIPATION 07/24/17 17:15 07/25/17 15:12 Multi-Ingredient Mouthwash/Gargle (Magic Mouthwash Adult Liq) 5 ml QID SWISH-SWAL 07/24/17 18:00 07/31/17 10:55 Betamethasone/ Clotrimazole (Lotrisone Cream) 1 applic Q12HR TOPICAL 07/24/17 21:00 07/31/17 10:56 Metoprolol Tartrate (Lopressor) 50 mg BID PO 07/25/17 21:00 07/31/17 10:37 Senna/Docusate Sodium (Jeanette-Colace) 1 tab BID PO 07/26/17 09:00 07/30/17 08:57 Patient Own Medication PT OWN MED: Cabozantinib 60 mg po DAILY@0600 PO 07/27/17 06:00 07/31/17 05:46 Albuterol/ Ipratropium (Duoneb Neb) 1 ampule Q4HR NEB PRN NEB SOB/WHEEZING 07/26/17 23:30 07/28/17 20:17 Polyethylene Glycol (Miralax) 17 gm DAILY PO 07/28/17 09:00 07/30/17 08:56 Dabigatran (Pradaxa) 150 mg BID PO 07/27/17 21:00 07/31/17 10:54 Amlodipine Besylate (Norvasc) 5 mg DAILY PO 07/28/17 09:00 07/31/17 10:37 Ondansetron HCl (Zofran Inj) 4 mg Q6HR PRN IV PUSH NAUSEA 07/28/17 08:00 07/30/17 16:43 Hydromorphone HCl (Dilaudid Pf Inj) 0.5 mg Q4H PRN IV PUSH PAIN SCALE 4 TO 10 07/28/17 08:00 07/28/17 15:55 Fentanyl (Duragesic 25 Mcg Patch.72 Hr) 1 patch Q3D T-DERMAL 07/28/17 20:00 07/28/17 21:03 Potassium Bicarb/ Potassium Chloride (K-Lyte Cl Eff) 25 meq Q12HR PO 07/29/17 11:15 07/31/17 10:32 Furosemide (Lasix) 40 mg DAILY PO 07/30/17 09:00 07/31/17 10:36 Amoxicillin/ Clavulanate Potassium (Augmentin) 875 mg Q12HR PO 07/30/17 21:00 07/31/17 10:36 Objective Remarks GENERAL: pleasant elderly female, lying in bed in nad. SKIN: Warm and dry. HEAD: Normocephalic. EYES: No injection or drainage. NECK: Supple, trachea midline. CARDIOVASCULAR: Regular rate and rhythm RESPIRATORY: crackles heard at right base. anterior reynaga clear. GASTROINTESTINAL: Abdomen soft, non-tender, nondistended. EXTREMITIES: No cyanosis NEUROLOGICAL: awake and alert. normal speech. Assessment/Plan Problem List: (1) Pulmonary embolism ICD Codes: I26.99 - Other pulmonary embolism without acute cor pulmonale Plan: --on Pradaxa (2) Renal cell carcinoma ICD Codes: C64.9 - Malignant neoplasm of unspecified kidney, except renal pelvis Plan: --Continue on cabozantinib Assessment 82-year-old female with renal cell carcinoma admitted with rib pain found to have pulmonary embolus Plan 1. oncology clear for discharge 2. follow up in clinic with Dr. Jones or More Silverman in 1 week 3. continue supportive care. Attending Statement The exam, history, and the medical decision-making described in the above note were completed with the assistance of the mid-level provider. I reviewed and agree with the findings presented. I attest that I had a [id number] encounter with the patient on the same day, and personally performed and documented my assessment and findings in the medical record. Late entry. Saw pt in am. She is feeling better. Mucositis is stable. No abdominal pain. Pain is controlled with fentanyl patch. Pt can be d/c and f/u oncology clinic. Continue cabozantinib. Problem Qualifiers (1) Pulmonary embolism: Qualified Codes: I26.99 - Other pulmonary embolism without acute cor pulmonale (2) Renal cell carcinoma: Qualified Codes: C64.9 - Malignant neoplasm of unspecified kidney, except renal pelvis Gale Seaman July 31, 2017 11:25 Yousif Jones MD July 31, 2017 15:03
[2017-07-31 12:00] VITALS: BP 132/70; PULSE 76; RESP 17; TEMP 97.5; O2SAT 98
[2017-07-31] MEDS ORDERED: AUGM250S2 PO (12:09)
[2017-07-31] MEDS ORDERED: GENT1SOL TP (12:14)
--- NOTE | 2017-07-31 12:16 | HHI.FF ---
Face to Face Verification Diagnosis: (1) Abnormal CXR (2) Renal cell carcinoma (3) Pulmonary embolism (4) Ascites (5) Anemia (6) Weakness (7) H/O unilateral nephrectomy Physical Therapy Order: Improve ambulation, Strength and gait training Home Health Nursing Order: Medication education-adverse effect Nursing assessment with vital signs I have seen patient Maryana Newman on 07/31/17. My clinical findings support the need for the requested home health care services because: Deconditioned w/ increased weakness Limited ability to care for self Need for psychosocial assistance Infection w/ risk of complications I certify that my clinical findings support that this patient is homebound because: Unsafe to leave home unassisted Unable to use public transportation Juan Morin MD July 31, 2017 12:16
--- NOTE | 2017-07-31 12:21 | HHI.DS ---
Discharge Summary Admission Date Jul 24, 2017 at 15:31 Discharge Date: July 31, 2017 Admitting Diagnosis Pulmonary embolus, renal cancer, (1) Pulmonary embolism ICD Code: I26.99 - Other pulmonary embolism without acute cor pulmonale Diagnosis: Principal (2) Renal cell carcinoma ICD Code: C64.9 - Malignant neoplasm of unspecified kidney, except renal pelvis Diagnosis: Principal (3) Mouth ulcers ICD Code: K12.1 - Other forms of stomatitis (4) Dysphagia ICD Code: R13.10 - Dysphagia, unspecified (5) Aspiration pneumonia ICD Code: J69.0 - Pneumonitis due to inhalation of food and vomit (6) Anemia ICD Code: D64.9 - Anemia, unspecified (7) Ascites ICD Code: R18.8 - Other ascites (8) Weakness ICD Code: R53.1 - Weakness (9) Abnormal CXR ICD Code: R93.8 - Abnormal findings on diagnostic imaging of other specified body structures Procedures Modified barium swallow. Brief History - From Admission 82-year-old female with a history of renal cell carcinoma presents to the ER today after onset of pleuritic pain and shortness of breath. ER workup revealed pulmonary embolisms. She denies any recent lower extremity edema or calf pain. She has been undergoing p.o. chemotherapy for her renal cell carcinoma. 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 During her paracentesis treatments she had excessive bleeding. Her risk of bleeding required that she stop Plavix 2 months ago and more recently she stopped aspirin (1 month ago). Her chief complaint at this time is pain during deep inspiration and general pain with radiation to her left back. Her pain has been difficult to control due to sensitivity to narcotics causing nausea for most that are given. She was recently able to tolerate a small dose of Dilaudid. She points out a rash , under her left breast, which is smooth and pink. Her oncologist is Dr. Yousif Jones. CBC/BMP: 07/30/17 0550 07/30/17 1310 Significant Findings Laboratory Tests Test 07/29/17 05:30 07/30/17 05:50 07/30/17 13:10 07/31/17 05:50 Hematocrit 34.7 % (35.0-46.0) 34.3 % (35.0-46.0) Red Cell Distribution Width 24.0 % (11.6-17.2) 24.0 % (11.6-17.2) Neutrophils (%) (Auto) 73.6 % (16.0-70.0) Activated Partial Thromboplast Time 45.0 SEC (24.3-30.1) 45.3 SEC (24.3-30.1) 42.5 SEC (24.3-30.1) Random Glucose 108 MG/DL (74-106) Total Protein 5.2 GM/DL (6.4-8.2) Albumin 1.9 GM/DL (3.4-5.0) Calcium Level 8.4 MG/DL (8.5-10.1) 8.2 MG/DL (8.5-10.1) Phosphorus Level 2.0 MG/DL (2.5-4.9) Magnesium Level 1.3 MG/DL (1.5-2.5) Alkaline Phosphatase 130 U/L (45-117) Aspartate Amino Transf (AST/SGOT) 39 U/L (15-37) Sodium Level 133 MEQ/L (136-145) 132 MEQ/L (136-145) Potassium Level 3.3 MEQ/L (3.5-5.1) Carbon Dioxide Level 20.7 MEQ/L (21.0-32.0) Estimat Glomerular Filtration Rate 70 ML/MIN (>89) 65 ML/MIN (>89) Hemoglobin 11.5 GM/DL (11.6-15.3) Imaging Last Impressions Modified Barium Swallow 07/31/17 0000 Signed Impressions: Service Date/Time: Monday, July 31, 2017 00:00 - CONCLUSION: No aspiration or penetration seen. Stephen Young MD Chest X-Ray 07/29/17 0000 Signed Impressions: Service Date/Time: Saturday, July 29, 2017 14:43 - CONCLUSION: No significant interval change in bilateral lower lung consolidation. Galdino Baker MD Abdomen Ultrasound 07/28/171999 Signed Impressions: Service Date/Time: Friday, July 28, 2017 08:01 - CONCLUSION: 1. Moderate ascites. Patient has a history of malignant ascites with carcinomatosis. 2. Redemonstration of an exophytic solid mass in the inferior spleen measuring up to 3.7 cm. 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 3. Mildly increased right renal cortical echogenicity which may reflect some degree of medical renal disease. Jin Lara MD Lower Extremity Ultrasound 07/25/17 0000 Signed Impressions: Service Date/Time: Tuesday, July 25, 2017 10:47 - CONCLUSION: 1. Occlusive right calf vein DVT. 2. Partially occlusive left popliteal vein DVT, likely chronic. Jin Lara MD CT Angiography 07/25/17 0000 Signed Impressions: Service Date/Time: Tuesday, July 25, 2017 11:51 - CONCLUSION: 1. Bilateral pulmonary emboli. 2. Multiple areas of consolidation. 3. Small pleural effusion. 4. Moderate amount of ascites in the upper abdomen. Graham Roche MD Lung Scan- Nuclear Medicine 07/24/17 Signed Impressions: Service Date/Time: Monday, July 24, 2017 11:28 - CONCLUSION: Intermediate probability pulmonary embolus. Getachew Cohen MD PE at Discharge AAOx3 Right port covered C/D?I + crackles in RLL, rest is clear to ausculation S1S2 RRR, no MRG abdomen is mildy distended, soft, + ascites Pt update on day of discharge It is that she has trouble swallowing the Augmentin tablet. She also gets does not like the taste of the tablet. I will prescribe Augmentin liquid. Denies chest pain or shortness of breath. Patient states she has been coughing and bringing up sputum. Denies fevers or chills. Pt Condition on Discharge: Stable Discharge Disposition: Disch w/ Home Health Serv Discharge Time: > 30 minutes Discharge Instructions DIET: Follow Instructions for: As Tolerated, No Restrictions Activities you can perform: Regular-No Restrictions, See Additionl Instruction Other Activity Instructions: fu PT instructions Follow up Referrals: Oncology - 3-5 Days with Yousif Jones MD New Medications: Amoxicillin-Clavulanate Liq (Augmentin Liq) 250-62.5 Mg/5 Ml Susp 500 MG PO TID for Infection, #300 ML 0 Refills 500 mg (10 mL). Substitute the 250-62.5 mg/5 ml susp. for the 500 mg tab for adults having difficulty swallowing. Gentian Fidelia Topical (Gentian Fidelia Topical) 1 % Soln 1 UNIT TP TID for ulcers for 3 Days, #1 BOTTLE apply to mouth ulcers 3 times a day for 3 days Hydromorphone (Dilaudid) 2 Mg Tab 2 MG PO Q4H PRN for Pain Management, #20 TAB 0 Refills Amlodipine (Norvasc) 5 Mg Tab 5 MG PO DAILY for Blood Pressure Management, #31 TAB Betamethasone-Clotrimazole Topical (Lotrisone Topical) 1-0.05% Cream 1 APPLIC TOPICAL Q12HR for Infection, #1 TUBE Dabigatran (Pradaxa) 150 Mg Cap 150 MG PO BID for Blood Clot Prevention, #62 CAP Fentanyl Patch 72 HR (Duragesic Patch 72 HR) 25 Mch/Hr Patch 1 PATCH T-DERMAL Q3D for Blood Clot Prevention, #10 PATCH Furosemide (Furosemide) 40 Mg Tab 40 MG PO DAILY for ascites, #30 TAB Levofloxacin (Levaquin) 500 Mg Tablet 500 MG PO DAILY for Infection, #2 TAB Ijzsxnij-Jdlmbbpwcozrtak-Ererhvbua Liq (Magic Mouthwash Adult Liq) 120 Ml Susp 5 ML SWISH-SWAL QID for stomatitis, #1 BOTTLE Continued Medications: Cabozantinib S-Malate (Cabometyx) 60 Mg Tablet Unknown Dose PO DAILY Docusate Sodium (Colace) 100 Mg Capsule 100 MG PO BID for Prevent Constipation, #60 CAP 0 Refills Metoprolol Tartrate (Metoprolol Tartrate) 50 Mg Tab 50 MG PO BID, #60 TAB 0 Refills Pantoprazole (Pantoprazole) 40 Mg Tab 40 MG PO DAILY for Reflux, #30 TAB 0 Refills Wheelchair (Wheelchair) 1 Each Each UNIT TOPICAL DAILY PRN for Weakness, #1 Discontinued Medications: Megestrol ES Liq (Megestrol ES Liq) 625 Mg/5 Ml Susp 10 ML PO DAILY for Improve Appetite, ML 0 Refills Eiyhqvwx-Mivmmzmpjgxncea-Nbbrwkzfm Liq (Magic Mouthwash Adult Liq) 120 Ml Susp 5 ML SWISH-SWAL ACHS for Mouth sores, #120 ML 0 Refills Each 5mL contains: Nystatin 200,000units, Diphenhydramine 4.25mg, Viscous Lidocaine 10mg, Childress syrup 0.8 mL Juan Morin MD July 31, 2017 12:21
[2017-07-31] MEDS ORDERED: FURO20TA PO (12:25)
== END 2017-07-31 14:16 | disposition home health service (06) | DRG 175 ==
LOC: NEPC 09:48 → NEDA 15:31 → N07A 16:24
PROVIDERS: ADMIT Hospitalist; ATTEND Hospitalist
DX: I26.99 Other pulmonary embolism without acute cor pulmonale (principal); J69.0 Pneumonitis due to inhalation of food and vomit; R18.0 Malignant ascites; C79.89 Secondary malignant neoplasm of other specified sites; E87.70 Fluid overload, unspecified; R13.10 Dysphagia, unspecified; I82.532 Chronic embolism and thrombosis of left popliteal vein; B36.9 Superficial mycosis, unspecified; I25.10 Atherosclerotic heart disease of native coronary artery without angina pectoris; I10 Essential (primary) hypertension; B37.2 Candidiasis of skin and nail; E78.5 Hyperlipidemia, unspecified; Z85.528 Personal history of other malignant neoplasm of kidney; Z91.041 Radiographic dye allergy status; Z90.5 Acquired absence of kidney; Z95.5 Presence of coronary angioplasty implant and graft; Z96.651 Presence of right artificial knee joint; Z90.710 Acquired absence of both cervix and uterus; Z80.1 Family history of malignant neoplasm of trachea, bronchus and lung; K12.1 Other forms of stomatitis; K59.00 Constipation, unspecified; Z79.01 Long term (current) use of anticoagulants; E87.6 Hypokalemia; E78.00 Pure hypercholesterolemia, unspecified; F40.240 Claustrophobia; K21.9 Gastro-esophageal reflux disease without esophagitis; D64.9 Anemia, unspecified; T50.2X5A Adverse effect of carbonic-anhydrase inhibitors, benzothiadiazides and other diuretics, initial encounter
CPT/HCPCS: 71045; 71275; 74230; 76700; 78582; 80048; 80053; 80069; 80076; 82272; 82550; 83735; 84100; 84484; 85025; 85027; 85730; 93005; 93970; 94150; 94640; 94664; 96361; 96374; 96375; A9540; A9567; J0780; J1170; J1644; J2405; J7030; J7040; Q9967

== ENCOUNTER 2017-08-14 15:16 | Emergency (ER) | payer MEDICARE, BC ==
[~2017-08-14] VITALS: Ht 154.9 cm; Wt 58.0 kg
[~2017-08-14 15:16] MED LIST changes: +AMLO5 PO; -ASPI81CH6 CHEW; +AUGM250S2 PO; +CABO60TA PO; -CLOP75TA PO; +COLA100C5 PO; +DILA2TAB4 PO; +FENT25T T-DERMAL; +FURO20TA PO; +GENT1SOL TP; +LEVA500T33 PO; -LISI10TA3 PO; +LOTR15T TOPICAL; +MAGICADU2 SWISH-SWAL; +PANT40TA3 PO; +PRAD150C PO; -REGL10TA5 PO; -TRAM50TA PO; -ZOFR8TAB PO
[2017-08-14 15:48] VITALS: BP 137/83; PULSE 99; RESP 24; TEMP 97.2; O2SAT 100
[2017-08-14] MEDS ORDERED: PROC10TA PO (16:07)
[2017-08-14] MEDS ORDERED: APIX5TAB PO (16:07)
[2017-08-14] MEDS ORDERED: METO1TAB9 PO (16:07)
[2017-08-14 16:18] VITALS: BP 171/101; PULSE 98; RESP 17; O2SAT 99
[2017-08-14] MEDS ORDERED: SODIUM CHLORID 0.9% 500 ML INJ 500 ML IV ONE (16:30)
[2017-08-14] MEDS ORDERED: HYDROmorphone HCL PF 0.5 MG/0.5 ML SYRINGE IV PUSH ONE (16:30)
[2017-08-14] MEDS ORDERED: ONDANSETRON HCL 4 MG/2 ML VIAL IVP ONE (16:30)
[2017-08-14] MEDS ORDERED: SODIUM CHLORIDE 0.9% FLUSH 10 ML FLUSH IV FLUSH PRN (16:30)
--- NOTE | 2017-08-14 16:37 | PD ---
HPI Chief Complaint: Abdominal Pain Time Seen by Provider: 16:04 Travel History International Travel<30 days: No Contact w/Intl Traveler<30days: No Traveled to known affect area: No History of Present Illness HPI 82-year-old female presents to the emergency department for worsening epigastric abdominal pain. Patient sees Dr. Yousif Jones for metastatic renal cell carcinoma. She reports history of hypertension. She has also history of left nephrectomy, hysterectomy, cholecystectomy. She reports history of ascites and is concerned she may have worsening ascites. She was recently admitted and found to have a pulmonary embolism. She is currently on Eliquis. Patient denies any fevers or chills. She denies any chest pain or shortness of breath. She reports nausea and vomiting. No diarrhea or constipation. Patient rates the pain 10/10, pressure, no radiation. She states the pain worsened 2 days ago. Moderate severity. PFSH Past Medical History Arthritis: Yes Asthma: No Autoimmune Disease: No Blood Disorders: Yes Anxiety: Yes Depression: No Heart Rhythm Problems: No Cancer: Yes (Kidney) Cardiovascular Problems: Yes (LEFT BBB) High Cholesterol: Yes Chemotherapy: Yes Chest Pain: No Congestive Heart Failure: No COPD: No Cerebrovascular Accident: No Diabetes: No Endocrine: No Gastrointestinal Disorders: Yes ( ACID REFLUX ) GERD: Yes Genitourinary: No Hepatitis: No Hiatal Hernia: No Hypertension: Yes Immune Disorder: No Implanted Vascular Access Dvce: Yes Kidney Stones: No Medical other: Yes (HIGH CHOLESTEROL, R CAROTID STENOSIS) Musculoskeletal: Yes ( OSTEOARTHRITIS, HX OF LOWER BACK SX 2000, R ROTATOR CUFF ) Neurologic: Yes (BELLS PALSY X 1 -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, MINDY CARPAL TUNNEL) Psychiatric: Yes (CLAUSTROPHOBIC) Reproductive: No Respiratory: No Immunizations Current: Yes Migraines: No Radiation Therapy: Yes Renal Failure: No Seizures: No Sickle Cell Disease: No Sleep Apnea: No Thyroid Disease: No Ulcer: No Tetanus Vaccination: Unknown Influenza Vaccination: No Past Surgical History Abdominal Surgery: Yes (CHOLECYSTECTOMY;) AICD: No Appendectomy: Yes Arteriovenous Shunt: No Body Medical Devices: 1 SCREW LEFT ANKLE Cardiac Surgery: Yes (cardiac stents) Cholecystectomy: Yes Ear Surgery: No Endocrine Surgery: No Eye Surgery: Yes (R EYE CATARACT SURGERY 2012) Genitourinary Surgery: No Gynecologic Surgery: Yes (1979 ABDOMINAL HYSTERECTOMY) Insulin Pump: No Joint Replacement: Yes (RIGHT KNEE) Oral Surgery: Yes (TONSILLECTOMY 194) Pacemaker: No Thoracic Surgery: No Other Surgery: Yes Social History Alcohol Use: No Tobacco Use: No Substance Use: No Allergies-Medications (Allergen,Severity, Reaction): Coded Allergies: doxycycline (Unverified Allergy, Severe, BURNING ABD SWELLING THROAT, 08/14) minocycline (Unverified Allergy, Severe, BURNING ABD SWELLING THROAT, 08/14) tigecycline (Unverified Allergy, Severe, BURNING ABD SWELLING THROAT, 08/14) Sulfa (Sulfonamide Antibiotics) (Unverified Allergy, Mild, PT NOT SURE, ) PATIENT STATES THAT SHE WAS ON FOR 4 WEEKS AND HAD TO QUIT D/T SICK TO STOMACH tetracycline (Verified Allergy, Unknown, 08/14/17) morphine (Unverified Adverse Reaction, Severe, 08/14/17) HYPERACTIVE AND CAN'T EAT ANY FOOD Reported Meds & Prescriptions Reported Meds & Active Scripts Active Reported Eliquis (Apixaban) 5 Mg Tab 5 Mg PO BID Metoprolol Succinate ER 24 HR (Metoprolol Succinate) 50 Mg Tab 50 Mg PO DAILY Prochlorperazine Maleate 10 Mg Tab 10 Mg PO Q6H PRN Review of Systems Except as stated in HPI: all other systems reviewed are Neg Physical Exam Narrative GENERAL: Well-nourished, well-developed elderly patient, afebrile. SKIN: Focused skin assessment warm/dry. HEAD: Normocephalic. Atraumatic EYES: No scleral icterus. No injection or drainage. NECK: Supple, trachea midline. No JVD or lymphadenopathy. CARDIOVASCULAR: Regular rate and rhythm without murmurs, gallops, or rubs. RESPIRATORY: Breath sounds equal bilaterally. No accessory muscle use. Lung sounds are clear to auscultation peer GASTROINTESTINAL: Abdomen distended, tender to palpation over the epigastric region. Patient is nauseated and dry heaving upon my exam. MUSCULOSKELETAL: No cyanosis, or edema. BACK: Nontender without obvious deformity. No CVA tenderness. Data Data Last Documented VS Vital Signs Date Time Temp Pulse Resp B/P (MAP) Pulse Ox O2 Delivery O2 Flow Rate FiO2 08/14/17 17:30 97 18 180/78 (112) 99 Room Air 08/14/17 15:48 97.2 Orders Orders Complete Blood Count With Diff (08/14/17 16:25) Comprehensive Metabolic Panel (08/14/17 16:25) Lipase (08/14/17 16:25) Prothrombin Time / Inr (Pt) (08/14/17 16:25) Act Partial Throm Time (Ptt) (08/14/17 16:25) Urinalysis - C+S If Indicated (08/14/17 16:25) Ct Abd/Pel W/O Iv Contrast (08/14/17 16:25) Iv Access Insert/Monitor (08/14/17 16:25) Ecg Monitoring (08/14/17 16:25) Oximetry (08/14/17 16:25) Sodium Chloride 0.9% Flush (Ns Flush) (08/14/17 16:30) Electrocardiogram (08/14/17 16:25) Sodium Chlorid 0.9% 500 Ml Inj (Ns 500 M (08/14/17 16:30) Hydromorphone Pf Inj (Dilaudid Pf Inj) (08/14/17 16:30) Ondansetron Odt (Zofran Odt) (08/14/17 17:15) Urine Culture (08/14/17 17:54) Cephalexin (Keflex) (08/14/17 19:15) Labs Laboratory Tests Test 08/14/17 17:21 08/14/17 17:54 White Blood Count 5.5 TH/MM3 Red Blood Count 4.23 MIL/MM3 Hemoglobin 12.1 GM/DL Hematocrit 36.3 % Mean Corpuscular Volume 85.8 FL Mean Corpuscular Hemoglobin 28.7 PG Mean Corpuscular Hemoglobin Concent 33.5 % Red Cell Distribution Width 24.0 % Platelet Count 281 TH/MM3 Mean Platelet Volume 8.2 FL Neutrophils (%) (Auto) 69.8 % Lymphocytes (%) (Auto) 22.1 % Monocytes (%) (Auto) 6.7 % Eosinophils (%) (Auto) 0.6 % Basophils (%) (Auto) 0.8 % Neutrophils # (Auto) 3.9 TH/MM3 Lymphocytes # (Auto) 1.2 TH/MM3 Monocytes # (Auto) 0.4 TH/MM3 Eosinophils # (Auto) 0.0 TH/MM3 Basophils # (Auto) 0.0 TH/MM3 CBC Comment DIFF FINAL Differential Comment Prothrombin Time 12.7 SEC Prothromb Time International Ratio 1.3 RATIO Activated Partial Thromboplast Time 35.9 SEC Blood Urea Nitrogen 20 MG/DL Creatinine 0.78 MG/DL Random Glucose 103 MG/DL Total Protein 5.4 GM/DL Albumin 2.3 GM/DL Calcium Level 8.4 MG/DL Alkaline Phosphatase 107 U/L Aspartate Amino Transf (AST/SGOT) 44 U/L Alanine Aminotransferase (ALT/SGPT) 15 U/L Total Bilirubin 1.1 MG/DL Sodium Level 137 MEQ/L Potassium Level 3.8 MEQ/L Chloride Level 104 MEQ/L Carbon Dioxide Level 19.1 MEQ/L Anion Gap 14 MEQ/L Estimat Glomerular Filtration Rate 70 ML/MIN Lipase 73 U/L Urine Color YELLOW Urine Turbidity CLEAR Urine pH 6.0 Urine Specific [place] 1.029 Urine Protein 100 mg/dL Urine Glucose (UA) 100 mg/dL Urine Ketones TRACE mg/dL Urine Occult Blood MOD Urine Nitrite NEG Urine Bilirubin MOD Urine Urobilinogen 1.0 MG/DL Urine Leukocyte Esterase SMALL Urine RBC 19 /hpf Urine WBC /hpf Urine Squamous Epithelial Cells 20 /hpf Urine Calcium Oxalate Crystals MANY /hpf Urine Amorphous Sediment RARE Urine Bacteria FEW /hpf Urine Hyaline Casts 5 /lpf Urine Mucus FEW /lpf Microscopic Urinalysis Comment CULTURE INDICATED MDM Medical Decision Making Medical Screen Exam Complete: Yes Emergency Medical Condition: Yes Medical Record Reviewed: Yes Differential Diagnosis Malignant ascites versus renal cell carcinoma versus pancreatitis versus chronic pain versus electrolyte abnormality versus dehydration Narrative Course 82-year-old female presents to the emergency department for worsening upper abdominal pain. She is currently being treated for renal cell carcinoma and has a history of malignant ascites. She was recently admitted for pulmonary embolism and is currently on Eliquis. EKG, CBC, CMP, lipase, PTT, PT/INR, UA are ordered and pending. CT abdomen/pelvis without contrast is ordered and pending. Patient is given normal saline 500 mL bolus, Zofran 4 mg IV, Dilaudid 0.5 mg IV for pain. EKG shows atrial fibrillation, rate controlled. CBC shows no acute abnormality. CMP shows BUN 20, bilirubin 1.1. Lipase is 73. PT is 12.7, INR is 1.3, PTT is 35.9. UA shows 19 RBC, innumerable WBCs, few bacteria. CT abdomen/pelvis shows New small right pleural effusion with right lower lobe and lingular infiltrates. I cannot exclude an infectious etiology; Mixed appearance to the patient's carcinomatosis when compared to the prior study. The peritoneal implants within the right upper quadrant as well as the retroperitoneal lymph nodes are considerably smaller. Omental caking and nodularity on the current study is a new finding from the prior study. Overall the volume of ascites is similar; 3.4 cm nonspecific mass involving the spleen. I cannot exclude a metastasis; Prior left nephrectomy. I discussed the results with my attending physician, Dr. Ernst, who discussed the results with the patient. He offerred admission, but she would like to go home. She is to follow up with Dr. Jones. She verbalizes agreement. Patient will be started on Keflex for UTI. She is given her first dose here. Diagnosis Primary Impression: Abdominal pain Qualified Codes: R10.13 - Epigastric pain Additional Impressions: Renal cell carcinoma Qualified Codes: C64.9 - Malignant neoplasm of unspecified kidney, except renal pelvis Urinary tract infection Qualified Codes: N30.01 - Acute cystitis with hematuria Referrals: Yousif Jones MD 1 day Patient Instructions: Abdominal Pain (ED), General Instructions Additional Instructions: Take antibiotic as directed for UTI. Follow up with Dr. Jones Return to the emergency department for any acute, worsening of symptoms. Med/Other Pt SpecificInfo: Prescription(s) given, No Change to Meds Scripts Cephalexin (Keflex) 500 Mg Capsule 500 MG PO Q8H for Infection for 7 Days, #21 CAP 0 Refills Prov: Emy Quiroga 08/14/17 Disposition: DISCHARGE HOME Condition: Stable Emy Quiroga August 14, 2017 16:36
[2017-08-14] MEDS ORDERED: ONDANSETRON ODT 4 MG TAB PO ONE (17:15)
[2017-08-14 17:22] VITALS: BP 180/78; PULSE 97; RESP 15; O2SAT 99
[2017-08-14 17:30] VITALS: BP 180/78; PULSE 97; RESP 18; O2SAT 99
[2017-08-14 17:50] LABS: AUTOMATED NEUTROPHIL # 3.9 TH/MM3 (1.8-7.7); BASOPHIL % 0.8 % (0.0-2.0); EOSINOPHIL % 0.6 % (0.0-4.0); HEMATOCRIT 36.3 % (35.0-46.0); HEMOGLOBIN 12.1 GM/DL (11.6-15.3); LYMPH % 22.1 % (9.0-44.0); LYMPHOCYTE # 1.2 TH/MM3 (1.0-4.8); MEAN CELL VOLUME 85.8 FL (80.0-100.0); MEAN CORPUSCULAR HEMOGLOBIN 28.7 PG (27.0-34.0); MEAN CORPUSCULAR HGB CONC 33.5 % (32.0-36.0); MEAN PLATELET VOLUME 8.2 FL (7.0-11.0); MONO % 6.7 % (0.0-8.0); MONOCYTE # 0.4 TH/MM3 (0-0.9); NEUT % 69.8 % (16.0-70.0); PLATELET COUNT 281 TH/MM3 (150-450); RED BLOOD COUNT 4.23 MIL/MM3 (4.00-5.30); WHITE BLOOD COUNT 5.5 TH/MM3 (4.0-11.0)
[2017-08-14 17:59] LABS: INTERNATIONAL NORMALIZED RATIO 1.3 RATIO; PROTHROMBIN TIME - PATIENT 12.7 SEC (9.8-11.6)
--- NOTE | 2017-08-14 18:09 | RADRPT ---
EXAM DATE/TIME: 08/14/2017 17:33 [place] COMPARISON: CT ABDOMEN & PELVIS W/O CONTRAST, May 02, 2017, 20:57. INDICATIONS : Abdomen pain with nausea and vomiting. ORAL CONTRAST: No oral contrast ingested. RADIATION DOSE: 6.85 CTDIvol (mGy) MEDICAL HISTORY : Cardiovascular disease. Hypertension. Kidney cancer SURGICAL HISTORY : Appendectomy. Cholecystectomy.Nephrectomy, left.Hysterectomy ENCOUNTER: Initial ACUITY: 1 day PAIN SCALE: 10/10 LOCATION: Abdomen TECHNIQUE: Volumetric scanning of the abdomen and pelvis was performed. Using automated exposure control and ad justment of the mA and/or kV according to patient size, radiation dose was kept as low as reasonably achievable to obtain optimal diagnostic quality images. DICOM format image data is available electro nically for review and comparison. FINDINGS: LOWER LUNGS: There is a small posterior layering right pleural effusion with associated right lower lobe consolida tion. Consolidation also noted within the lingula. This is all new from the prior study. LIVER: Homogeneous density without lesion. There is no dilation of the biliary tree. Gallbladder is surgica lly absent. SPLEEN: A partially calcified mass is suspected involving anterior aspects of the spleen. This measures 3.4 c m. This is stable from the prior study. PANCREAS: Within normal limits. KIDNEYS: The left kidney is surgically absent. The right kidney is unremarkable on this unenhanced study. ADRENAL GLANDS: Within normal limits. VASCULAR: Calcified plaque throughout the abdominal aorta. No aneurysmal change. BOWEL/MESENTERY: Again seen is moderate volume ascites. Diffuse thickening and nodularity to the omentum is a new find ing from the prior examination. The peritoneal implants involving the right upper quadrant on the lizette or study have significantly improved. Only small areas of residual linear soft tissue remain in these areas. The largest residual peritoneal implant is posteriorly and measures 2.4 x 1.3 cm. This was mu ch larger on the prior study and nearly confluent with the other nodules. No dilatation of the bowel loops. No free air. ABDOMINAL WALL: Within normal limits. RETROPERITONEUM: The retroperitoneal adenopathy has significantly improved from the prior exam. There is a residual re troperitoneal lymph node projecting to the left of the aorta the measures 13 x 10 mm. This is smaller from the prior study where it measured 15 x 13 mm. Much smaller tiny residual retroperitoneal lymph nodes are noted. These are smaller than the prior exam. BLADDER: No wall thickening or mass. REPRODUCTIVE: Within normal limits. INGUINAL: There is no lymphadenopathy or hernia. MUSCULOSKELETAL: Within normal limits for patient age. CONCLUSION: 1. New small right pleural effusion with right lower lobe and lingular infiltrates. I cannot exclude an infectious etiology. 2. 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 The peritoneal implants within the right upper quadrant as well as the retroperitoneal lymph nodes are considerably smaller. Omental caking and nodularity on the current study is a new finding from the prior study. Ov erall the volume of ascites is similar. 3. 3.4 cm nonspecific mass involving the spleen. I cannot exclude a metastasis. 4. Prior left nephrectomy. Getachew Harrington Jr., MD on August 14, 2017 at 17:56 Board Certified Radiologist. This report was verified electronically.
[2017-08-14 18:12] LABS: ALBUMIN 2.3 GM/DL (3.4-5.0); AST (GOT) 44 U/L (15-37); BICARBONATE 19.1 MEQ/L (21.0-32.0); BLOOD UREA NITROGEN 20 MG/DL (7-18); CALCIUM 8.4 MG/DL (8.5-10.1); CHLORIDE 104 MEQ/L (98-107); CREATININE 0.78 MG/DL (0.50-1.00); GLOMERULAR FILTRATION RATE 70 ML/MIN (>89); GLUCOSE,RANDOM 103 MG/DL (74-106); SODIUM (NA) 137 MEQ/L (136-145)
[2017-08-14 18:23] LABS: ALKALINE PHOSPHATASE 107 U/L (45-117); ALT (GPT) 15 U/L (10-53); TOTAL BILIRUBIN ADULT 1.1 MG/DL (0.2-1.0); TOTAL PROTEIN 5.4 GM/DL (6.4-8.2)
[2017-08-14 18:39] LABS: BILIRUBIN, URINE MOD (NEG); BLOOD, URINE MOD (NEG); GLUCOSE,URINE 100 mg/dL (NEG); KETONE, URINE TRACE mg/dL (NEG); NITRITE,URINE NEG (NEG); URINE COLOR YELLOW (YELLW/STRAW); URINE LEUKOCYTE ESTERASE SMALL (NEG)
--- NOTE | 2017-08-14 18:49 | PD ---
Data Data Last Documented VS Vital Signs Date Time Temp Pulse Resp B/P (MAP) Pulse Ox O2 Delivery O2 Flow Rate FiO2 08/14/17 17:30 97 18 180/78 (112) 99 Room Air 08/14/17 15:48 97.2 Orders Orders Complete Blood Count With Diff (08/14/17 16:25) Comprehensive Metabolic Panel (08/14/17 16:25) Lipase (08/14/17 16:25) Prothrombin Time / Inr (Pt) (08/14/17 16:25) Act Partial Throm Time (Ptt) (08/14/17 16:25) Urinalysis - C+S If Indicated (08/14/17 16:25) Ct Abd/Pel W/O Iv Contrast (08/14/17 16:25) Iv Access Insert/Monitor (08/14/17 16:25) Ecg Monitoring (08/14/17 16:25) Oximetry (08/14/17 16:25) Sodium Chloride 0.9% Flush (Ns Flush) (08/14/17 16:30) Electrocardiogram (08/14/17 16:25) Sodium Chlorid 0.9% 500 Ml Inj (Ns 500 M (08/14/17 16:30) Hydromorphone Pf Inj (Dilaudid Pf Inj) (08/14/17 16:30) Ondansetron Odt (Zofran Odt) (08/14/17 17:15) Labs Laboratory Tests Test 08/14/17 17:21 08/14/17 17:54 White Blood Count 5.5 TH/MM3 Red Blood Count 4.23 MIL/MM3 Hemoglobin 12.1 GM/DL Hematocrit 36.3 % Mean Corpuscular Volume 85.8 FL Mean Corpuscular Hemoglobin 28.7 PG Mean Corpuscular Hemoglobin Concent 33.5 % Red Cell Distribution Width 24.0 % Platelet Count 281 TH/MM3 Mean Platelet Volume 8.2 FL Neutrophils (%) (Auto) 69.8 % Lymphocytes (%) (Auto) 22.1 % Monocytes (%) (Auto) 6.7 % Eosinophils (%) (Auto) 0.6 % Basophils (%) (Auto) 0.8 % Neutrophils # (Auto) 3.9 TH/MM3 Lymphocytes # (Auto) 1.2 TH/MM3 Monocytes # (Auto) 0.4 TH/MM3 Eosinophils # (Auto) 0.0 TH/MM3 Basophils # (Auto) 0.0 TH/MM3 CBC Comment DIFF FINAL Differential Comment Prothrombin Time 12.7 SEC Prothromb Time International Ratio 1.3 RATIO Activated Partial Thromboplast Time 35.9 SEC Blood Urea Nitrogen 20 MG/DL Creatinine 0.78 MG/DL Random Glucose 103 MG/DL Total Protein 5.4 GM/DL Albumin 2.3 GM/DL Calcium Level 8.4 MG/DL Alkaline Phosphatase 107 U/L Aspartate Amino Transf (AST/SGOT) 44 U/L Alanine Aminotransferase (ALT/SGPT) 15 U/L Total Bilirubin 1.1 MG/DL Sodium Level 137 MEQ/L Potassium Level 3.8 MEQ/L Chloride Level 104 MEQ/L Carbon Dioxide Level 19.1 MEQ/L Anion Gap 14 MEQ/L Estimat Glomerular Filtration Rate 70 ML/MIN Lipase 73 U/L MDM Supervised Visit with PATRICE: Yes Narrative Course I, Dr. Ernst, have reviewed the advance practice practitioner's documentation and am in agreement, met with the patient face to face, made the diagnosis, and the medical decision making was done by me. *My assessment and Findings: I had an extensive discussion with the patient and family at bedside. I reviewed the entirety of the workup. Patient has generalized weakness and is taking a break from chemo and is deciding whether she wants to continue with it. She has metastatic cancer with omental caking. I offered her hospitalization but she would rather go home. I do not think a night in the hospital is going to change her overall status will be of much benefit to her. She plans to follow-up with her oncologist. She has pain medicine at home. She has [id number] support at home. Diagnosis Primary Impression: Abdominal pain Qualified Codes: R10.13 - Epigastric pain Additional Impression: Renal cell carcinoma Qualified Codes: C64.9 - Malignant neoplasm of unspecified kidney, except renal pelvis Referrals: Yousif Jones MD 1 day Patient Instructions: General Instructions, Abdominal Pain (ED) Additional Instruction: Follow up with Dr. Jones Return to the emergency department for any acute, worsening of symptoms. Disposition: 01 DISCHARGE HOME Condition: Stable Tho Ernst MD August 14, 2017 18:49
[2017-08-14 19:01] LABS: AMORPHOUS SEDIMENT, URINE RARE; BACTERIA, URINE FEW /hpf; CALCIUM OXALATE CRYSTALS,URINE MANY /hpf; HYALINE CAST, URINE 5 /lpf (RARE); MUCUS URINE FEW /lpf (OCC); SQUAMOUS EPITHELIAL CELL URINE 20 /hpf (0-5)
[2017-08-14] MEDS ORDERED: CEPH-460 PO (19:12)
[2017-08-14] MEDS ORDERED: CEPHALEXIN MONOHYDRATE 500 MG CAP PO ONE (19:15)
--- NOTE | 2017-08-15 16:23 | EKG ---
Date Performed: 08/14/2017 Time Performed: 17:58:01 PTAGE: 82 years EKG: ATRIAL FIBRILLATION MARKED LEFT AXIS DEVIATION INTRAVENTRICULAR CONDUCTION DELAY POSSIBLE A NTERIOR MYOCARDIAL INFARCTION ABNORMAL ECG when compared to prior ekg, patient is now in atrial fibri llation. PREVIOUS TRACING : 07/24/2017 10.51 DOCTOR: Vinicius Cisneros Interpretating Date/Time 08/15/2017 16:22:24
== END 2017-08-14 21:21 | disposition home or self-care (01) ==
LOC: NEPC 15:16
DX: C64.9 Malignant neoplasm of unspecified kidney, except renal pelvis (principal); R10.13 Epigastric pain; N30.01 Acute cystitis with hematuria; I10 Essential (primary) hypertension
CPT/HCPCS: 74176; 80053; 81001; 83690; 85025; 85610; 85730; 87077; 87086; 87186; 93005; 96361; 96374; 99285; J1170; J1642; J7040

== ENCOUNTER 2017-08-17 13:12 | Day surgery (SDC) | payer MEDICARE, BC ==
[~2017-08-17 13:12] MED LIST changes: -AMLO5 PO; +APIX5TAB PO; -AUGM250S2 PO; -CABO60TA PO; +CEPH-460 PO; -COLA100C5 PO; -DILA2TAB4 PO; -FENT25T T-DERMAL; -FURO20TA PO; -GENT1SOL TP; -LEVA500T33 PO; -LOTR15T TOPICAL; -MAGICADU2 SWISH-SWAL; +METO1TAB9 PO; -METO50TA PO; -PANT40TA3 PO; -PRAD150C PO; +PROC10TA PO; -WHEE1EAC TOPICAL
[2017-08-17 13:40] VITALS: BP 160/78; PULSE 82; RESP 16; TEMP 97; O2SAT 97
[2017-08-17 15:10] VITALS: BP 115/60; PULSE 86; RESP 18; TEMP 97.5; O2SAT 99
[2017-08-17 15:30] VITALS: BP 111/60; PULSE 79; RESP 16; O2SAT 98
[2017-08-17 16:00] VITALS: BP 132/65; PULSE 90; RESP 16; O2SAT 99
[2017-08-17] MEDS ORDERED: ALBUMIN 25% INJ 50 ML IV ONE (16:00)
[2017-08-17] MEDS ORDERED: ALBUMIN 25% INJ 100 ML IV ONE (16:00)
[2017-08-17 16:17] VITALS: BP 115/56; PULSE 86; RESP 16; O2SAT 98
[2017-08-18] MEDS ORDERED: LIDOCAINE HCL 1% 20 ML VIAL ONE (08:24)
--- NOTE | 2017-08-18 13:54 | RADRPT ---
EXAM DATE: 08/17/2017 3:02 PM EDT AGE/SEX: 82 years / Female INDICATIONS: Ascites. CLINICAL DATA: This is the patient's initial encounter. Patient reports that signs and symptoms have been present for 4 - 6 months and indicates a pain score of 3/10. MEDICAL/SURGICAL HISTORY: . Hypertension. Renal cancer. Chemotherapy. . Nephrectomy. Hysterec shoshana. Cholecystectomy. COMPARISON: [facility] [place], [place] GUIDED ABD PARACENTESIS, 05/03/2017. . FLUID: Total volume of 6000 cc of cloudy, red fluid was removed. Fluid was discarded. Thoracentesis was ther apeutic only. . . TECHNIQUE: Ultrasound guidance for abdominal paracentesis. Paracentesis. The risks, benefits, and alternatives to ultrasound guided paracentesis were explained to the patient in detail including the risk of bleeding and infection. Written and verbal informed consent was obt ained. With the patient on the ultrasound table, ultrasound imaging was used to select the most appropriate approach for paracentesis. Overlying skin was prepped and draped in the usual sterile fashion and wi th a local anesthetic, a dermatotomy was made with an 11 blade scalpel. A 6 [place] [id number] ca theter was introduced into the peritoneal cavity and fluid was collected. Post procedure scanning reveals no hematoma or other complication. The patient tolerated the procedu re well and left the ultrasound suite in stable condition. CONCLUSION: Uncomplicated ultrasound-guided paracentesis Electronically signed by: Romain Quintero MD 08/18/2017 1:52 PM EDT
== END 2017-08-17 17:54 | disposition home or self-care (01) ==
LOC: HRAD 13:12 → HRIP 13:15 → HRAD 17:54
PROVIDERS: ATTEND Internal Medicine Hematology & Oncology
DX: R18.8 Other ascites (principal); I10 Essential (primary) hypertension; C64.9 Malignant neoplasm of unspecified kidney, except renal pelvis
CPT/HCPCS: 49083; C1729; P9047

== ENCOUNTER 2017-09-02 11:17 | Emergency (ER) | payer MEDICARE, BC ==
[~2017-09-02] VITALS: Ht 157.5 cm; Wt 60.0 kg
[2017-09-02 11:20] VITALS: BP 130/81; PULSE 98; RESP 16; O2SAT 100
[2017-09-02] MEDS ORDERED: SODIUM CHLORIDE 0.9% FLUSH 10 ML FLUSH IV FLUSH PRN (11:30)
--- NOTE | 2017-09-02 11:37 | PD ---
HPI Chief Complaint: Abdominal Pain Time Seen by Provider: 11:25 Travel History International Travel<30 days: No Contact w/Intl Traveler<30days: No Traveled to known affect area: No History of Present Illness HPI Patient is an 82-year-old female presented to emerge from for evaluation of abdominal pain and bloating. Patient states it started Monday, she states is uncomfortable, she does not rate her pain. Pain is constant. Patient reports occasional diarrhea. Patient has a history of renal cancer and is currently on oral chemotherapy daily. She is followed by Dr. Jones. Patient has a history of therapeutic paracentesis due to ascites. Patient denies any fever or chills , vomiting, chest pain or shortness of breath. She does report feeling nauseated times. Decreased appetite. Symptom onset was gradual, symptoms are moderate in nature. There are no alleviating factors. Patient is on Eliquis, she did not take a dose last night or this morning per her daughter's report. PFSH Past Medical History Hx Anticoagulant Therapy: Yes (Eliquis) Arthritis: Yes Anxiety: Yes Cancer: Yes (Kidney) Cardiovascular Problems: Yes (LEFT BBB) High Cholesterol: Yes Chemotherapy: Yes GERD: Yes Hypertension: Yes Implanted Vascular Access Dvce: Yes (Right chest port) Neurologic: Yes (BELLS PALSY X 1 -1950, MINDY CARPAL TUNNEL) Immunizations Current: Yes Migraines: No Radiation Therapy: Yes Renal Failure: No Seizures: No Sickle Cell Disease: No Sleep Apnea: No Thyroid Disease: No Ulcer: No Past Surgical History Appendectomy: Yes Body Medical Devices: 1 SCREW LEFT ANKLE Cholecystectomy: Yes Coronary Stent: Yes Eye Surgery: Yes (R EYE CATARACT SURGERY 2012) Hysterectomy: Yes Joint Replacement: Yes (RIGHT KNEE) Tonsillectomy: Yes Other Surgery: Yes Social History Alcohol Use: No Tobacco Use: No Substance Use: No Allergies-Medications (Allergen,Severity, Reaction): Coded Allergies: doxycycline (Unverified Allergy, Severe, BURNING ABD SWELLING THROAT, ) minocycline (Unverified Allergy, Severe, BURNING ABD SWELLING THROAT, ) tigecycline (Unverified Allergy, Severe, BURNING ABD SWELLING THROAT, ) Sulfa (Sulfonamide Antibiotics) (Unverified Allergy, Mild, PT NOT SURE, 09/02/17) PATIENT STATES THAT SHE WAS ON FOR 4 WEEKS AND HAD TO QUIT D/T SICK TO STOMACH tetracycline (Verified Allergy, Unknown, 09/02/17) morphine (Unverified Adverse Reaction, Severe, 09/02/17) HYPERACTIVE AND CAN'T EAT ANY FOOD Reported Meds & Prescriptions Reported Meds & Active Scripts Active Reported Lorazepam 1 Mg Tab 0.5 Mg PO BID PRN Ondansetron Odt 8 Mg Tab 8 Mg SL Q8H PRN Hydromorphone (Hydromorphone HCl) 2 Mg Tab 2 Mg PO Q4H PRN Cabometyx (Cabozantinib S-Malate) 20 Mg Tablet 60 Mg PO DAILY Eliquis (Apixaban) 5 Mg Tab 5 Mg PO BID Metoprolol Succinate ER 24 HR (Metoprolol Succinate) 50 Mg Tab 50 Mg PO DAILY Prochlorperazine Maleate 10 Mg Tab 10 Mg PO Q6H PRN Review of Systems Except as stated in HPI: all other systems reviewed are Neg General / Constitutional: No: Fever, Chills Cardiovascular: No: Chest Pain or Discomfort Respiratory: No: Shortness of Breath Gastrointestinal: Positive: Nausea, Diarrhea, Abdominal Pain, Loss of Appetite , No: Vomiting Genitourinary: No: Dysuria Physical Exam Narrative GENERAL: Thin, well-developed, alert elderly female. Appears uncomfortable, in no acute distress. SKIN: Warm and dry. HEAD: Atraumatic. Normocephalic. EYES: Pupils equal and round. No scleral icterus. No injection or drainage. ENT: No nasal bleeding or discharge. Mucous membranes pink and moist. NECK: Trachea midline. No JVD. CARDIOVASCULAR: Regular rate and rhythm. RESPIRATORY: No accessory muscle use. Clear to auscultation. Breath sounds equal bilaterally. GASTROINTESTINAL: Abdomen soft, mildly tender to palpation diffusely, hypoactive bowel sounds, no rebound, no guarding. MUSCULOSKELETAL: Extremities without clubbing, cyanosis, or edema. No obvious deformities. NEUROLOGICAL: Awake and alert. No obvious cranial nerve deficits. Motor grossly within normal limits. Five out of 5 muscle strength in the arms and legs. Normal speech. PSYCHIATRIC: Appropriate mood and affect; insight and judgment normal. Data Data Last Documented VS Vital Signs Date Time Temp Pulse Resp B/P (MAP) Pulse Ox O2 Delivery O2 Flow Rate FiO2 09/02/17 13:15 97.6 81 20 98 09/02/17 12:09 Room Air 09/02/17 11:20 130/81 (97) Orders Orders Complete Blood Count With Diff (09/02/17 11:25) Comprehensive Metabolic Panel (09/02/17 11:25) Lipase (09/02/17 11:25) Lactic Acid (09/02/17 11:25) Prothrombin Time / Inr (Pt) (09/02/17 11:25) Act Partial Throm Time (Ptt) (09/02/17 11:25) Urinalysis - C+S If Indicated (09/02/17 11:25) Iv Access Insert/Monitor (09/02/17 11:25) Ecg Monitoring (09/02/17 11:25) Oximetry (09/02/17 11:25) Sodium Chloride 0.9% Flush (Ns Flush) (09/02/17 11:30) Ct Abd/Pel W/O Iv Contrast (09/02/17 ) Sodium Chlor 0.9% 1000 Ml Inj (Ns 1000 M (09/02/17 11:45) Lorazepam Inj (Ativan Inj) (09/02/17 12:30) Ed Discharge Order (09/02/17 13:20) Heparin Central Flush (Heparin Central F (09/02/17 13:45) Urine Culture (09/02/17 12:46) Labs Laboratory Tests Test 09/02/17 12:00 09/02/17 12:46 White Blood Count 6.1 TH/MM3 Red Blood Count 4.89 MIL/MM3 Hemoglobin 14.2 GM/DL Hematocrit 42.5 % Mean Corpuscular Volume 87.0 FL Mean Corpuscular Hemoglobin 29.0 PG Mean Corpuscular Hemoglobin Concent 33.3 % Red Cell Distribution Width 23.6 % Platelet Count 275 TH/MM3 Mean Platelet Volume 7.7 FL Neutrophils (%) (Auto) 64.9 % Lymphocytes (%) (Auto) 28.6 % Monocytes (%) (Auto) 5.7 % Eosinophils (%) (Auto) 0.1 % Basophils (%) (Auto) 0.7 % Neutrophils # (Auto) 3.9 TH/MM3 Lymphocytes # (Auto) 1.7 TH/MM3 Monocytes # (Auto) 0.3 TH/MM3 Eosinophils # (Auto) 0.0 TH/MM3 Basophils # (Auto) 0.0 TH/MM3 CBC Comment DIFF FINAL Differential Comment Prothrombin Time 11.5 SEC Prothromb Time International Ratio 1.1 RATIO Activated Partial Thromboplast Time 33.3 SEC Blood Urea Nitrogen 21 MG/DL Creatinine 0.96 MG/DL Random Glucose 101 MG/DL Total Protein 5.1 GM/DL Albumin 2.1 GM/DL Calcium Level 8.5 MG/DL Alkaline Phosphatase 131 U/L Aspartate Amino Transf (AST/SGOT) 72 U/L Alanine Aminotransferase (ALT/SGPT) 33 U/L Total Bilirubin 0.9 MG/DL Sodium Level 134 MEQ/L Potassium Level 4.2 MEQ/L Chloride Level 101 MEQ/L Carbon Dioxide Level 18.7 MEQ/L Anion Gap 14 MEQ/L Estimat Glomerular Filtration Rate 55 ML/MIN Lactic Acid Level 2.0 mmol/L Lipase 71 U/L Urine Color DARK-YELLOW Urine Turbidity HAZY Urine pH 6.0 Urine Specific [place] 1.031 Urine Protein 300 mg/dL Urine Glucose (UA) NEG mg/dL Urine Ketones 10 mg/dL Urine Occult Blood TRACE Urine Nitrite NEG Urine Bilirubin NEG Urine Urobilinogen 2.0 MG/DL Urine Leukocyte Esterase LARGE Urine RBC 10 /hpf Urine WBC 122 /hpf Urine Squamous Epithelial Cells 5 /hpf Urine Hyaline Casts 3 /lpf Urine Mucus MOD /lpf Microscopic Urinalysis Comment CULTURE INDICATED MDM Medical Decision Making Medical Screen Exam Complete: Yes Emergency Medical Condition: Yes Medical Record Reviewed: Yes Interpretation(s) Last Impressions Abdomen/Pelvis CT 09/02/17 0000 Signed Impressions: CONCLUSION: 1. Large volume ascites, carcinomatosis again noted. 2. Bilateral pulmonary consolidation and right effusion. 3. Stable retroperitoneal adenopathy. 4. Cirrhotic appearing liver. 5. Atherosclerosis. 6. Splenic mass again noted. Laboratory Tests Test 09/02/17 12:00 White Blood Count 6.1 TH/MM3 Red Blood Count 4.89 MIL/MM3 Hemoglobin 14.2 GM/DL Hematocrit 42.5 % Mean Corpuscular Volume 87.0 FL Mean Corpuscular Hemoglobin 29.0 PG Mean Corpuscular Hemoglobin Concent 33.3 % Red Cell Distribution Width 23.6 % Platelet Count 275 TH/MM3 Mean Platelet Volume 7.7 FL Neutrophils (%) (Auto) 64.9 % Lymphocytes (%) (Auto) 28.6 % Monocytes (%) (Auto) 5.7 % Eosinophils (%) (Auto) 0.1 % Basophils (%) (Auto) 0.7 % Neutrophils # (Auto) 3.9 TH/MM3 Lymphocytes # (Auto) 1.7 TH/MM3 Monocytes # (Auto) 0.3 TH/MM3 Eosinophils # (Auto) 0.0 TH/MM3 Basophils # (Auto) 0.0 TH/MM3 CBC Comment DIFF FINAL Differential Comment Prothrombin Time 11.5 SEC Prothromb Time International Ratio 1.1 RATIO Activated Partial Thromboplast Time 33.3 SEC Blood Urea Nitrogen 21 MG/DL Creatinine 0.96 MG/DL Random Glucose 101 MG/DL Total Protein 5.1 GM/DL Albumin 2.1 GM/DL Calcium Level 8.5 MG/DL Alkaline Phosphatase 131 U/L Aspartate Amino Transf (AST/SGOT) 72 U/L Alanine Aminotransferase (ALT/SGPT) 33 U/L Total Bilirubin 0.9 MG/DL Sodium Level 134 MEQ/L Potassium Level 4.2 MEQ/L Chloride Level 101 MEQ/L Carbon Dioxide Level 18.7 MEQ/L Anion Gap 14 MEQ/L Estimat Glomerular Filtration Rate 55 ML/MIN Lactic Acid Level 2.0 mmol/L Lipase 71 U/L Vital Signs Date Time Temp Pulse Resp B/P (MAP) Pulse Ox O2 Delivery O2 Flow Rate FiO2 09/02/17 11:20 98 16 130/81 (97) 100 Differential Diagnosis Ascites versus metabolic abnormality versus obstruction versus malignancy versus other Narrative Course Patient is a 2-year-old female presenting for evaluation of abdominal pain/ distention since Monday. Patient is a history of the same, requiring paracentesis. Patient's vital signs are stable. Labs and imaging ordered and pending. Patient will be placed on personnel monitor, continuous pulse oximetry. IV access established. CBC with no acute findings Chemistry with BUN 21, stable when compared to prior. Lactic acid is 2.0 APTT is 33.3, PT/INR is unremarkable. CT scan of the abdomen and pelvis which was read by the radiologist shows large volume ascites, carcinomatosis again noted. Bilateral pulmonary consolidation right effusion, stable retroperitoneal adenopathy, cirrhotic appearing liver, atherosclerosis and a splenic mass is again noted. Findings and plan of care were discussed with my attending physician. Patient will be discharged home, she will be scheduled for a therapeutic paracentesis on Monday. Patient is to continue home medications. Patient and family was advised to continue Eliquis, holding the dose on Brody night. They will call interventional radiology on Monday for further instructions. Patient is return to emergency department for any new or worsening symptoms. Patient and family verbalized understanding of these instructions. Patient stable for discharge. Diagnosis Primary Impression: Ascites Qualified Codes: R18.0 - Malignant ascites Additional Impressions: Renal cell carcinoma Qualified Codes: C64.9 - Malignant neoplasm of unspecified kidney, except renal pelvis UTI (urinary tract infection) Qualified Codes: N39.0 - Urinary tract infection, site not specified; R31.9 - Hematuria, unspecified Referrals: Yousif Jones MD 2 days Patient Instructions: Ascites (ED), General Instructions Additional Instructions: Hold Eliquis on Monday, call interventional radiology Monday for further instructions and to schedule paracentesis. Follow-up with Dr. Jones on Monday Return to emergency department immediately for any new or worsening symptoms Maintain adequate fluid intake Continue home medications as previously prescribed Call centralized scheduling on Monday to schedule the outpatient testing. The phone number is on the forms you were given upon discharge. Med/Other Pt SpecificInfo: Prescription(s) given, No Change to Meds Scripts Nitrofurantoin Monohydrate Macrocrystals (Nitrofurantoin Monohydrate Macrocrystals) 100 Mg Cap 100 MG PO BID for Infection for 7 Days, #14 CAP 0 Refills Prov: Ute Zheng 09/02/17 Disposition: 01 DISCHARGE HOME Condition: Stable Ute Zehng Sep 02, 2017 11:37
[2017-09-02] MEDS ORDERED: HYDR2TAB PO (11:42)
[2017-09-02] MEDS ORDERED: ONDA8TAB8 SL (11:42)
[2017-09-02] MEDS ORDERED: LORA1TAB12 PO (11:42)
[2017-09-02] MEDS ORDERED: CABO20TA PO (11:42)
[2017-09-02] MEDS ORDERED: SODIUM CHLOR 0.9% 1000 ML INJ 1,000 ML IV ONE (11:45)
[2017-09-02 12:09] VITALS: O2SAT 99
[2017-09-02 12:15] LABS: AUTOMATED NEUTROPHIL # 3.9 TH/MM3 (1.8-7.7); BASOPHIL % 0.7 % (0.0-2.0); EOSINOPHIL % 0.1 % (0.0-4.0); HEMATOCRIT 42.5 % (35.0-46.0); HEMOGLOBIN 14.2 GM/DL (11.6-15.3); LYMPH % 28.6 % (9.0-44.0); LYMPHOCYTE # 1.7 TH/MM3 (1.0-4.8); MEAN CORPUSCULAR HGB CONC 33.3 % (32.0-36.0); MEAN PLATELET VOLUME 7.7 FL (7.0-11.0); MONO % 5.7 % (0.0-8.0); MONOCYTE # 0.3 TH/MM3 (0-0.9); NEUT % 64.9 % (16.0-70.0); PLATELET COUNT 275 TH/MM3 (150-450); RED BLOOD COUNT 4.89 MIL/MM3 (4.00-5.30); RED CELL DISTRIBUTION WIDTH 23.6 % (11.6-17.2); WHITE BLOOD COUNT 6.1 TH/MM3 (4.0-11.0)
[2017-09-02] MEDS ORDERED: LORazepam 2 MG/ML VIAL IV PUSH ONE (12:30)
[2017-09-02 12:46] LABS: INTERNATIONAL NORMALIZED RATIO 1.1 RATIO; PROTHROMBIN TIME - PATIENT 11.5 SEC (9.8-11.6)
[2017-09-02 12:47] LABS: ALBUMIN 2.1 GM/DL (3.4-5.0); ALT (GPT) 33 U/L (10-53); AST (GOT) 72 U/L (15-37); BICARBONATE 18.7 MEQ/L (21.0-32.0); BLOOD UREA NITROGEN 21 MG/DL (7-18); CALCIUM 8.5 MG/DL (8.5-10.1); CHLORIDE 101 MEQ/L (98-107); CREATININE 0.96 MG/DL (0.50-1.00); GLOMERULAR FILTRATION RATE 55 ML/MIN (>89); GLUCOSE,RANDOM 101 MG/DL (74-106); SODIUM (NA) 134 MEQ/L (136-145)
--- NOTE | 2017-09-02 12:47 | RADRPT ---
EXAM DATE: 09/02/2017 12:38 PM EDT AGE/SEX: 82 years / Female INDICATIONS: Abdominal distention since Monday. CLINICAL DATA: This is the patient's initial encounter. Patient reports that signs and symptoms have been present for 1 day and indicates a pain score of 0/10. MEDICAL/SURGICAL HISTORY: . Kidney cancer. Appendectomy. Cholecystectomy. Hysterectomy. Car diac surgery. Nephrectomy. RADIATION DOSE: 6.64 CTDI (mGy) [place] [facility] [place]/O CONTRAST, 08/14/2017. . TECHNIQUE: Multiple contiguous axial images were obtained through the abdomen. Images were obtained using multiple row detector helical technique. Using dose reduction techniques, radiation dose was ke pt as low as reasonably achievable to obtain optimal diagnostic quality images. FINDINGS: There is a small right-sided pleural effusion, consolidation with air bronchogram formation in the li ngula and patchy consolidation in the right lower lobe. The liver has a cirrhotic appearance with rec analization of the umbilical vein and large volume of ascites throughout the abdomen and pelvis. Ther e is diverticulosis of the sigmoid colon. There is mild diffuse bowel wall thickening possibly relate d to the ascites. No signs of bowel obstruction. The patient is status post appendectomy, cholecystec shoshana, hysterectomy, and left nephrectomy. The adrenal glands are normal. Lung anterior aspect of the spleen and a 3.8 cm mass is noted. There is diffuse nodular soft tissue along the omentum characteris tic of omental caking. Atherosclerotic calcification of the aorta and iliac vessels. Retroperitoneal adenopathy again seen with multiple retroperitoneal lymph nodes, not significantly changed. Review of bone windows demonstrate degenerative changes of the spine. CONCLUSION: 1. Large volume ascites, carcinomatosis again noted. 2. Bilateral pulmonary consolidation and right effusion. 3. Stable retroperitoneal adenopathy. 4. Cirrhotic appearing liver. 5. Atherosclerosis. 6. Splenic mass again noted. Electronically signed by: Greg Monahan MD 09/02/2017 12:46 PM EDT
[2017-09-02 12:49] LABS: ALKALINE PHOSPHATASE 131 U/L (45-117); TOTAL BILIRUBIN ADULT 0.9 MG/DL (0.2-1.0); TOTAL PROTEIN 5.1 GM/DL (6.4-8.2)
[2017-09-02 13:15] VITALS: PULSE 81; RESP 20; TEMP 97.6; O2SAT 98
[2017-09-02 13:32] LABS: BLOOD, URINE TRACE (NEG); GLUCOSE,URINE NEG (NEG); HYALINE CAST, URINE 3 /lpf (RARE); KETONE, URINE 10 mg/dL (NEG); MUCUS URINE MOD /lpf (OCC); NITRITE,URINE NEG (NEG); SQUAMOUS EPITHELIAL CELL URINE 5 /hpf (0-5); URINE COLOR DARK-YELLOW (YELLW/STRAW); URINE LEUKOCYTE ESTERASE LARGE (NEG)
[2017-09-02 13:33] LABS: BILIRUBIN, URINE NEG (NEG)
[2017-09-02] MEDS ORDERED: NITR100C4 PO (13:47)
== END 2017-09-02 14:08 | disposition home or self-care (01) ==
LOC: NEPC 11:17
DX: R18.0 Malignant ascites (principal); C64.9 Malignant neoplasm of unspecified kidney, except renal pelvis; N39.0 Urinary tract infection, site not specified; R11.0 Nausea; E78.00 Pure hypercholesterolemia, unspecified; K21.9 Gastro-esophageal reflux disease without esophagitis; Z86.79 Personal history of other diseases of the circulatory system; Z86.69 Personal history of other diseases of the nervous system and sense organs
CPT/HCPCS: 74176; 80053; 81001; 83605; 83690; 85025; 85610; 85730; 87086; 96361; 96374; 99284; J2060; J7030

== ENCOUNTER 2017-09-04 10:14 | Day surgery (SDC) | payer MEDICARE, BC ==
[~2017-09-04 10:14] MED LIST changes: +CABO20TA PO; -CEPH-460 PO; +HYDR2TAB PO; +LORA1TAB12 PO; +NITR100C4 PO; +ONDA8TAB8 SL
[2017-09-04 10:57] VITALS: BP 130/89; PULSE 84; RESP 16; TEMP 98.9; O2SAT 96
[2017-09-04] MEDS ORDERED: LIDOCAINE HCL 1% PF 30 ML VIAL ONE (11:34)
[2017-09-04 12:30] VITALS: BP 121/69; PULSE 78; RESP 16; TEMP 97.5; O2SAT 99
[2017-09-04 12:47] VITALS: BP 128/58; PULSE 74; RESP 18; O2SAT 98
[2017-09-04] MEDS ORDERED: ALBUMIN 25% INJ 50 ML IV ONE (13:00)
[2017-09-04] MEDS ORDERED: ALBUMIN HUMAN 25% 25GM-W/12.5GM FOR 37.5GM IV ONE (13:30)
[2017-09-04] MEDS ORDERED: ALBUMIN HUMAN 25% 12.5GM-W/25GM FOR 37.5GM IV ONE (13:30)
--- NOTE | 2017-09-05 08:28 | RADRPT ---
EXAM DATE: 09/04/2017 12:34 PM EDT AGE/SEX: 82 years / Female INDICATIONS: Ascites. CLINICAL DATA: This is the patient's sequela encounter. Patient reports that signs and symptoms have been present for 3 weeks and indicates a pain score of 5/10. MEDICAL/SURGICAL HISTORY: . Hypertension. Renal cancer. Chemotherapy. . Nephrectomy. Hysterect susu. Cholecystectomy. COMPARISON: [facility] – [place], [place] GUIDED ABD PARACENTESIS, 05/03/2017. . FLUID: Total volume of 5,600 cc of clear, yellow fluid was removed. Fluid was discarded. Paracentesis was th erapeutic only. . . TECHNIQUE: Ultrasound guidance for abdominal paracentesis. Paracentesis. The risks, benefits, and alternatives to ultrasound guided paracentesis were explained to the patient in detail including the risk of bleeding and infection. Written and verbal informed consent was obt ained. With the patient on the ultrasound table, ultrasound imaging was used to select the most appropriate approach for paracentesis. Overlying skin was prepped and draped in the usual sterile fashion and wi th a local anesthetic, a dermatotomy was made with an 11 blade scalpel. A 6 [place] [employer] ca theter was introduced into the peritoneal cavity and fluid was collected. Post procedure scanning reveals no hematoma or other complication. The patient tolerated the procedu re well and left the ultrasound suite in stable condition. FINDINGS: Successful ultrasound-guided paracentesis as described above. CONCLUSION: 1. Successful ultrasound-guided paracentesis. Electronically signed by: Kye Johnston MD 09/05/2017 8:26 AM EDT
== END 2017-09-04 13:00 | disposition home or self-care (01) ==
LOC: HRAD 10:14 → HRIP 12:28 → HRAD 13:00
PROVIDERS: ATTEND Nurse Practitioner Family
DX: R18.8 Other ascites (principal); I10 Essential (primary) hypertension; Z85.528 Personal history of other malignant neoplasm of kidney; Z90.5 Acquired absence of kidney; Z90.49 Acquired absence of other specified parts of digestive tract; Z90.710 Acquired absence of both cervix and uterus
CPT/HCPCS: 49083; 96365; C1729; P9047